=== PATIENT | male | born 1975 | race Caucasian/White ===

== ENCOUNTER 2016-11-10 16:36 | Inpatient (IN) | payer OTHER ==
--- NOTE | ~2016-11-10 | DS ---
Unit #: [id number] #: [id number] Patient: LACHELLE VIDES [id number] [address] [address] [id number] I MR#: [id number] NAME: LACHELLE VIDES ROOM: 477 Age: 41 Sex: M Admission Date: 11/10/2016 : 1975 Discharge Date: 11/12/2016 Attending Physician: Radha Mckay M.D. Primary Care Physician: Octaviano Webster M.D. DISCHARGE SUMMARY DISCHARGE DIAGNOSES 1. Diabetic ketoacidosis. 2. Abdominal pain. 3. Vomiting, which is improved. 4. Hypokalemia. 5. Hypophosphatemia. 6. Posttraumatic stress disorder/depression. 7. Tobacco abuse. 8. Noncompliance issues. DISCHARGE MEDICATIONS 1. Phos-NaK packets 250 mg three times a day. 2. Protonix 40 mg daily. 3. Aspirin 81 mg daily. 4. NovoLog 6 units subcu three times a day. 5. Lantus 30 units b.i.d. 6. Pravastatin 20 mg daily. 7. Cymbalta 60 mg q.h.s. 8. Neurontin. Continue home dose. 9. Tylenol 650 mg q.4 p.r.n. LAB WORKUP ON DISCHARGE WBC 5.2, hemoglobin 12.4, hematocrit 35.9, platelet count 233. Sodium 133, potassium 3.1, chloride 106, bicarb 23, BUN 6, creatinine 0.5, calcium 8.1, magnesium 8.1, phosphorous 1.2. Blood cultures were negative. Hemoglobin A1C 15.3. BNP on admission was 14. Influenza A and B were negative. Lactic acid 0.9. HOSPITAL COURSE Mr. Burns is a 41-year-old male who was admitted to the hospital with nausea, vomiting, abdominal pain. The patient was admitted to ICU, was found to be in diabetic ketoacidosis. Insulin drip for DKA protocol was started. Dr. Henao was consulted. IV fluids was given for hydration. The patient received Zofran on a p.r.n. basis for vomiting. He did complain of diarrhea at home, although he did not have any episode of diarrhea in the hospital. C. diff. was ordered but most likely it was just gastroenteritis or secondary to DKA. The patient is doing much better at this time. The patient is noncompliant with his medications. Counseling down at length. He does verbalize understanding. VITAL SIGNS ON DISCHARGE: Blood pressure is 108/74. Respiratory rate 16. Pulse 89. temperature 98.8. CHEST: Fair air entry. No additional sounds. CARDIOVASCULAR: S1, S2 positive. Regular rhythm. Unit #: [id number] #: [id number] Patient: LACHELLE VIDES ABDOMEN: Soft. EXTREMITIES: Negative edema. DISCHARGE INSTRUCTIONS 1. The patient is being discharged home if okay with Dr. Henao. 2. Medication as per medication reconciliation. 3. Follow up with primary care provider on Monday. He already has appointment. 4. Potassium will be given 14 mEq before discharge. Dictated by... Radha Mckay M.D. Radha TD: 11/14/2016 07:22 JOB #: [id number] DISCHARGE SUMMARY Page 1 of 1 X Radha Mckay MD X DISCHARGE SUMMARY
--- NOTE | ~2016-11-10 | CR72 ---
[facility] A Service of [facility] RADIOLOGY TEXT RESULTS PATIENT: LACHELLE VIDES LOCATION: CICCU3 CICCU3-20 : [birth year] UNIT #: [id number] AGE: [address]: Radha Mckay MD SEX: M ORDER DR: [id number] [facility] [address] [facility]. [place], [place] [address] [id number] I MR#: [id number] Acc #: [id number] NAME: LACHELLE VIDES : 1975 SEX: M STUDY DATE/TIME: 11/10/2016 17:05 UNIT: CEDOF ROOM: 68199 STUDY DESCRIPTION: CR Chest Single View Portable Attending Physician: Radha Mckay M.D. Ordering Physician: Judie Martinez M.D. Primary Care Physician: Octaviano Webster M.D. MEDICAL IMAGING REPORT This report is preliminary unless electronic signature is present EXAM Portable chest radiograph. DATE OF EXAM 11/10/2016 INDICATION Shortness of breath and cough for 5 days. FINDINGS Heart size is within normal limits. No acute infiltrates are seen. There is no pneumothorax or pleural effusion, curvilinear lucency overlying the right hemithorax is favored to be related to a skin fold. No acute infiltrates are identified. No aggressive osseous abnormalities are seen. Dictated by... Aretha Mahmood M.D. THIS IS AN ELECTRONICALLY VERIFIED REPORT Aretha Mahmood M.D. at 11/11/2016 4:30 PM AFF/uriah TD: 11/10/2016 21:46 JOB #: [id number] MEDICAL IMAGING REPORT Page 1 of 1 COPY
--- NOTE | ~2016-11-10 | A ---
[facility] Nutrition Therapy DATE: 11/11/16 Patient: LACHELLE PELAYOKACYGURJIT Physician: EKATERINA Address: [address] [place] [address] DRIVE Room/Bed: [address] [place] [address], Zip: [place] [address] Admit Date: 11/10/16 Date of : [birth year] Height: 6 0 Weight: 128 58.05 NUTRITIONAL ASSESSMENT: REASON: Seen due to dx and low BMI Admitting Dx: 41 y/o male admitted with DKA PMH: No new H&P available, info obtained from old documentation: DM, DKA, opiate abuse, non-compliance, GERD, HLD, [place], COPD, C. diff, CAD, neuropathy, seizure disorder, colitis, gastritis Anthropometrics: Ht: 72", Wt: 128 lbs (58.1 kg), BMI: 17 (underweight) Labs: Na 133, K+ 2.8, Phos 1.4, Glucose 146, POC 140-227, BUN 8, Creat 0.4, A1C 15.3 Meds: Novolin, Zofran, PPI, MgSO4, KCL, NACL I/O & Bowel function: No shift assessment available yet Skin Integrity: No shift assessment available yet Estimated Nutrition Needs: Increased 2' underweight status Assessment: Chart reviewed, events noted. See admitting dx and PMH as stated above. Patient on DKA protocol, glucose 333 md/dL upon admission. Patient has a hx of non-compliance with diabetic medications/diet. He is currently on a clear liquid diet, remains in the ER at this time- RD unable to interview. RD previously assessed last on 05/30/16 for same dx this admission- notes reviewed. Patient was 121 lbs at that time showing 7 lb weight gain since previous admission if weights are accurate, but he is still clinically underweight. RD left CC diet education materials at bedside, @ follow-up the patient requested RD return when his mother is present, as she cooks all his meals. However the patient was discharged before another f/u was able to be made. It was noted in previous documentation that the patient is missing teeth and requires soft foods, has hx of diarrhea noting hx of C. diff, gastritis and colitis. No shift assessment or updated H&P available yet. RD will follow up to assess tolerance of diet advancement, PO intake, education needs. See recs below. Dx: 1) Underweight r/t history, diet, lifestyle AEB BMI 17. 2) Altered nutrition related lab values r/t hx non-compliance AEB DKA, Hgb A1C 15.3, glucose POC 140-227 mg/dL. Intervention: CC diet, Glucerna TID, diet education? [facility] Nutrition Therapy DATE: 11/11/16 Patient: LACHELLE VIDES Physician: EKATERINA Address: [address] [place] [address] DRIVE Room/Bed: [address] [place] [address], Zip: [place] [address] Admit Date: 11/10/16 Date of : [birth year] Height: 6 0 Weight: 128 58.05 Monitoring, Evaluation and Goals: 1. Tolerance of diet advancement with PO intake > 50-75% of meals. 2. Gradual weight gain towards a healthy BMI range. 3. Improvement in glucose, lytes. Monitor: Per protocol, criteria to determine if above goals met Recommendations: 1. Advance oral diet as tolerated to 75g carb/mechanical soft diet (patient is missing teeth). Encourage small frequent meals to ensure adequate kcal/protein intake, as the patient is underweight. 2. Once diet advanced to full liquids or beyond please order chocolate Glucerna shakes TID. 3. Replace lytes. Optimize insulin regimen to promote adequate blood glucose control. 4. RD will follow-up to further determine diet education needs. Patient has a hx of being non-compliant with diabetic diet and medications in the past, RD has educated before. 5. Fluids per MD noting hyponatremia. 6. Please weigh q 3 days for monitoring purposes. RD will follow Moderate nutrition risk Respectfully, Candelaria Craig, RD, LD Food and Nutritional Services [facility] [place] [facility] cc: client file
--- NOTE | ~2016-11-10 | CO ---
Unit #: [id number] #: [id number] Patient: LACHELLE VIDES [id number] [address] [place], [place] [address] [id number] I MR#: [id number] NAME: LACHELLE VIDES ROOM: 477 Age: 41 Sex: M Admission Date: 11/10/2016 : 1975 Attending Physician: Radah Mckay M.D. Primary Care Physician: Octaviano Webster M.D. Consultation Date: 11/11/2016 CONSULTATION REPORT REASON FOR CONSULT Diabetes, ketoacidosis. REQUESTING PHYSICIAN Dr. Mckay. HISTORY OF PRESENT ILLNESS This is a 41-year-old gentleman who has history of type 1 diabetes mellitus, history of DKA in the past, multiple previous admissions who presented to the emergency room for not feeling well for about one week duration. He reports he started having nausea, vomiting, diarrhea and could not keep anything p.o. On arrival in emergency room, he was found to be in diabetic ketoacidosis. The blood glucose levels were (1) , pH was 7.1, bicarbonates were 8.5. Chemistry: Blood glucose was above 300 with a low bicarbonate and hyponatremia. He was admitted. He was started on insulin drip and IV hydration, transferred to the unit bed where patient is being seen at this time. He is awake and alert. Reports he has been taking his insulin regularly, has not missed any doses. PAST MEDICAL HISTORY 1. Type 1 diabetes mellitus, poorly controlled. 2. History of diabetic ketoacidosis in the past. 3. History of Clostridium difficile. 4. Hyperlipidemia. 5. Depression. 6. Posttraumatic disorder. 7. Stress test. 8. Peripheral neuropathy. 9. COPD. PAST SURGICAL HISTORY 1. Left shoulder surgery. 2. Left foot plantar abscess I and D. 3. History of EDG, colonoscopy in the past. SOCIAL HISTORY Lives with mother. Continues to smoke from several years. Declines alcohol. Urine drug screen is positive for marijuana, amphetamines. FAMILY HISTORY Diabetes and coronary artery disease. HOME MEDICATIONS 1. Lantus 30 units twice daily. Unit #: [id number] #: [id number] Patient: LACHELLE VIDES 2. Humalog per sliding scale. 3. Zanaflex. 4. Cymbalta. 5. Aspirin. 6. Protonix. REVIEW OF SYSTEMS A 10-point review of systems is completed. It is unremarkable at this time. Patient reports he is hungry. He has no nausea, vomiting. Diarrhea is resolved at this time. He has no abdominal pain. He is awake, alert, oriented to time, place, and person. The rest of the 10-point review of systems unremarkable. PHYSICAL EXAMINATION GENERAL: He is awake and alert. VITAL SIGNS: Vitals stable. Afebrile. Blood pressure is 107/87. HEENT: EOMI. Pupils equal, react to light. NECK: Supple. No thyromegaly noted. CHEST: Good air entry. CARDIOVASCULAR: Regular rhythm. No murmurs. ABDOMEN: Soft, nontender. Bowel sounds positive. EXTREMITIES: No edema noted. NEUROLOGIC: Nonfocal DIAGNOSTIC STUDIES LABORATORY: Creatinine 0.4, sodium 133, potassium 2.9. Anion gap is 7. Phosphorous is 1.4. A1c is 15.3. ASSESSMENT 1. Diabetic ketoacidosis, which is resolved. 2. Type 1 diabetes mellitus, poorly controlled. 3. History of polysubstance abuse and tobacco use. PLAN 1. Will discontinue insulin drip and IV fluids. 2. Will start patient on Levemir 20 units twice daily. 3. NovoLog 6 units each meal. 4. Consistent carb diet. 5. Cover with supplemental insulin as needed. 6. Accu-Cheks a.c. and at bedtime. 7. Replace electrolytes as per protocol including magnesium, potassium, and phosphorous. Thanks again for consultation. Dictated by... Yamileth Quick/marisela TD: 11/12/2016 15:25 JOB #: [id number] Unit #: [id number] #: [id number] Patient: LACHELLE VIDES CONSULTATION REPORT Page 1 of 1 X Bita Henao MD CONSULTATION REPORT
--- NOTE | ~2016-11-10 | HP ---
Unit #: [id number] #: [id number] Patient: LACHELLE VIDES [id number] [facility] [address] [facility]. [place], [place] [address] [id number] I MR#: [id number] NAME: LACHELLE VIDES ROOM: CIC3 Age: 41 Sex: M Admission Date: 11/10/2016 : 1975 Attending Physician: Radha Mckay M.D. Primary Care Physician: Octaviano Webster M.D. HISTORY AND PHYSICAL CHIEF COMPLAINT Vomiting, diarrhea and abdominal pain. HISTORY OF PRESENTING ILLNESS A 41-year-old male who has multiple medical problems, has been admitted multiple times. Last admission to [facility] was on June 04, 2016. At that time, he was diagnosed with C. diff. infection and DKA. The patient is known to be very noncompliant. His primary care provider is Dr. Webster. According to the patient, the last few days he has been having vomiting, diarrhea and abdominal pain. Abdominal pain was gradually getting worse. It was more than what he has normally with his stool. According to him, he does not think he has C. diff. at this time. He does not complain of fever but has been complaining of headache. According to him, headache is severe and the level is 9 to 10/10. The patient does seem to have a history of chronic pain. No complaint of chest pain. No complaint of palpitations. No complaint of dizziness or syncopal episode. PAST MEDICAL HISTORY 1. Diabetes mellitus. 2. Hyperlipidemia. 3. History of depression/posttraumatic stress disorder. 4. Peripheral neuropathy. 5. COPD. PAST SURGICAL HISTORY 1. History of left shoulder surgery. 2. Left foot plantar abscess I and D. 3. History of EGD and colonoscopy in the past. SOCIAL HISTORY Patient lives with mother. The patient is a smoker, has been smoking for a long period of time. No history of alcohol abuse. His urine tox screen is positive for marijuana and amphetamines. FAMILY HISTORY Diabetes and coronary artery disease. HOME MEDICATIONS 1. Pravastatin 20 mg daily. 2. Lantus 30 units subcu twice a day. 3. Humalog sliding scale with meals. 4. Zanaflex 4 mg three times a day. 5. Neurontin 800 mg three times a day. Unit #: [id number] #: [id number] Patient: LACHELLE VIDES 6. Cymbalta 60 mg q.h.s. 7. Aspirin 81 mg daily. 8. Protonix 40 mg daily. Again, I am not sure whether he has been taking medication even this time. REVIEW OF SYSTEMS The patient has no complaint of fever or chills. He has no complaint of chest pain or palpitations. No complaint of ear, nose, throat pain. No complaint of dizziness or syncopal episode. No complaint of any skin problem. No complaint of leg edema. He does complain of polyuria and polydipsia. No complaint of blurred vision. PHYSICAL EXAMINATION VITAL SIGNS: The patient is being evaluated in ICU, bed 20. At this time, blood pressure is 101/66, respiratory rate 12, pulse 75, temperature 97.9. Oxygen saturation is 99%. HEENT: Head is normocephalic. Eye movements are normal. NECK: Supple. CHEST: Fair air entry. No additional sounds. CARDIOVASCULAR: S1, S2 positive. Regular rhythm. ABDOMEN: Generalized tenderness is present. Bowel sounds positive in all quadrants. EXTREMITIES: Negative edema. Pulses are palpable. CENTRAL NERVOUS SYSTEM: Awake, alert, oriented x3. No focal neurological deficit. DIAGNOSTIC STUDIES LABORATORY: WBC 1.3, hemoglobin 15.1, hematocrit 45.7, platelet count 288. Influenza A and B is negative. Lactic acid 0.9. BNP 14. Sodium 129, potassium 4.1, chloride 99, BUN 11, creatinine 0.6, bicarb 9. Again, ABG was done 11/10/16 which shows pH 7.133, pCO2 25.4, pO2 54.4, oxygen saturation 88%. Magnesium 1.8. Amylase and lipase within normal range. Urinalysis: Ketones present. Hemoglobin A1C 15.3. IMAGING: CT scan of the abdomen and pelvis was done which showed mild wall thickening in multiple loops of small bowel suggesting enteritis. ASSESSMENT 1. The patient is being admitted to ICU with diagnosis of: 2. Diabetic ketoacidosis. 3. Abdominal pain, possible enteritis. 4. Vomiting, which is improved. 5. History of C. diff. in the past. 6. Severe hypokalemia. Potassium of 2.8. 7. Posttraumatic stress disorder/depression. 8. Noncompliance issues. 9. Tobacco abuse. PLAN Admit to ICU. The patient is being started on insulin drip DKA protocol. Dr. Henao, monitor tech, has been consulted. The patient will be NPO. Because of patient's enteritis kind of finding on the CT scan, we are going to start on IV Flagyl. Stool for C. diff. will be done. GI and DVT prophylaxis will be done. Please refer to progress note for further orders. Unit #: [id number] #: [id number] Patient: LACHELLE VIDES Dictated by Yamileth Valencia TD: 11/11/2016 14:27 JOB #: [id number] HISTORY AND PHYSICAL Page 1 of 1 X Radha Mckay MD X HISTORY AND PHYSICAL
--- NOTE | ~2016-11-10 | EKG ---
PATIENT: LACHELLE VIDES UNIT #: [id number] Ventricular Rate: 99 BPM Atrial Rate: 99 BPM P-R Interval: 172 ms QRS Duration: 92 ms Q-T Interval: 372 ms QTC Calculation(Bezet): 477 ms P Sanford: 77 degrees Calculated R Sanford: 64 degrees Calculated T Sanford: 72 degrees Diagnosis Line: Normal sinus rhythm Diagnosis Line: Right atrial enlargement Diagnosis Line: Low voltage QRS Diagnosis Line: Borderline ECG Diagnosis Line: When compared with ECG of 26-AUG-2016 09:40, Diagnosis Line: No significant change was found Diagnosis Line: Confirmed by ERVIN DO MD ([id number]) on 11/11/2016 Diagnosis Line: 7:15:39 PM INTERPRETING MD: ERNESTINA SOUZA
--- NOTE | ~2016-11-10 | FU ---
[facility] Nutrition Therapy DATE: 11/12/16 Patient: LACHELLE PELAYOKACYGURJIT Physician: EKATERINA Address: [address] [place] [address] DRIVE Room/Bed: [address] [place] [address], Zip: [place] [address] Admit Date: 11/10/16 Date of : [birth year] Height: 6 0 Weight: 123 56 NUTRITION MONITORING/FOLLOW-UP: Reason: PT SEEN FOR DIET EDUCATION RD PROVIDED WRITTEN AND VERBAL CC DIET EDUCATION. RD PROVIDED LIST OF FOODS TO AVOID/LIMIT AND FOODS TO EAT MORE OFTEN. RD ALSO EMPHASIZED IMPORTANCE OF MAINTAINING CONSISTENT MEAL SCHEDULE AND LIMITING SUGAR-SWEETENED BEVERAGES. PT DEMONSTRATED UNDERSTANDING OF THE TOPIC. OF NOTE, RDs HAVE PROVIDED DIET EDUCATION AT PAST ADMITS. PT REPORTED NO DIET QUESTIONS AT THIS TIME. RD TO REMAIN AVAILABLE. Recommendations: 1. CONTINUE TO ENCOURAGE COMPLIANCE OF CURRENT DIET ORDER-CC 2. ORDER TRUMAN GLUCERNA SHAKES TID W/MEALS RD WILL F/U PER PROTOCOL Respectfully, MAR SANTOS MS, RD, LD Food and Nutritional Services [facility] cc: client file
--- NOTE | ~2016-11-10 | CT2 ---
[facility] A Service of [facility] RADIOLOGY TEXT RESULTS PATIENT: LACHELLE VIEDS LOCATION: CEDOF : 71 UNIT #: [id number] AGE: [address]: Radha Mckay MD SEX: M ORDER DR: [id number] [facility] [address] [facility]. [place], [place] [address] [id number] I MR#: [id number] Acc #: [id number] NAME: LACHELLE VIDES : 1975 SEX: M STUDY DATE/TIME: 11/10/2016 19:04 UNIT: CEDOF ROOM: 86363 STUDY DESCRIPTION: CT Abd and Pelv W Cont Attending Physician: Radha Mckay M.D. Ordering Physician: Judie Martinez M.D. Primary Care Physician: Octaviano Webster M.D. MEDICAL IMAGING REPORT This report is preliminary unless electronic signature is present EXAM CT abdomen and pelvis INDICATION Nausea and vomiting. Hyperglycemia. Generalized abdominal pain for [address] of the abdomen and pelvis with 100 mL Isovue-370 IV contrast. Coronal and sagittal reconstructions were obtained. This CT exam was performed with one or more of the following radiation dose reduction techniques: automatic exposure control, adjustment of mA and/or kV according to patient size, and iterative reconstruction. COMPARISON CT abdomen dated 12/27/2015. FINDINGS The solid abdominal organs enhance normally. The gallbladder is not distended. There is mild wall thickening throughout the proximal jejunal loops. This is fairly similar to the prior study. There is no dilated bowel segments. The appendix is normal. No enlarged retroperitoneal or mesenteric lymph nodes. No ascites. Abdominal aorta is normal in caliber. PELVIS: The bladder is unremarkable. No enlarged pelvic or inguinal lymph nodes. IMPRESSION Mild wall thickening in multiple loops of small bowel suggesting enteritis. No evidence of small bowel obstruction, abscess, or perforation. [facility] A Service of [facility] RADIOLOGY TEXT RESULTS PATIENT: LACHELLE VIDES LOCATION: CEDOF : [birth year] UNIT #: [id number] AGE: [address]: Radha Mckay MD SEX: M ORDER DR: Dictated by... Spenser Bernal M.D. THIS IS AN ELECTRONICALLY VERIFIED REPORT Spenser Bernal M.D. at 11/11/2016 7:55 AM ZOILA/wilver TD: 11/10/2016 23:14 JOB #: [id number] MEDICAL IMAGING REPORT Page 1 of 1 COPY
[~2016-11-10 16:36] MED LIST: ACETAMINOPHEN PO; ACETAMINOPHEN650 M3 PO; ALBUTEROL17 GM INH; ALIGN4 MG PO; AMITRIPTYLINE H25 MG PO; AMITRYPTYLINE PO; ASPIR-TRIN325 MG PO; ASPIRIN PO; ASPIRIN81 M1 PO; ASPIRIN81 M2 PO; ASPIRIN81 MG PO; AUGMENTIN875 M1 PO; BACITRACIN1 GM OINT EXT; BACITRACIN3.5 GM; BACTRIM DS TABL1 TAB PO; CALAZIME P113 GM OI1 EXT; CLARITIN10 M2 PO; CLEOCIN HCL300 M1 PO; DARVOCET-N 1001 TA1 PO; DELTASONE20 MG PO; DICLOFENAC PO; DIFICID200 MG PO; DIFLUCAN200 MG PO; DOCUSATE SODIU100 MG PO; DULCOLAX5 MG PO; DULOXETINE HCL60 MG PO; FISH OIL PO; FLAGYL PO; FLAGYL250 M1 PO; FLORASTOR PO; FOLIC ACID PO; FOLIC ACID1 MG PO; GABAPENTIN400 M2 PO; GABAPENTIN600 MG PO; GABAPENTIN800 MG PO; GLUMETZA1000 MG/BO PO; HUMALOG100 U/M1; HUMALOG100 U/M2 SUBQ; HUMALOG100 U/ML; HUMALOG100 U/ML INJ; IBUPROFEN PO; IBUPROFEN800 MG PO; IMODIUM2 MG PO; INVOKANA100 MG PO; K-DUR20 ME1 PO; K-LOR20 MEQ PO; KCL PO; KEFLEX PO; KEFLEX500 M1 PO; KEFLEX500 MG PO; LANTUS100 U/ML INJ; LANTUS100 U/ML SQ; LANTUS100 U/ML SUBQ; LANTUS100 UNITS/ SUBQ; LEVAQUIN250 MG PO; LEVAQUIN750 MG PO; LEVEMIR; LEVEMIR SUBQ; LEVEMIR100 U/ML SUBQ; LEVEMIR100 UNITS/ SUBQ; LOMOTIL TABLET1 TAB PO; LORTAB 5/500 TA1 TA1 PO; LORTAB 5/500 TA1 TA2; LORTAB 5/500 TA1 TA2 PO; METFORMIN HCL1000 M1 PO; METFORMIN PO; MILK OF MAGNESIA PO; MULTIVITAMIN W/1 TAB PO; MUPIROCIN0.9 GM; NEURONTIN800 MG PO; NEUTRA-PHOS1.25 GM PO; NEXIUM PO; NICOTINE T1 PATCH .2 TOP; NOVOLOG100 U/ML SUBQ; PAIN & FEVER325 MG PO; PERICOLACE; PRAVASTATIN SOD40 MG PO; PRENATAL1 TA1 PO; PRINIVIL5 MG PO; PROMETHAZINE D118 ML PO; PROTONIX PO; PROTONIX40 MG/BLIS PO; REGLAN10 MG PO; REMERON PO; ROXICODONE5 MG PO; THIAMINE HCL100 MG PO; TRIAM; TRIAMCINOLONE AC1 GM EXT; TUMS PO; VOLTAREN75 MG PO; ZITHROMAX PO; ZOCOR PO; ZOCOR20 MG
[2016-11-10 16:59] LABS: BASOPHIL# 0.2 X10e3 (0-0.3); BASOPHIL% 2.2 % (0-2.5); EOSINOPHIL# 0.1 X10e3 (0-0.7); EOSINOPHIL% 1.7 % (0.0-7.0); HEMATOCRIT 45.7 % (38.0-50.0); HEMOGLOBIN 15.1 gm/dL (13.0-16.0); LYMPHOCYTE# 2.1 X10e3 (1.0-3.5); LYMPHOCYTE% 28.3 % (17.0-45.0); MEAN CELL VOLUME 94.9 FL (83-96); MEAN CORPUSCULAR HEMOGLOBIN 31.4 PG (28-34); MEAN CORPUSCULAR HGB CONC 33.1 g/dL (30-36); MEAN PLATELET VOLUME 8.2 FL (6.5-11.5); MONOCYTE# 0.4 X10e3 (0-1.0); NEUTROPHIL# 4.5 X10e3 (1.5-7.1); NEUTROPHIL% 61.8 % (40-75); PLATELET COUNT 288 X10e3 (140-420); RED BLOOD COUNT 4.81 X10e (3.90-5.60); RED CELL DISTRIBUTION WIDTH 13.8 % (11.0-15.5); WHITE BLOOD COUNT 7.3 X10e3 (4.0-10.5)
[2016-11-10 17:08] LABS: DIFF IND NO
[2016-11-10 17:11] LABS: INFLUENZA A NEG (NEG); INFLUENZA B NEG (NEG)
[2016-11-10 17:16] LABS: INR 0.9; PARTIAL THROMBOPLASTIN TIME 27.1 SECONDS (23.5-31.3); PROTHROMBIN TIME (PATIENT) 9.7 SECONDS (9.6-11.5)
[2016-11-10 17:25] LABS: URINE SOURCE CLEAN CATCH
[2016-11-10 17:27] LABS: POC - CKMB 1.8 ng/mL (0.0-7.9); POC - TROPONIN <0.05 ng/mL (<=0.05)
[2016-11-10 17:32] LABS: URINE APPEARANCE CLEAR; URINE BILIRUBIN NEG (NEG); URINE BLOOD NEG (NEG); URINE COLOR YELLOW; URINE GLUCOSE >1000 MG/DL (NEG); URINE KETONE 3+ (NEG); URINE LEUKOCYTE ESTERASE NEG (NEG); URINE NITRATE NEG (NEG); URINE PROTEIN 1+ (NEG); URINE SPECIFIC GRAVITY 1.031 (1.003-1.035); URINE UROBILINOGEN 0.2 MG/DL (NEG)
[2016-11-10 17:34] LABS: URBCS1 AUWI 0-2 /[HPF] (0-2); URINE BACTERIA AUWI NEG (NEGATIVE); URINE SQUAMOUS EPITHELIAL CELL NONE SEEN /[HPF]; UWBCS1 AUWI 0-2 (0-5)
[2016-11-10 17:35] LABS: CULTURE INDICATED? NO
[2016-11-10 17:41] LABS: AMPHETAMINE POS (NEG); BARBITURATES NEG (NEG); BENZODIAZEPINES NEG (NEG); COCAINE NEG (NEG); MARIJUANA POS (NEG); OPIATES NEG (NEG); TRICYCLIC ANTIDEPRESSANTS NEG (NEG); U METHADONE NEG (NEG)
[2016-11-10 18:13] LABS: ALBUMIN SERUM 4.7 g/dL (3.5-5.0); ALKALINE PHOSPHATASE 86 U/L (32-92); ALT (SGPT) 13 U/L (10-40); AST (SGOT) 12 U/L (10-42); BILIRUBIN,TOTAL 1.4 mg/dL (0.2-2.0); BLOOD UREA NITROGEN 11 mg/dL (9-23); BUN/CREATININE RATIO 18.33; CALCIUM SERUM 8.6 mg/dL (8.4-10.2); CHLORIDE 99 mmol/L (100-111); CREATININE SERUM 0.6 mg/dL (0.6-1.4); GLOM FILT RATE Estimated 123.2 mL/min (>60); GLUCOSE FASTING 333 mg/dL (70-110); POTASSIUM 4.1 mmol/L (3.5-5.1); PROTEIN TOTAL SERUM 7.7 g/dL (6.0-8.3); SODIUM 129 mmol/L (135-145)
[2016-11-10 18:15] LABS: ALCOHOL BLOOD <5 mg/dL ([, 0]); BETA HYDROXYBUTYRATE 10.67 MMOL/L (0.02-0.27); BILIRUBIN, DIRECT <0.1 mg/dL (0.0-0.2); BILIRUBIN,INDIRECT 1.3 mg/dL (0.0-0.9); CARBON DIOXIDE 9 mmol/L (22-31)
[2016-11-10 19:46] LABS: POC - CKMB <1.0 ng/mL (0.0-7.9); POC - TROPONIN <0.05 ng/mL (<=0.05)
[2016-11-10] MEDS ORDERED: PRAVACHOL (20:06)
[2016-11-10] MEDS ORDERED: HUMALOG100 UNIT/1 (20:06)
[2016-11-10] MEDS ORDERED: LANTUS100 U/ML (20:07)
[2016-11-10] MEDS ORDERED: NEURONTIN (20:07)
[2016-11-10] MEDS ORDERED: PROTONIX (20:07)
[2016-11-10] MEDS ORDERED: PROBIOTIC1 EAC1 (20:09)
[2016-11-10] MEDS ORDERED: ZANAFLEX (20:10)
[2016-11-10 20:27] LABS: ARTERIAL BLD GAS O2 SATURATION 88.2 % (90.0-100.0); ARTERIAL BLOOD GAS CARBOXY HB 0.9 %sat (0.0-9.0); ARTERIAL BLOOD GAS HCO3 8.5 mmol/L; ARTERIAL BLOOD GAS MET HB 0.7 %sat (0.0-2.0); ARTERIAL BLOOD GAS PCO2 25.4 mmHg (35.0-45.0)
[2016-11-10 20:33] LABS: ARTERIAL BLOOD GAS ALLEN TEST NORMAL; ARTERIAL BLOOD GAS ART SITE LEFT RADIAL; ARTERIAL BLOOD GAS PO2 54.4 mmHg (80.0-100); ARTERIAL BLOOD GAS pH 7.133 (7.350-7.450); ARTERIAL DRAW? YES
[2016-11-10 21:06] LABS: AMYLASE 22 U/L (0-46); LIPASE 24 U/L (22-51)
[2016-11-10 21:39] LABS: BUN/CREATININE RATIO 18.33; CALCIUM SERUM 7.7 mg/dL (8.4-10.2); CREATININE SERUM 0.6 mg/dL (0.6-1.4); GLOM FILT RATE Estimated 123.2 mL/min (>60)
[2016-11-11 01:39] LABS: CALCIUM SERUM 7.5 mg/dL (8.4-10.2); CREATININE SERUM 0.5 mg/dL (0.6-1.4); GLOM FILT RATE Estimated 132.8 mL/min (>60); POTASSIUM 3.1 mmol/L (3.5-5.1)
[2016-11-11 07:57] LABS: CALCIUM SERUM 7.7 mg/dL (8.4-10.2); CREATININE SERUM 0.4 mg/dL (0.6-1.4); GLOM FILT RATE Estimated 145.5 mL/min (>60)
[2016-11-11 08:01] LABS: POTASSIUM 2.8 mmol/L (3.5-5.1)
[2016-11-11] MEDS ORDERED: ASPIRIN81 M2 PO (09:09)
[2016-11-11] MEDS ORDERED: ZANAFLEX4 M1 PO (09:09)
[2016-11-11] MEDS ORDERED: PROTONIX PO (09:09)
[2016-11-11] MEDS ORDERED: DULOXETINE HCL60 MG PO (09:09)
[2016-11-11] MEDS ORDERED: NEURONTIN800 MG PO (09:09)
[2016-11-11] MEDS ORDERED: LANTUS100 U/ML SUBQ (09:10)
[2016-11-11] MEDS ORDERED: PRAVASTATIN SOD20 MG PO (09:10)
[2016-11-11] MEDS ORDERED: HUMALOG100 UNIT/1 SUBQ (09:11)
[2016-11-11 13:56] LABS: BUN/CREATININE RATIO 17.5; CALCIUM SERUM 7.9 mg/dL (8.4-10.2); CREATININE SERUM 0.4 mg/dL (0.6-1.4); GLOM FILT RATE Estimated 145.5 mL/min (>60)
[2016-11-11 13:58] LABS: POTASSIUM 2.9 mmol/L (3.5-5.1)
[2016-11-11 19:56] LABS: BUN/CREATININE RATIO 16.66; CALCIUM SERUM 8.2 mg/dL (8.4-10.2); CREATININE SERUM 0.3 mg/dL (0.6-1.4); GLOM FILT RATE Estimated 163.8 mL/min (>60); POTASSIUM 3.8 mmol/L (3.5-5.1)
[2016-11-12 05:43] LABS: BASOPHIL# 0.1 X10e3 (0-0.3); BASOPHIL% 1.5 % (0-2.5); EOSINOPHIL# 0.3 X10e3 (0-0.7); EOSINOPHIL% 5.6 % (0.0-7.0); HEMATOCRIT 35.9 % (38.0-50.0); HEMOGLOBIN 12.4 gm/dL (13.0-16.0); LYMPHOCYTE# 2.2 X10e3 (1.0-3.5); LYMPHOCYTE% 42.8 % (17.0-45.0); MEAN CELL VOLUME 91.3 FL (83-96); MEAN CORPUSCULAR HEMOGLOBIN 31.5 PG (28-34); MEAN CORPUSCULAR HGB CONC 34.5 g/dL (30-36); MEAN PLATELET VOLUME 7.8 FL (6.5-11.5); MONOCYTE# 0.5 X10e3 (0-1.0); MONOCYTE% 9.2 % (3.0-12.0); NEUTROPHIL# 2.1 X10e3 (1.5-7.1); NEUTROPHIL% 40.9 % (40-75); PLATELET COUNT 233 X10e3 (140-420); RED BLOOD COUNT 3.93 X10e (3.90-5.60); RED CELL DISTRIBUTION WIDTH 13.9 % (11.0-15.5); WHITE BLOOD COUNT 5.2 X10e3 (4.0-10.5)
[2016-11-12 05:44] LABS: DIFF IND NO
[2016-11-12 06:43] LABS: ALBUMIN SERUM 3.3 g/dL (3.5-5.0); BILIRUBIN,TOTAL 0.3 mg/dL (0.2-2.0); CALCIUM SERUM 8.1 mg/dL (8.4-10.2); CREATININE SERUM 0.5 mg/dL (0.6-1.4); GLOM FILT RATE Estimated 132.8 mL/min (>60); MAGNESIUM 1.8 mg/dL (1.6-3.0); POTASSIUM 3.1 mmol/L (3.5-5.1); PROTEIN TOTAL SERUM 5.2 g/dL (6.0-8.3)
[2016-11-12] MEDS ORDERED: PHOS NAK PO (13:32)
[2016-11-12] MEDS ORDERED: APAP325 M2 PO (13:34)
[2016-11-12] MEDS ORDERED: NOVOLOG100 U/ML SUBQ (13:38)
[2017-01-12] MEDS ORDERED: LANTUS100 U/ML SUBQ (09:25)
[2017-01-12] MEDS ORDERED: HUMALOG100 UNIT/1 SUBQ (09:26)
[2017-01-12] MEDS ORDERED: HUMALOG100 UNIT/1 (09:26)
[2017-01-12] MEDS ORDERED: PROTONIX PO (09:27)
[2017-01-12] MEDS ORDERED: LO-DOSE ASPIRIN81 M1 PO (09:27)
[2017-01-12] MEDS ORDERED: PRAVASTATIN SOD40 MG PO (09:27)
[2017-01-12] MEDS ORDERED: PHENERGAN PO (09:28)
[2017-01-12] MEDS ORDERED: PHENERGAN LIQUID PO (09:29)
[2017-01-12] MEDS ORDERED: GABAPENTIN800 MG PO (09:30)
[2017-01-12] MEDS ORDERED: CYMBALTA PO (09:30)
[2017-01-12] MEDS ORDERED: PROBIOTIC1 EAC2 PO (09:30)
[2017-01-12] MEDS ORDERED: ZYPREXA20 MG PO (09:31)
[2017-04-27] MEDS ORDERED: ASPIRIN81 M2 PO (11:15)
[2017-04-27] MEDS ORDERED: PROTONIX PO (11:15)
[2017-04-27] MEDS ORDERED: PATIENT'S PHARMACY (11:15)
[2017-04-27] MEDS ORDERED: LORTAB 7.5-3251 EACH PO (11:15)
[2017-04-27] MEDS ORDERED: HUMALOG KW100 UNIT/1 SUBQ (11:16)
[2017-04-27] MEDS ORDERED: GABAPENTIN400 M2 PO (11:16)
[2017-04-27] MEDS ORDERED: DULOXETINE HCL60 M1 PO (11:16)
[2017-04-27] MEDS ORDERED: BASAGLAR K100 UNIT/1 SUBQ (11:16)
[2017-04-27] MEDS ORDERED: PRAVACHOL PO (11:16)
[2017-04-27] MEDS ORDERED: ZYPREXA PO (11:16)
== END 2016-11-12 15:35 | disposition home or self-care (01) | DRG 638 ==
LOC: CED 16:36 → CEDOF 20:23 → CICCU3 11-11 10:00 → C4C 11-12 07:19
PROVIDERS: Emergency Medicine; Physician Assistant Medical
DX: E10.10 Type 1 diabetes mellitus with ketoacidosis without coma (principal); E87.1 Hypo-osmolality and hyponatremia; E83.39 Other disorders of phosphorus metabolism; K52.9 Noninfective gastroenteritis and colitis, unspecified; E87.6 Hypokalemia; Z88.8 Allergy status to other drugs, medicaments and biological substances; F43.10 Post-traumatic stress disorder, unspecified; F32.9 Major depressive disorder, single episode, unspecified; F17.210 Nicotine dependence, cigarettes, uncomplicated; Z91.19 Patient's noncompliance with other medical treatment and regimen; E78.5 Hyperlipidemia, unspecified; G62.9 Polyneuropathy, unspecified; J44.9 Chronic obstructive pulmonary disease, unspecified; Z83.3 Family history of diabetes mellitus; Z82.49 Family history of ischemic heart disease and other diseases of the circulatory system; Z79.82 Long term (current) use of aspirin; Z79.4 Long term (current) use of insulin
CPT/HCPCS: 36415; 36600; 71010; 74177; 80048; 80053; 80076; 80307; 81003; 82010; 82150; 82553; 82803; 82947; 83036; 83605; 83690; 83735; 83880; 84100; 84484; 85025; 85610; 85730; 87040; 87804; 93005; 96361; 96372; 96374; 96375; 99285; G0480; J1650; J1815; J1885; J2405; J3475; Q9967

== ENCOUNTER → 2016-12-09 | Outpatient (CLI) | payer OTHER ==
[~2016-12-09] MED LIST changes: +APAP325 M2 PO; +AUGMENTIN PO; +BASAGLAR K100 UNIT/1 SUBQ; +CYMBALTA PO; +DULOXETINE HCL60 M1 PO; +HUMALOG KW100 UNIT/1 SUBQ; +HUMALOG100 UNIT/1; +HUMALOG100 UNIT/1 SUBQ; +LANTUS100 U/ML; +LEVEMIR INJ; +LO-DOSE ASPIRIN81 M1 PO; +LORTAB 7.5-3251 EACH PO; +METRONIDAZOLE PO; +NEURONTIN; +NORCO 7.5-3251 EACH PO; +NOVOLIN R100 UNITS/ INJ; +PATIENT'S PHARMACY; +PHENERGAN LIQUID PO; +PHENERGAN PO; +PHENERGAN12.5 MG/0. PO; +PHOS NAK PO; +PRAVACHOL; +PRAVACHOL PO; +PRAVASTATIN SOD20 MG PO; +PROBIOTIC1 EAC1; +PROBIOTIC1 EAC2 PO; +PROTONIX; +VANCOMYCIN PO; +ZANAFLEX; +ZANAFLEX4 M1 PO; +ZYPREXA PO; +ZYPREXA10 MG PO; +ZYPREXA20 MG PO
--- NOTE | ~2016-12-09 | CT2 ---
[facility] A Service of [facility] RADIOLOGY TEXT RESULTS PATIENT: LACHELLE VIDES LOCATION: [facility] : 71 UNIT #: [id number] AGE: [address]: Micah Watkins MD SEX: M ORDER DR: [id number] [facility] [address] [facility]. [place], [place] [address] [id number] MR#: [id number] Acc #: [id number] NAME: LACHELLE VIDES : 1975 SEX: M STUDY DATE/TIME: 12/09/2016 9:19 UNIT: [facility] ROOM: STUDY DESCRIPTION: CT Abd and Pelv W Cont Attending Physician: Micah Watkins M.D. Ordering Physician: Micah Watkins M.D. Primary Care Physician: Octaviano Webster M.D. MEDICAL IMAGING REPORT This report is preliminary unless electronic signature is present EXAM CT abdomen and pelvis with contrast. INDICATION Lower abdominal pain for the past 1 1/2 months. PROCEDURE Contrast-enhanced CT of the abdomen and pelvis. 100 mL of Isovue-370. This CT exam was performed with one or more of the following radiation dose reduction techniques: automatic exposure control, adjustment of mA and/or kV according to patient size, and iterative reconstruction. COMPARISON STUDIES 11/10/2016 FINDINGS The included lung bases are clear. The liver, spleen, kidneys, adrenal glands, pancreas, gallbladder unremarkable. The bowel loops are nondilated. There is small bowel wall thickening and fold thickening, particularly in the left side of the abdomen. No abdominal fluid collection. PELVIS WITH CONTRAST: No pelvic mass or fluid. There is a 1.5 cm right inguinal node that is slightly larger than on the prior. No aggressive appearing bone lesion. IMPRESSION 1. Bowel wall thickening and fold thickening involving the small bowel, particularly in the left side of the abdomen. Findings are most suggestive of enteritis. There is no evidence for obstruction or abscess. [facility] A Service of [facility] RADIOLOGY TEXT RESULTS PATIENT: LACHELLE VIDES LOCATION: [facility] : 71 UNIT #: [id number] AGE: [address]: Micah Watkins MD SEX: M ORDER DR: 2. Slight interval increase in size in a mildly prominent right inguinal node. This is nonspecific. It may be reactive and can be followed. Correlate with any relevant history or examination findings. Dictated by... Dmitri Paula M.D. THIS IS AN ELECTRONICALLY VERIFIED REPORT Dmitri Paula M.D. at 12/12/2016 7:43 AM AYAKA/harman TD: 12/09/2016 12:38 JOB #: [id number] MEDICAL IMAGING REPORT Page 1 of 1 COPY
[2016-12-09 07:40] LABS: HEMATOCRIT 38.6 % (38.0-50.0); HEMOGLOBIN 12.8 gm/dL (13.0-16.0); MEAN CELL VOLUME 95.4 FL (83-96); MEAN CORPUSCULAR HEMOGLOBIN 31.6 PG (28-34); MEAN CORPUSCULAR HGB CONC 33.1 g/dL (30-36); MEAN PLATELET VOLUME 7.7 FL (6.5-11.5); RED BLOOD COUNT 4.04 X10e (3.90-5.60); RED CELL DISTRIBUTION WIDTH 13.7 % (11.0-15.5); WHITE BLOOD COUNT 5.2 X10e3 (4.0-10.5)
[2016-12-09 09:00] LABS: ALBUMIN SERUM 4.4 g/dL (3.5-5.0); BILIRUBIN,TOTAL 0.7 mg/dL (0.2-2.0); BUN/CREATININE RATIO 24.28; CALCIUM SERUM 9.3 mg/dL (8.4-10.2); CREATININE SERUM 0.7 mg/dL (0.6-1.4); GLOM FILT RATE Estimated 115.6 mL/min (>60); POTASSIUM 4.4 mmol/L (3.5-5.1); PROTEIN TOTAL SERUM 7.1 g/dL (6.0-8.3)
== END | disposition home or self-care (01) ==
LOC: CCAT 07:19
PROVIDERS: Internal Medicine
DX: R10.9 Unspecified abdominal pain (principal); R11.2 Nausea with vomiting, unspecified; R19.7 Diarrhea, unspecified; R93.3 Abnormal findings on diagnostic imaging of other parts of digestive tract
CPT/HCPCS: 36415; 74177; 80053; 85027; 85652; 86140; Q9967

== ENCOUNTER 2016-12-13 13:02 | Inpatient (IN) | payer OTHER ==
--- NOTE | ~2016-12-13 | CO ---
Unit #: [id number] #: [id number] Patient: LACHELLE VIDES [id number] [facility] [address] [facility]. [place], [place] [address] [id number] I MR#: [id number] NAME: LACHELLE VIDES ROOM: 558 Age: 41 Sex: M Admission Date: 12/13/2016 : 1975 Attending Physician: Radha Mckay M.D. Primary Care Physician: Octaviano Webster M.D. CONSULTATION REPORT DISCUSSION Mr. Burns is a 41-year-old male, seen in room 558, bed 1 on 12/23/2016 at [facility]. The patient was pleasant and cooperative during interview. Reports sleeping good, decrease in anxiety and mood lability. Denied any thoughts of harming self or others. Denied any hallucination. No side effects from medication. Making progress, looking forward to be discharged soon. The patient vital signs; temperature 99.3, pulse 100, respirations 18, blood pressure 117/86, oxygen saturation 99%. REVIEW OF SYSTEMS A complete review of systems is unremarkable. MENTAL STATUS EXAMINATION Vital signs; please see above. General appearance; the patient is tall, well built, dressed casually in hospital attire. Attention span and concentration, fair. Speech; regular rate and coherent. Oriented in time, place, and person. Mood and affect, labile. Thought process, coherent. Thought content; the patient denied any thoughts of harming self or others. Recent and remote memory, fair. Language, intact. Fund of knowledge, fair to slightly impaired. Insight and judgment, fair to slightly impaired. DIAGNOSIS Psychiatric: Bipolar mood disorder, not otherwise specified, F31.89. ASSESSMENT AND PLAN 1. Supportive psychotherapy and psychoeducation provided to the patient. 2. Educated about benefits and side effects of medication and course and prognosis of illness. 3. Advised to continue with current medication. If needed, consider further adjustment of medication. Please feel free to call if any questions, telephone #[phone]. Dictated by... Adien Trujillo M.D. OMAR/bernardo TD: 12/24/2016 14:30 JOB #: [id number] Unit #: [id number] #: [id number] Patient: LACHELLE VIDES EVELIA CONSULTATION REPORT Page 1 of 1 X Aiden Trujillo MD CONSULTATION REPORT
--- NOTE | ~2016-12-13 | CO ---
Unit #: [id number] #: [id number] Patient: LACHELLE VIDES [id number] [address] [place], [place] [address] [id number] I MR#: [id number] NAME: LACHELLE VIDES ROOM: 558 Age: 41 Sex: M Admission Date: 12/13/2016 : 1975 Attending Physician: Radha Mckay M.D. Primary Care Physician: Octaviano Webster M.D. Consultation Date: 12/14/2016 CONSULTATION REPORT REASON FOR CONSULT DKA. HISTORY OF PRESENT ILLNESS This is a 41-year-old male who was recently discharged about a month ago. He was admitted with DKA. He presented back to the emergency room not feeling well, high blood sugars, abdominal pain and reports some diarrhea, but no diarrhea has been noted since his admission. I am not sure he is compliant with his medicines, but he does insist that he has been taking his insulin as prescribed. On his arrival in the emergency room he was found to be in diabetic ketoacidosis, blood glucose of 380 with severe metabolic acidosis with a pH of 7.2 and bicarb of 9.5 on blood gas. Was admitted to the unit bed, started on IV fluids and insulin drip. Patient is being seen in the ICU. MEDICAL HISTORY 1. Type 1 diabetes mellitus. 2. History of recurrent diabetic ketoacidosis. 3. Chronic diarrhea. 4. History of peripheral neuropathy. 5. History of depression and ADHD. 6. PTSD. PAST SURGICAL HISTORY 1. Left shoulder surgery. 2. Left foot plantar surgery. 3. History of I and D. 4. History of EGD and colonoscopy in the past. SOCIAL HISTORY Lives with mother. Continues to smoke cigarettes and marijuana. Declines alcohol. FAMILY HISTORY Diabetes, coronary artery disease. HOME MEDICATIONS (as per patient) 1. Lantus 30 units twice daily. 2. Humalog 6 units each meal plus sliding scale. 3. Zanaflex. 4. Cymbalta. 5. Aspirin. 6. Protonix. Unit #: [id number] #: [id number] Patient: LACHELLE VIDES ALLERGIES Codeine and Levaquin, hydromorphone. REVIEW OF SYSTEMS A 12-point review of systems was completed, remarkable as noted in the HPI. At this time, the patient has no nausea, vomiting, abdominal pain or diarrhea. He is (1) dysuria. No neuro deficits. No lesion problems. No headaches. The rest of the review of systems unremarkable. PHYSICAL EXAMINATION GENERAL: He looks very comfortable, no acute distress. VITAL SIGNS: Afebrile. Temperature 97.7, pulse 83, respirations 16, blood pressure 95/63. HEENT: EOMI. Pupils equally react to light. NECK: Supple. No thyromegaly noted. No lymphadenopathy. CHEST: Good air entry. No wheezing. CVS: Regular rhythm. S1 and S2. No murmurs. ABDOMEN: Soft. Nontender. Nondistended. No guarding, rigidity noted. Bowel sounds positive. EXTREMITIES: No ulcers or edema noted. NEUROLOGIC: Nonfocal. SKIN: No rash. DIAGNOSTIC STUDIES LABORATORY: Labs were reviewed. Creatinine is 0.3, BUN 8, sodium 132, potassium 3.2, phosphorous 1.6, calcium 8.2. A1C is 15.4. ASSESSMENT 1. Diabetic ketoacidosis, which is resolved. 2. Hypokalemia. 3. Hypophosphatemia. 4. Dehydration. 5. COPD. PLAN/RECOMMENDATIONS Will discontinue insulin drip. Will start patient on Levemir 15 units subcu twice daily, NovoLog 6 units each meal, advance diet as tolerated to consistent carb diet. Accu-Cheks a.c. and h.s. Replace potassium per protocol. Replace magnesium. Neutra-Phos 1 pack p.o. t.i.d. for 2 days. Thanks again for the consultation. Dictated by... Yamileth Quick/dhiraj TD: 12/15/2016 09:09 JOB #: [id number] Unit #: [id number] #: [id number] Patient: LACHELLE VIDES CONSULTATION REPORT Page 1 of 1 X Bita Henao MD CONSULTATION REPORT
--- NOTE | ~2016-12-13 | CT4 ---
[facility] A Service of [facility] & [facility] RADIOLOGY TEXT RESULTS PATIENT: LACHELLE VIDES LOCATION: [facility] 558-01 : [birth year] UNIT #: [id number] AGE: [address]: Radha Mckay MD SEX: M ORDER DR: [id number] [facility] [address] [facility]. [place], [place] [address] [id number] I MR#: [id number] Acc #: [id number] NAME: LACHELLE VIDES : 1975 SEX: M STUDY DATE/TIME: 12/16/2016 13:43 UNIT: [facility] ROOM: [facility] STUDY DESCRIPTION: CT Abd and Pelv Wo Cont Attending Physician: Radha Mckay M.D. Ordering Physician: Saul Pacheco M.D. Primary Care Physician: Octaviano Webster M.D. MEDICAL IMAGING REPORT This report is preliminary unless electronic signature is present EXAM CT of the abdomen and pelvis without contrast. INDICATION Abdominal pain for 2 weeks. Patient was apparently diagnosed with C. diff at some point. TECHNIQUE Axial CT images were obtained from the dome of the diaphragm through the symphysis pubis. No oral contrast was administered for this study, although, the patient did undergo a small bowel follow through on December 15, 2016. This CT exam was performed with one or more of the following radiation dose reduction techniques: automatic exposure control, adjustment of mA and/or kV according to patient size, and iterative reconstruction. FINDINGS Images through the lung bases demonstrate some background emphysematous changes. Stable noncalcified pulmonary nodules are identified at the lung base, unchanged since July of 2013, and is benign. Patient's stomach is somewhat distended and contains residual oral contrast material from prior small bowel follow through. Liver is unremarkable. Gallbladder is contracted. Calcified granulomata are seen within the spleen. Proximal small bowel is within normal limits. The adrenal glands appear unremarkable given nonenhanced technique, as are kidneys. I do not see any free fluid or adenopathy within the abdomen, and there is no evidence of mechanical bowel obstruction. The patient's appendix is visualized and is within normal limits. Urinary bladder and prostate gland appear normal. I do not see any free fluid or adenopathy within the pelvis, while the patient reportedly has a history of Clostridium difficile. Review of bony windows does not demonstrate any aggressive osseous abnormalities, the patient is noted to have some STS. [facility] A Service of [facility] & [facility] RADIOLOGY TEXT RESULTS PATIENT: LACHELLE VIDES LOCATION: [facility] 558-01 : [birth year] UNIT #: [id number] AGE: [address]: Radha Mckay MD SEX: M ORDER DR: prominent inguinal nodes. Dictated by... Aretha Mahmood M.D. AFF/jt TD: 12/16/2016 20:20 JOB #: [id number] IMPRESSION 1. While patient reportedly has a history of C. difficile, the colon appears grossly unremarkable on this examination. There is no evidence of mechanical bowel obstruction. No free fluid or adenopathy seen within the abdomen or pelvis. 2. Patient does have fairly extensive residual oral contrast material identified within the stomach from the recent small bowel follow through. JOB: [id number] Dictated by... Aretha Mahmood M.D. THIS IS AN ELECTRONICALLY VERIFIED REPORT Aretha Mahmood M.D. at 12/19/2016 7:56 AM AFF/pcl TD: 12/16/2016 20:17 JOB #: [id number] MEDICAL IMAGING REPORT Page 1 of 1 COPY
--- NOTE | ~2016-12-13 | EKG ---
PATIENT: LACHELLE VIDES UNIT #: [id number] Ventricular Rate: 98 BPM Atrial Rate: 98 BPM P-R Interval: 168 ms QRS Duration: 90 ms Q-T Interval: 382 ms QTC Calculation(Bezet): 487 ms P [place]: 74 degrees Calculated R [place]: 54 degrees Calculated T [place]: 63 degrees Diagnosis Line: Normal sinus rhythm Diagnosis Line: Right atrial enlargement Diagnosis Line: Low voltage QRS Diagnosis Line: Prolonged QT Diagnosis Line: Abnormal ECG Diagnosis Line: When compared with ECG of 10-NOV-2016 16:38, Diagnosis Line: No significant change was found Diagnosis Line: Confirmed by MARCO PAEZ MD ([id number]) on 12/14/2016 Diagnosis Line: 10:04:37 AM INTERPRETING MD: JEANNINE SOUZA
--- NOTE | ~2016-12-13 | EKG ---
PATIENT: LACHELLE VIDES UNIT #: [id number] Ventricular Rate: 95 BPM Atrial Rate: 95 BPM P-R Interval: 178 ms QRS Duration: 94 ms Q-T Interval: 396 ms QTC Calculation(Bezet): 497 ms P [place]: 70 degrees Calculated R [place]: 54 degrees Calculated T [place]: 65 degrees Diagnosis Line: Normal sinus rhythm Diagnosis Line: Right atrial enlargement Diagnosis Line: Low voltage QRS Diagnosis Line: Prolonged QT Diagnosis Line: Abnormal ECG Diagnosis Line: When compared with ECG of 13-DEC-2016 14:46, Diagnosis Line: (unconfirmed) Diagnosis Line: No significant change was found Diagnosis Line: Confirmed by MARCO PAEZ MD ([id number]) on 12/14/2016 Diagnosis Line: 10:05:41 AM INTERPRETING MD: JEANNINE SOUZA
--- NOTE | ~2016-12-13 | CO ---
Unit #: [id number] #: [id number] Patient: LACHELLE BUTLER [id number] [facility] [address] [facility]. [place], [place] [address] [id number] I MR#: [id number] NAME: LACHELLE BUTLER ROOM: 558 Age: 41 Sex: M Admission Date: 12/13/2016 : 1975 Attending Physician: Radha Mckay M.D. Primary Care Physician: Octaviano Webster M.D. Consultation Date: 12/22/2016 CONSULTATION REPORT REASON FOR CONSULTATION Followup. DISCUSSION Mr. Lachelle Butler is a 41-year-old white male seen in room 558, bed 1 on 12/22/[address] [facility]. Patient is reporting sleeping well, decrease in anxiety, depression and mood lability. Still having periods of mood swings but getting better. No side effects of medication, able to sleep well. Patient dressed in hospital attire, lying comfortably in bed. Patient's vital signs - 97.7; 83; 20; 93/62; oxygen saturation 98%. REVIEW OF SYSTEMS Complete review of systems unremarkable. MENTAL STATUS EXAMINATION Vital signs - Please see above. General appearance - Patient is tall, thinly built, dressed casually in hospital attire, lying comfortably in bed. Attention span, concentration - Fair. Speech - Regular rate, coherent. Oriented to time, place and person. Mood and affect - Labile. Thought process - Coherent. Thought content - Patient denied any thoughts of harming self or others or any psychotic symptoms. Recent and remote memory - Fair. Language - Intact. Fund of knowledge - Fair. Insight and judgment - Fair to slightly impaired. DIAGNOSIS PSYCHIATRIC - Bipolar mood disorder, NOS, F31.89. ASSESSMENT AND PLAN 1. Supportive psychotherapy and psychoeducation provided to the patient. 2. Educated about benefits and side effects of medication and course and prognosis of illness. 3. Advised to continue with current combination of medication of Cymbalta and Zyprexa. If needed, consider further adjustment of medication. Please feel free to call with any questions, telephone number . Dictated by... Aiden Trujillo M.D. OMAR/dhiraj Unit #: [id number] #: [id number] Patient: LACHELLE BUTLER TD: 12/23/2016 08:13 JOB #: [id number] CONSULTATION REPORT Page 1 of 1 X Aiden Trujillo MD CONSULTATION REPORT
--- NOTE | ~2016-12-13 | CT125 ---
[facility] A Service of [facility] & [facility] RADIOLOGY TEXT RESULTS PATIENT: LACHELLE VIDES LOCATION: [facility] 558- : [birth year] UNIT #: [id number] AGE: [address]: Radha Mckay MD SEX: M ORDER DR: [id number] [facility] [address]. [place], [place] [address] [id number] I MR#: [id number] Acc #: [id number] NAME: LACHELLE VIDES : 1975 SEX: M STUDY DATE/TIME: 12/20/2016 21:16 UNIT: [facility] ROOM: [facility] STUDY DESCRIPTION: CT Upper Ext Lt W Cont Attending Physician: Radha Mckay M.D. Ordering Physician: Saul Pacheco M.D. Primary Care Physician: Octaviano Webster M.D. MEDICAL IMAGING REPORT This report is preliminary unless electronic signature is present EXAM CT of the left upper extremity (proximal forearm through hand) with IV contrast, 12/20/2016 and 12/21/2016 COMPARISON Left upper extremity venous Doppler 12/20/2016. HISTORY Order states left upper extremity CT without contrast. Rule out abscess. Internal medicine progress note dated 12/20/2016 states left upper extremity swelling and redness. Temperature 102. Cellulitis. Status post DKA. Technologist reports swelling, pain marked with fish oil pills. Symptoms since a.m. of 12/20/2016. TECHNIQUE This CT exam was performed with one or more of the following radiation dose reduction techniques: automatic exposure control, adjustment of mA and/or kV according to patient size, and iterative reconstruction. FINDINGS Initial exam performed on 12/20/2016 at 21:16 p.m. was positioned such that the left upper extremity was placed transversely across the upper abdomen. Given significant image noise and exam limitations, repeat examination was performed on 12/21/2016 at 15:07 p.m. with the patient's upper extremity above the head. There is forearm subcutaneous inflammation/edema likely related to the clinically reported cellulitis. There is a 2.0-3.0 cm in length potential thrombosed subcutaneous vein in the radial aspect of the distal forearm closer to the dorsal side. Given different density from the remainder of the enhanced subcutaneous veins, findings are concerning for superficial venous thrombosis in the cephalic STS. [facility] A Service of [facility] & [facility] RADIOLOGY TEXT RESULTS PATIENT: LACHELLE VIDES LOCATION: [facility] 558-01 : [birth year] UNIT #: [id number] AGE: [address]: Radha Mckay MD SEX: M ORDER DR: system. There is an adjacent potential small nonenhancing fluid collection interposed between the vein and the skin. This potential fluid collection measures 13.0 x 5.0 mm (craniocaudal x transverse) and is concerning for a small adjacent abscess. Focused ultrasound of this vein and adjacent area could be considered if this would change clinical management. There is no evidence of septic arthritis or osteomyelitis. No additional fluid collections are noted. Initial preliminary reading provided by Dr. Hitesh Paula on 12/21/2016 at 17:16 p.m. IMPRESSION 1. Suspected nearly 3.0 cm superficial venous thrombosis along the dorsal radial side of the distal forearm with an adjacent suspected fluid collection/abscess measuring 13.0 x 5.0 mm. See montage images. 2. Generalized forearm, wrist, and hand subcutaneous swelling compatible with clinically reported cellulitis. 3. No fracture or evidence of septic arthritis or osteomyelitis. 4. You could consider focused ultrasound of the area of concern to confirm the potential thrombosis as well as fluid collection if this would alter clinical management. 5. Findings discussed with Dr. Livan Gimenez on 12-22-18 at 11:15 am after unsuccessful contact attempts for Drs. Pacheco and Woody. STAT * RESULT Dictated by... Ann Tinoco M.D. THIS IS AN ELECTRONICALLY VERIFIED REPORT Ann Tinoco M.D. at 12/22/2016 11:29 AM Jewel TD: 12/22/2016 08:55 JOB #: [id number] MEDICAL IMAGING REPORT Page 1 of 1 COPY
--- NOTE | ~2016-12-13 | OR ---
Unit #: [id number] #: [id number] Patient: LACHELLE BUTLER [id number] [address] [place], [place] [address] [id number] MR#: [id number] NAME: LACHELLE BUTLER ROOM: 558 Date of Procedure: 12/22/2016 Admission Date: 12/13/2016 Surgeon: Livan Gimenez M.D. : 1975 Attending Physician: Radha Mckay M.D. Primary Care Physician: Octaviano Webster M.D. PROCEDURE OPERATIVE NOTE PREOPERATIVE DIAGNOSIS Left forearm abscess. POSTOPERATIVE DIAGNOSIS Left forearm abscess. PROCEDURE PERFORMED Incision and drainage left forearm abscess with aerobic and anaerobic cultures of gross purulent drainage, debridement of skin and subcutaneous necrotic tissue down to the muscular fascia as a result of an infiltrated IV. The debridement site was 3 x 1.8 x 1 cm. SURGEON Livan Gimenez M.D. ANESTHESIA General endotracheal. ESTIMATED BLOOD LOSS 10 mL INDICATIONS Mr. Butler is a 41-year-old gentleman who was admitted to the hospital with diabetic ketoacidosis. During his hospitalization, there was infiltration of an IV and he developed a firm, fluctuant abscess with erythema and some central necrosis. PROCEDURE The patient was transported from his hospital room to the operating room and, after appropriate monitoring and positioning, he was given general endotracheal anesthesia using an LMA. The left arm was extended on an operating arm board. The hair was clipped and he was prepped and draped in the usual sterile fashion. The central necrotic portion was opened sharply. Gross purulent drainage could be expressed and aerobic and anaerobic cultures were taken. A wedge excision to include the central necrotic area was then performed over the extent of the palpable abnormality. We dissected down to the soft tissue and debrided necrotic subcutaneous tissue down to the level of the fascia. I irrigated and obtained hemostasis. I then packed the wound with a dressing sponge soaked and rung out with Betadine. Dry dressings followed by Kerlix and Khris wrap were placed. Sponge, instrument and needle counts were correct x3. The patient tolerated the procedure well and was transported to Unit #: [id number] #: [id number] Patient: LACHELLE BUTLER recovery in stable condition. There was no family available at the end of the case. Dictated by... Yamileth Resendiz/ty TD: 12/23/2016 06:58 JOB #: [id number] PROCEDURE OPERATIVE NOTE Page 1 of 1 X Livan Gimenez MD X PROCEDURE OPERATIVE NOTE
--- NOTE | ~2016-12-13 | HP ---
Unit #: [id number] #: [id number] Patient: LACHELLE BUTLER [id number] [facility] [address] [facility]. [place], [place] [address] [id number] MR#: [id number] NAME: LACHELLE BUTLER ROOM: CICCU3 Age: 41 Sex: M Admission Date: 12/13/2016 : 1975 Attending Physician: Radha Mckay M.D. Primary Care Physician: Octaviano Webster M.D. HISTORY AND PHYSICAL ADMISSION DIAGNOSES 1. Diabetic ketoacidosis. 2. Abdominal pain with history of diarrhea. 3. History of diabetes. 4. Dyslipidemia. 5. Depression, anxiety. 6. Peripheral neuropathy. 7. History of chronic obstructive pulmonary disease. HISTORY OF PRESENT ILLNESS Mr. Butler is a 41-year-old gentleman who apparently was seen by Dr. Watkins recently secondary to diarrhea. He had the CT of the abdomen done recently and was in the process of working this diarrhea issue up as an outpatient by Dr. Watkins when yesterday he went to the outlying ER with the complaints of abdominal pain, nausea and vomiting. He was found in DKA with blood sugar of 380 and bicarb of 11. He was started on IV insulin per DKA protocol and transferred to us at [facility] ICU. He currently off of the DKA protocol IV insulin, status post evaluation per Dr. Henao. He is tolerating p.o. well. He denies any other problems. Denies fever or chills. Denies any chest pain, shortness of air, dyspnea, headache or dizziness. He denies any syncope or presyncope. REVIEW OF SYSTEMS Twelve-point review of systems on this patient is basically negative except as above. PAST MEDICAL HISTORY Significant for: 1. History of diabetes. 2. Dyslipidemia. 3. Peripheral neuropathy. 4. History of depression and anxiety. 5. Posttraumatic stress disorder. 6. COPD. PAST SURGICAL HISTORY Significant for: 1. EGD and colonoscopies in the past. 2. History of foot surgery secondary to abscess. 3. History of left shoulder surgery. HOME MEDICATIONS I do not have these in front of me but these will be clarified by the Unit #: [id number] #: [id number] Patient: LACHELLE BUTLER pharmacy and the patient will be restarted accordingly. ALLERGIES Codeine. SOCIAL HISTORY He is an active smoker. Denies any alcohol or illicit drug use. FAMILY HISTORY Significant for diabetes and coronary artery disease. PHYSICAL EXAMINATION VITAL SIGNS: BP 105/75, heart rate 70, respirations 17, temperature 97.7. GENERAL: The patient is a 41-year-old gentleman in no acute distress. HEENT: Head is atraumatic. Pupils equal, round, reactive to light and accommodation. Extraocular muscles are intact. Oropharynx is clear. NECK: Supple. No mass, no JVD, no bruits. LUNGS: Clear to auscultation bilaterally. HEART: S1, S2. No murmurs. ABDOMEN: Soft, nontender, nondistended. LOWER EXTREMITIES: Without any significant cyanosis, clubbing, or edema. NEUROLOGIC: Patient grossly intact, no focal deficits. DIAGNOSTIC STUDIES LABORATORY: Yesterday's blood gases show pH 7.22, pCO2 of 23 and pO2 of 104 with a bicarb of 9.5. Chemistry this morning significant for blood glucose of 149, bicarb 22, sodium 132, potassium 3.2, phosphorus 1.6. Serial cardiac enzymes from yesterday negative. CBC completely unremarkable. IMAGING: Chest x-ray negative. ASSESSMENT AND PLAN 1. Status post DKA, off of the IV insulin. Transition to subcu insulin per Dr. Henao. Move out of the ICU. 2. Continues diarrhea. Will get Dr. Watkins on board. 3. COPD, stable. 4. Continues tobacco use, counseled on the importance of quitting. 5. History of depression, anxiety and posttraumatic stress disorder. Continue home medications. 6. GI and DVT prophylaxis continue on PPI and Lovenox. Dictated by Yamileth Vincent/blessing TD: 12/14/2016 22:01 JOB #: [id number] Unit #: [id number] #: [id number] Patient: LACHELLE BUTLER HISTORY AND PHYSICAL Page 1 of 1 X Saul Pacheco MD X HISTORY AND PHYSICAL
--- NOTE | ~2016-12-13 | DS ---
Unit #: [id number] #: [id number] Patient: LACHELLE VIDES [id number] [address] [place], [place] [address] [id number] I MR#: [id number] NAME: LACHELLE VIDES ROOM: 558 Age: 41 Sex: M Admission Date: 12/13/2016 : 1975 Discharge Date: 12/23/2016 Attending Physician: Radha Mckay M.D. Primary Care Physician: Octaviano Webster M.D. DISCHARGE SUMMARY DISCHARGE DIAGNOSES 1. Status post diabetic ketoacidosis. 2. Clostridium difficile colitis. 3. Left upper extremity abscess, status post incision and drainage. 4. Uncontrolled diabetes. 5. Sinus tachycardia. 6. Depression, anxiety. 7. Anemia of chronic disease. CONSULTANTS 1. Dr. Watkins, gastroenterology 2. Dr. Henao, endocrinology 3. Dr. Taylor, cardiology 4. Dr. Gimenez, [facility] 5. Dr. Trujillo, psychiatry PROCEDURES AND DIAGNOSTIC STUDIES 1. I and D per Dr. Gimenez. 2. Chest x-ray on admission was negative. 3. Small bowel followthrough. Small bowel wall thickening. No evidence of obstruction. 4. CT abdomen and pelvis grossly unremarkable. 5. CT head negative. 6. Rib films negative. 7. Upper extremity ultrasound negative for DVT. 8. CT upper extremity shows superficial venous thrombosis and abscess measuring 13 x 5 mm. 9. Stool for C difficile positive. 10. Blood cultures so far negative. 11. Wound cultures so far negative. HISTORY OF PRESENT ILLNESS Please refer to History and Physical done by me for initial presentation of this gentleman. HOSPITAL COURSE DKA. Patient was admitted to ICU, started on IV insulin per DKA protocol. He was followed by Dr. Henao and was successfully transitioned from IV to subcu insulin regime. Currently stable to be discharged. See discharge medication reconciliation below. Outpatient followup with Dr. Henao. C difficile colitis, status post evaluation per Gastroenterology. Initially was treated with the Flagyl, however, later on due to continuous Unit #: [id number] #: [id number] Patient: LACHELLE VIDES symptoms, patient was also started on vancomycin p.o. Currently making some clinical progress. Continue p.o. Flagyl and p.o. vancomycin for 7 more days. Diabetes, uncontrolled. As above. Left upper extremity abscess, status post evaluation per Surgery. Was treated with IV Zosyn. Status post I and D, stable. Will be discharging on p.o. Augmentin times 7 days. Fall. The patient took a fall in the restroom. Status post negative rib films, status post negative CT of the head. Sinus tachycardia, status post evaluation per Cardiology, stable. Discharge date heart rate was 94. Anemia of chronic disease, stable. Discharge date hemoglobin 10.9, hematocrit 32.4. DISCHARGE MEDICATIONS 1. Tylenol p.r.n. 2. Vancomycin 250 mg/mL one teaspoon q.i.d. for 7 days. 3. Neurontin 800 mg t.i.d. 4. Cymbalta 60 mg h.s. 5. Pravastatin 20 mg daily. 6. Sliding scale insulin. 7. Lantus 25 units subcu h.s. 8. Lantus 10 units subcu q.a.m. 9. NovoLog 3 units subcu t.i.d. with meals. 10. Metronidazole 500 mg p.o. t.i.d. for 7 days. 11. Aspirin 81 mg daily. 12. Lortab 7.5 one or two tablets q.6 h. p.r.n. pain. 13. Protonix 40 mg daily. 14. Zyprexa 10 mg b.i.d. 15. Augmentin 875 mg p.o. b.i.d. for 7 days. FOLLOWUP 1. Patient is to follow up with his primary care physician in one week. 2. Outpatient followup with Gastroenterology, General Surgery, and Endocrinology. Dictated by... Yamileth Vincent/blessing TD: 12/23/2016 20:58 Unit #: [id number] #: [id number] Patient: LACHELLE VIDES JOB #: [id number] DISCHARGE SUMMARY Page 1 of 1 X Saul Pacheco MD X DISCHARGE SUMMARY
--- NOTE | ~2016-12-13 | CT71 ---
[facility] A Service of [facility] RADIOLOGY TEXT RESULTS PATIENT: LACHELLE VIDES LOCATION: [facility] 558-01 : [birth year] UNIT #: [id number] AGE: [address]: Radha Mckay MD SEX: M ORDER DR: [id number] [facility] [address] [facility]. [place], [place] [address] [id number] I MR#: [id number] Acc #: [id number] NAME: LACHELLE VIDES : 1975 SEX: M STUDY DATE/TIME: 12/18/2016 UNIT: [facility] ROOM: [facility] STUDY DESCRIPTION: CT Head Wo Contrast Attending Physician: Radha Mckay M.D. Ordering Physician: Saul Pacheco M.D. Primary Care Physician: Octaviano Webster M.D. MEDICAL IMAGING REPORT This report is preliminary unless electronic signature is present EXAM Head CT 12/18 at 23:07 INDICATIONS Syncopal episode, status post fall 5 hours ago[address] Headache. The CT exam was performed with one or more of the following radiation dose reduction techniques: automatic exposure control, adjustment of mA and/or kV according to patient size, and iterative reconstruction. FINDINGS Axial images were obtained from base to the vertex without contrast. Comparison made with 12/25/2015. Ventricular size and configuration are normal. There is no acute infarct or hemorrhage. There are no masses. There are no skull fractures. IMPRESSION Negative head CT. Dictated by... Livan Kaye Jr., M.D. THIS IS AN ELECTRONICALLY VERIFIED REPORT Livan Kaye Jr., M.D. at 12/19/2016 5:18 PM WINTERK/sumit TD: 12/19/2016 09:58 JOB #: [id number] [facility] A Service of [facility] RADIOLOGY TEXT RESULTS PATIENT: LACHELLE VIDES LOCATION: [facility] 558-01 : [birth year] UNIT #: [id number] AGE: [address]: Radha Mckay MD SEX: M ORDER DR: MEDICAL IMAGING REPORT Page 1 of 1 COPY
--- NOTE | ~2016-12-13 | CO ---
Unit #: [id number] #: [id number] Patient: LACHELLE BUTLER [id number] [address] [place], [place] [address] [id number] I MR#: [id number] NAME: LACHELLE BUTLER ROOM: 558 Age: 41 Sex: M Admission Date: 12/13/2016 : 1975 Attending Physician: Radha Mckay M.D. Primary Care Physician: Octaviano Webster M.D. Consultation Date: 12/15/2016 CONSULTATION REPORT REASON FOR CONSULTATION Abdominal pain, diarrhea. HISTORY OF PRESENTING ILLNESS Mr. Butler is a 41-year-old gentleman known to me from recent workup. He was admitted with DKA and was found to be having significant lower abdominal pain. He says he has been having diarrhea for the last one month which is mostly watery stool with no blood. He has a history of C. diff. colitis last year where he was treated effectively. He has no fever, no chills. He has no nausea, vomiting or hematemesis. There is no blood in the stool. PAST MEDICAL HISTORY Diabetes mellitus with recurrent ketoacidosis, history of depression, history of COPD. REVIEW OF SYSTEMS A complete 10-point review of systems is done which is unremarkable other than as mentioned above. SOCIAL HISTORY Smoker. The patient denies alcohol or drug abuse. FAMILY HISTORY No history of colon cancer in the family. PHYSICAL EXAMINATION VITAL SIGNS: Stable. Afebrile. Blood pressure 105/75. Heart rate 70. Respiration 17. Temperature 98. HEENT: Pupils equal and reactive. Sclerae anicteric. Oral mucosa moist. NECK: No JVD. No lymphadenopathy. CHEST: Clear to auscultation. A few scattered rhonchi. CARDIOVASCULAR: Regular rate and rhythm. No murmurs. ABDOMEN: Significantly tender both lower quadrants. No guarding or rebound. EXTREMITIES: Without clubbing, cyanosis or edema. NEUROLOGIC: Intact. SKIN: Warm and dry. DIAGNOSTIC STUDIES LABORATORY: Stool studies were ordered but not done. CBC is normal. Chemistry is largely normal but for alkaline phosphatase of 102 and sugar being high. Unit #: [id number] #: [id number] Patient: LACHELLE BUTLER IMAGING: CT scan shows possible small bowel wall thickening, question of enteritis, prominent right inguinal node. ASSESSMENT AND PLAN 1. Patient with recurrent diarrhea, most likely recurrent C. diff. colitis. We will collect a stool sample and start her on Flagyl for now. Recent colonoscopy was reviewed. Given the findings of small bowel wall thickening, which has been persistent over the last six weeks or so, (1) two sequential CT scans, I will get a small bowel follow through to look for small bowel pathology further. 2. Diabetes mellitus and DKA, improving. 3. We will also start on Colestid for symptomatic control. Thank you, Dr. Pacheco, for this interesting consult. We will follow along. Dictated by... Micah Watkins M.D. DAHLIA/tana TD: 12/15/2016 09:32 JOB #: [id number] CONSULTATION REPORT Page 1 of 1 X Micah Watkins MD X CONSULTATION REPORT
--- NOTE | ~2016-12-13 | EKG ---
PATIENT: LACHELLE VIDES UNIT #: [id number] Ventricular Rate: 126 BPM Atrial Rate: 126 BPM P-R Interval: 166 ms QRS Duration: 88 ms Q-T Interval: 306 ms QTC Calculation(Bezet): 443 ms P [place]: 68 degrees Calculated R [place]: 30 degrees Calculated T [place]: 60 degrees Diagnosis Line: Sinus tachycardia Diagnosis Line: Otherwise normal ECG Diagnosis Line: When compared with ECG of 13-DEC-2016 18:25, Diagnosis Line: No significant change was found Diagnosis Line: Confirmed by ARTURO JONES MD ([id number]) on Diagnosis Line: 12/19/2016 10:58:12 PM INTERPRETING : ARACELIS
--- NOTE | ~2016-12-13 | FU ---
[facility] Nutrition Therapy DATE: 12/19/16 Patient: LACHELLE PELAYOKACYGURJIT Physician: EKATERINA Address: [address] [place] [address] DRIVE Room/Bed: [address] [place] [address], Zip: [place] [address] Admit Date: 12/13/16 Date of : [birth year] Height: 6 0 Weight: 138 63 NUTRITION MONITORING/FOLLOW-UP: Reason: Nutrition follow-up Admitting Dx: 41 y/o male admitted with DKA Anthropometrics: Ht: 74", admission wt: 59.1 kg, current wt: 63 kg, BMI: 17.8 (underweight), weight trending upward Labs: Na 134, Glucose 275, POC 158-431, A1C 15.4 (12/13) Meds: Zofran prn, Novolog (low SSI + 5 units), Levemir, PPI, Abx, NSIV @ 100 ml/hr GI: Last BM 12/18 (diarrhea, + C. diff), denies N/V Skin: No change since admission assessment, no edema Assessment: Chart reviewed, events noted. RD previously provided CC diet education at admission assessment on 12/14/16. Patient is tolerating a 60g carb/meal diet with Glucerna shakes TID. Reports missed breakfast this morning due to overnight fever and AM ultrasound, however is otherwise eating well at 3 meals per day and drinking all of Glucerna shakes 3 times per day- weight is trending up as desired. Patient has hx of being very non-compliance with insulin and diet, but he reports no further dietary questions/concerns at this time. He is missing some teeth and therefore requires soft foods, however he does not wish to have a mechanical soft restriction- chooses foods off the menu accoring to what he knows he can properly chew. See nutrition goals, dx and recs as stated below. Dx: 1) Inadequate protein-energy intake r/t clinical condition AEB NPO status - RESOLVED 2) Underweight r/t dx, PMH AEB BMI 17.8, 73% IBW - ACTIVE 3) Impaired glycemic control r/t insulin and dietary non-compliance AEB glucose POC 158-431, A1C 15.4 - ACTIVE Intervention: Optimize insulin regimen Monitoring, Evaluation and Goals: 1. PO intake > 75% of meals and supplements - MET 2. Promote gradual weight gain - IN PROGRESS, WEIGHT TRENDING UP 3. Glucose WNL - NOT MET 4. Prevent skin breakdown - IN PROGRESS New nutrition goals: [facility] Nutrition Therapy DATE: 12/19/16 Patient: LACHELLE PELAYOKACYGURJIT Physician: EKATERINA Address: [address] Room/Bed: [address] [place] [address], Zip: [place] [address] Admit Date: 12/13/16 Date of : [birth year] Height: 6 0 Weight: 138 63 1. PO intake > 75% of meals and supplements. 2. Promote gradual weight gain towards a healthy BMI range. 3. Improvement in blood glucose (< 200 mg/dL) 4. Prevent skin breakdown. Monitor: Per protocol, criteria to determine if above goals met Recommendations: 1. Continue 60g carb/meal diet and Glucerna shakes TID to promote gradual weight gain. Patient requires soft foods due to missing teeth, however he monitors this himself and chooses appropriate foods on the menu. 2. Optimize insulin regimen to promote adequate blood glucose control noting continued hyperglycemia. Consider changing SSI to medium or high correction scale. Encourage insulin compliance upon discharge. 3. RD previously educated on diabetic diet- encourage compliance upon discharge. 4. Continue to weigh q 3 days for monitoring purposes, as the patient is underweight. Status: Mild nutrition risk Respectfully, Candelaria Craig, RD, LD [facility] cc: client file
--- NOTE | ~2016-12-13 | CO ---
Unit #: [id number] #: [id number] Patient: LACHELLE VIDES [id number] [facility] [address] [facility]. [place], [place] [address] [id number] I MR#: [id number] NAME: LACHELLE VIDES ROOM: 558 Age: 41 Sex: M Admission Date: 12/13/2016 : 1975 Attending Physician: Radha Mckay M.D. Primary Care Physician: Octaviano Webster M.D. CONSULTATION REPORT REASON FOR CONSULTATION Followup. DISCUSSION Mr. Burns is a 41-year-old white male seen in room 558 bed-1 on 12/20/16 at [facility]. Patient and the family were at the bedside. Patient's mom reported that he is doing much better, sleeping good, medication is helping him. Denied any problem with anger, temper, making progress, tolerating medication well, sleeping good. REVIEW OF SYSTEMS The patient is currently on Zyprexa/Cymbalta combination. Denies any hallucinations. Complete review of systems unremarkable. MENTAL STATUS EXAMINATION VITAL SIGNS: 98.6, 96, 80, 116/83. Oxygen saturation 100%. GENERAL APPEARANCE: Patient dressed in hospital attire, lying comfortably in bed. Attention span and concentration fair. Speech - regular rate, somewhat rapid, pressured. Oriented in time, place and person. Mood and affect labile. Thought process - coherent. Thought content - patient denied any thoughts of harming self or others or any psychotic symptoms. Recent and remote memory - fair. Language - intact. Fund of knowledge - fair. Insight and judgment - fair to slightly impaired. DIAGNOSIS PSYCHIATRIC: Bipolar mood disorder, not otherwise specified - F31.89 ASSESSMENT/PLAN 1. Supportive psychotherapy and psychoeducation provided to patient. 2. Educated about benefits and side effects of medications and course and prognosis of illness. If needed, consider further additional medication. Please feel free to call if any questions. Telephone number [phone]. Dictated by... Aiden Trujillo M.D. OMAR/ty TD: 12/21/2016 08:42 JOB #: [id number] Unit #: [id number] #: [id number] Patient: LACHELLE VIDES CONSULTATION REPORT Page 1 of 1 X Aiden Trujillo MD CONSULTATION REPORT
--- NOTE | ~2016-12-13 | CO ---
Unit #: [id number] #: [id number] Patient: LACHELLE BUTLER [id number] [facility] [address] [facility]. [place], [place] [address] [id number] I MR#: [id number] NAME: LACHELLE BUTLER ROOM: 558 Age: 41 Sex: M Admission Date: 12/13/2016 : 1975 Attending Physician: Radha Mckay M.D. Primary Care Physician: Octaviano Webster M.D. Consultation Date: 12/15/2016 CONSULTATION REPORT REASON FOR CONSULTATION Depression, mood swings. HISTORY OF PRESENT ILLNESS Mr. Lachelle Butler is a 41-year-old white male, seen in room 558, bed 1, on 12/15/16 at [facility] with the above-mentioned complaint. The patient was admitted with DKA. Patient's mom reported that his blood sugar was over 300. The patient's mom was at the bedside and gave history. Reported that he has never been treated. History of bipolar mood disorder for a long time. Noncompliant with medication. Poor insight. Poor judgment. Patient was recently admitted to [facility] in November of 2016 with diabetic ketoacidosis. At that time patient was on Cymbalta 60 mg daily. Patient's mom is concerned, patient having a lot of problems with mood lability, mood swings, getting mad, angry, upset, agitated. Patient denied any suicidal or homicidal ideation at this time. Denied any auditory or visual hallucinations but somewhat guarded. Patient's vital signs - 97.4, 88, 19, 115/81, oxygen saturation 100%. Patient denied any use of any drugs or alcohol. PAST PSYCHIATRIC HISTORY Unremarkable for any history of treatment except in the past with Cymbalta for depression. No history of any suicide attempt. MEDICAL HISTORY Remarkable for history of diabetic ketoacidosis, abdominal pain with history of diarrhea, history of diabetes, dyslipidemia, depression and anxiety, peripheral neuropathy, history of COPD. MEDICATION HISTORY Patient is on metronidazole, NovoLog, Lipitor, Protonix, Neurontin, Cymbalta. FAMILY HISTORY/SOCIAL HISTORY Patient has good support system from mother. No history of abuse. No history of any substance abuse. REVIEW OF SYSTEMS A complete review of systems is unremarkable except as mentioned above. MENTAL STATUS EXAMINATION Vital signs - Please see above. General appearance - Patient is thinly built, dressed casually in hospital attire. Attention span, concentration - Fair. Speech - Rapid in rate. Oriented to time, place and person. Mood and affect - Labile. Thought process - Circumstantial. Thought content - Unit #: [id number] #: [id number] Patient: LACHELLE BUTLER The patient denied any thoughts of harming self or others or any psychotic symptoms but guarded. Mood lability. Recent and remote memory - Poor. Language - Intact. Fund of knowledge - Fair to slightly impaired. Insight and judgment - Fair to slightly impaired. DIAGNOSIS 1. PSYCHIATRIC: Bipolar mood disorder, NOS, F31.89. 2. SECONDARY DIAGNOSIS: Deferred 3. MEDICAL DIAGNOSIS: Please refer to H and P. 4. STRESSOR: Psychosocial stressors. ASSESSMENT AND PLAN 1. Supportive psychotherapy and psychoeducation provided to the patient and family. 2. Educated about benefits and side effects of medication and course and prognosis of illness. 3. Advised to continue with current medications with plan to add Zyprexa 10 mg twice daily for mood stabilization. We will closely follow as needed. Consider further adjustment of medication. Please feel free to call with any questions, telephone number . Dictated by... Aiden Trujillo M.D. OMAR/dhiraj TD: 12/16/2016 10:47 JOB #: [id number] CONSULTATION REPORT Page 1 of 1 X Aiden Trujillo MD CONSULTATION REPORT
--- NOTE | ~2016-12-13 | CR72 ---
[facility] A Service of [facility] RADIOLOGY TEXT RESULTS PATIENT: LACHELLE VIDES LOCATION: [facility] [address]-68 : [birth year] UNIT #: [id number] AGE: [address]: Radha Mckay MD SEX: M ORDER DR: [id number] [facility] [address] [facility]. [place], [place] [address] [id number] I MR#: [id number] Acc #: [id number] NAME: LACHELLE VIDES : 1975 SEX: M STUDY DATE/TIME: 12/13/2016 20:38 UNIT: [facility] ROOM: 80437 STUDY DESCRIPTION: CR Chest Single View Portable Attending Physician: Radha Mckay M.D. Ordering Physician: Radha Mckay M.D. Primary Care Physician: Octaviano Webster M.D. MEDICAL IMAGING REPORT This report is preliminary unless electronic signature is present EXAM Portable chest HISTORY Shortness of air and weakness today. FINDINGS The cardiac size and pulmonary vascularity are normal. No infiltrates or effusions. The lungs are clear. IMPRESSION Negative. Dictated by... Chuck Anne M.D. THIS IS AN ELECTRONICALLY VERIFIED REPORT Chuck Anne M.D. at 12/13/2016 11:18 PM DFL/psc TD: 12/13/2016 22:53 JOB #: [id number] MEDICAL IMAGING REPORT Page 1 of 1 COPY
--- NOTE | ~2016-12-13 | US140 ---
[facility] A Service of [facility] RADIOLOGY TEXT RESULTS PATIENT: LACHELLE VIDES LOCATION: [facility] 55- : [birth year] UNIT #: [id number] AGE: [address]: Radha Mckay MD SEX: M ORDER DR: [id number] [facility] [address] [place], [place] [address] [id number] I MR#: [id number] Acc #: [id number] NAME: LACHELLE VIDES : 1975 SEX: M STUDY DATE/TIME: 12/20/2016 18:24 UNIT: [facility] ROOM: [facility] STUDY DESCRIPTION: US UE Veins Unilat or Ltd Stdy Attending Physician: Radha Mckay M.D. Ordering Physician: Saul Pacheco M.D. Primary Care Physician: Octaviano Webster M.D. MEDICAL IMAGING REPORT This report is preliminary unless electronic signature is present EXAM Color Doppler ultrasound examination of the left upper extremity. HISTORY Left upper extremity pain and swelling for the past day. TECHNIQUE Ultrasound evaluation of the left upper extremity was performed with acosta-scale, color-flow and Doppler spectral waveform analysis. FINDINGS The veins of the left upper extremity are all patent. There is good compressibility and good augmentation to flow with distal compression. Doppler waveform pattern is normal. IMPRESSION Normal examination. Dictated by... Livan Solares M.D. THIS IS AN ELECTRONICALLY VERIFIED REPORT Livan Solares M.D. at 12/20/2016 10:18 PM DINO/uriah TD: 12/20/2016 20:04 JOB #: [id number] MEDICAL IMAGING REPORT Page 1 of 1 COPY
--- NOTE | ~2016-12-13 | CO ---
Unit #: [id number] #: [id number] Patient: LACHELLE VIDES [id number] [address] [place], [place] [address] [id number] I MR#: [id number] NAME: LACHELLE VIDES ROOM: 558 Age: 41 Sex: M Admission Date: 12/13/2016 : 1975 Attending Physician: Radha Mckay M.D. Primary Care Physician: Octaviano Webster M.D. Consultation Date: 12/17/2016 CONSULTATION REPORT REASON FOR CONSULTATION Followup. DISCUSSION Mr. Burns is a 41-year-old male, seen in room 558, bed 1 on 12/17/2016. The patient's sister was in the room. The patient was pleasant and cooperative during interview. Compliant with medication. The patient reports that he is feeling better. Medication is helping him. The patient denied any side effects from medication. Started on Zyprexa recently. Able to sleep good. No agitation. Denied any thoughts of harming self or others, or any psychotic symptom. The patient's vital signs; temperature 97.7, pulse 103, respirations 18, blood pressure 187/53, oxygen saturation 100%. MENTAL STATUS EXAMINATION General appearance; the patient dressed casually in hospital attire, lying comfortably in bed. Attention span and concentration, fair. Speech; regular rate and coherent. Oriented in time, place, and person. Mood and affect were labile. Thought process, coherent. Thought content; the patient denied any thoughts of harming self or others, or any hallucination. Recent and remote memory, fair. Language, intact. Fund of knowledge, fair. Insight and judgment, fair to slightly impaired. DIAGNOSES Psychiatric: Bipolar mood disorder, not otherwise specified, F31.89. ASSESSMENT AND PLAN 1. Supportive psychotherapy and psychoeducation provided to the patient. 2. Educated about benefits and side effects of medication and course and prognosis of illness. 3. Advised to continue with current combination of medication. We will continue to follow. If needed, consider further adjustment of medication. Please feel free to call if any questions, telephone #[phone]. Dictated by... Aiden Trujillo M.D. OMAR/bernardo TD: 12/17/2016 23:11 JOB #: [id number] Unit #: [id number] #: [id number] Patient: LACHELLE VIDES CONSULTATION REPORT Page 1 of 1 X Aiden Trujillo MD CONSULTATION REPORT
--- NOTE | ~2016-12-13 | CR211 ---
[facility] A Service of [facility] & [facility] RADIOLOGY TEXT RESULTS PATIENT: LACHELLE VIDES LOCATION: [facility] : [birth year] UNIT #: [id number] AGE: [address]: Radha Mckay MD SEX: M ORDER DR: [id number] [facility] [address] [facility]. [place], [place] [address] [id number] MR#: [id number] Acc #: [id number] NAME: LACHELLE VIDES : 1975 SEX: M STUDY DATE/TIME: 12/18/2016 17:52 UNIT: [facility] ROOM: [facility] STUDY DESCRIPTION: CR Ribs Uni 2 View W PA Ch Rt Attending Physician: Radha Mckay M.D. Ordering Physician: Saul Pacheco M.D. Primary Care Physician: Octaviano Webster M.D. MEDICAL IMAGING REPORT This report is preliminary unless electronic signature is present EXAM Right ribs 4 views HISTORY Right rib pain today. Fell and hit right side today. FINDINGS 4 views of the right ribs are negative. No fracture, pneumothorax or pulmonary infiltrate or effusion. IMPRESSION Negative right ribs. Dictated by... Chuck Anne M.D. THIS IS AN ELECTRONICALLY VERIFIED REPORT Chuck Anne M.D. at 12/19/2016 12:57 PM VEE/ying TD: 12/19/2016 08:43 JOB #: [id number] MEDICAL IMAGING REPORT Page 1 of 1 COPY
--- NOTE | ~2016-12-13 | CO ---
Unit #: [id number] #: [id number] Patient: LACHELLE VIDES [id number] [facility] [address] [facility]. [place], [place] [address] [id number] I MR#: [id number] NAME: LACHELLE VIDES ROOM: 558 Age: 41 Sex: M Admission Date: 12/13/2016 : 1975 Attending Physician: Radha Mckay M.D. Primary Care Physician: Octaviano Webster M.D. Consultation Date: 12/16/2016 CONSULTATION REPORT REASON FOR CONSULTATION Followup. DISCUSSION Mr. Burns is a 41-year-old male, seen in room 558, bed 1 on 12/16/2016 at [facility]. The patient lying comfortably in bed, dressed in hospital attire. The patient reports able to sleep good, but was very upset about his home situation that his son's daughter keeps disturbed in home and his son would not do anything. The patient was somewhat mad, angry, upset. The patient having problem with anger, temper, mood lability, therefore started Zyprexa. No side effects from medication. The patient currently having problem with mood lability and irritability, but denied any suicidal or homicidal ideation. Denied any psychotic symptom. No side effects from medication. The patient's vital signs; temperature 97.6, pulse 108, respirations 18, blood pressure 109/91, oxygen saturations 100%. The patient is currently on Cymbalta 60 mg daily and Zyprexa 10 mg b.i.d. REVIEW OF SYSTEMS Complete review of systems is unremarkable except as mentioned above. MENTAL STATUS EXAMINATION Vital signs; please see above. General appearance, the patient is thin built, casually dressed, lying comfortably in bed in a propped up position. Attention span and concentration, fair. Speech, rapid in rate and somewhat pressured. Oriented in time, place, and person. Mood and affect, labile. Thought process, circumstantial. Thought content, guarded, but denied any suicidal or homicidal ideation. Denied any auditory or visual hallucination, but somewhat paranoid. Recent and remote memory, fair. Language, intact. Fund of knowledge, fair. Insight and judgment, fair to slightly impaired. DIAGNOSES Psychiatric: Bipolar mood disorder, not otherwise specified, F31.89. ASSESSMENT AND PLAN 1. Supportive psychotherapy and psychoeducation provided to the patient. 2. Educated about benefits and side effects of medication and course and prognosis of illness. 3. Continue with current medication. If needed, consider further adjustment of medication. Please feel free to call if any question telephone #[phone]. Unit #: [id number] #: [id number] Patient: LACHELLE VIDES Dictated by... Yamileth Ponce/bernardo TD: 12/18/2016 00:28 JOB #: [id number] CONSULTATION REPORT Page 1 of 1 X Aiden Trujillo MD X CONSULTATION REPORT
--- NOTE | ~2016-12-13 | CO ---
Unit #: [id number] #: [id number] Patient: LACHELLE VIDES [id number] [facility] [address] [facility]. [place], [place] [address] [id number] I MR#: [id number] NAME: LACHELLE VIDES ROOM: 558 Age: 41 Sex: M Admission Date: 12/13/2016 : 1975 Attending Physician: Radha Mckay M.D. Primary Care Physician: Octaviano Webster M.D. Consultation Date: 12/19/2016 CONSULTATION REPORT REASON FOR CONSULTATION Followup. DISCUSSION Mr. Burns is a 41-year-old male seen in room 558 bed-1 on 12/19/16 at [facility]. Patient is pleasant and cooperative, tolerating medication fairly well. Patient reports feeling better, decrease in anxiety and agitation, sleeping good. Patient denied any thoughts of harming self or others, denied any psychotic symptoms and decrease in anger, temper, mood, lability. Patient sleeping better. REVIEW OF SYSTEMS Complete review of systems unremarkable. MENTAL STATUS EXAMINATION VITAL SIGNS: 99.4, 102, 16, 101/65. Oxygen saturation 98%. GENERAL APPEARANCE: Patient dressed casually, lying comfortably in bed. Attention span and concentration fair. Speech rapid in rate, somewhat pressured. Oriented in time, place and person. Mood and affect labile. Thought process circumstantial. Thought content - guarded, paranoid but denied any thoughts of harming self or others. Recent and remote memory poor. Insight and judgment poor. DIAGNOSIS PSYCHIATRIC: Bipolar mood disorder, not otherwise specified - F31.89 ASSESSMENT/PLAN 1. Supportive psychotherapy and psychoeducation provided to patient. 2. Educated about benefits and side effects of medications and course and prognosis of illness. 3. If needed, consider further additional medication. Please feel free to call if any questions. Telephone number [phone]. Dictated by... Aiden Trujillo M.D. OMAR/ty TD: 12/21/2016 05:43 JOB #: [id number] Unit #: [id number] #: [id number] Patient: LACHELLE VIDES CONSULTATION REPORT Page 1 of 1 X Aiden Trujillo MD CONSULTATION REPORT
--- NOTE | ~2016-12-13 | A ---
[facility] Nutrition Therapy DATE: 12/14/16 Patient: LACHELLE PELAYOKACYGURJIT Physician: EKATERINA Address: [address] [place] [address] DRIVE Room/Bed: [address], Zip: [place] [address] Admit Date: 12/13/16 Date of : [birth year] Height: 6 0 Weight: 130 59 NUTRITIONAL ASSESSMENT: REASON: Dx and low BMI 41 yo male admitted for DKA PMH: T2DM, HLD, depression, PTSD, peripheral neuropathy, COPD Anthropometrics: Ht: 6'2" Wt: 59.1 kg (130#) BMI: 16.7 IBW: 190#, 68% IBW Labs: Na+ 130, K+ 3.2, Gluc 285, Ca++ 7.9, Phos 1.6, POC 132, HgbA1C 15.4 Meds: Lipitor, Protonix, Mg, K, Zofran, D5%, Novolin I/O & Bowel function: 828/550, last BM 12/13 Skin Integrity: Excoriation/redness (bottom/ra area), scar (L plantar foot), scarbs/sores (scattered), no edema notes Estimated Nutrition Needs: Increased d/t low BMI Assessment: Chart reviewed, events noted. Pt is currenly NPO. Pt is on insulin drip d/t DKA protocol. RD machine learning intern provided written and verbal diabetic diet education. Pt stated he had received diabetic diet education in the past. Pt reported living with mother, whom does the majority of the cooking. Pt reported eating soft foods d/t missing teeth. Pt reported no recent weight loss. Pt reported eating consistently throughout the day and consuming Glucerna shakes at home. RD machine learning intern encouraged adding more protein, fruits, and vegetables into diet. RD machine learning intern discussed importance of portion sizes. Pt verbalized understanding. Pt had no diet questions at this time. See recommendations below. Dx: Inadequate protein-energy intake RT clinical condition AEB NPO status. -Underweight RT dx, PMH AEB BMI 16.7, 68% IBW. -Impaired Glycemic control RT PMH, DX AEB elevated blood sugars, A1C of 15.4. Intervention: 1. NPO 2. Glucerna shakes TID Monitoring, Evaluation and Goals: 1. PO intake; consume >75% of meals and supplements 2. Weight; promote gradual weight gain towards healthy BMI [facility] Nutrition Therapy DATE: 12/14/16 Patient: LACHELLE ALTAMIRANO PEEWEE Physician: EKATERINA Address: [address] Room/Bed: [address], Zip: [place] [id number] Admit Date: 12/13/16 Date of : [birth year] Height: 6 0 Weight: 130 59 3. Labs; WNL; glucose 4. Skin; prevent skin breakdown Recommendations: 1. Once medically feasible, advance diet as tolerated to CC + dental soft diet. 2. Once diet advances, please order Glucerna shakes TID w/ meals. 3. Appreciate family and staff to encourage adequate protein and calorie intake, once diet advances. 4. Consult RD if further diet education is needed/requested. Pt is at a moderate nutritional risk. RD will f/u per protocol. Respectfully, Heather Bloom, Hand Carver Enrique Torrez MS, RD, LD [employer] cc: client file
--- NOTE | ~2016-12-13 | CO ---
Unit #: [id number] #: [id number] Patient: LACHELLE BUTLER [id number] [address] [place], [place] [address] [id number] MR#: [id number] NAME: LACHELLE BUTLER ROOM: 558 Age: 41 Sex: M Admission Date: 12/13/2016 : 1975 Attending Physician: Radha Mckay M.D. Primary Care Physician: Octaviano Webster M.D. Consultation Date: 12/19/2016 CONSULTATION REPORT REASON FOR CONSULTATION Tachycardia. HISTORY OF PRESENT ILLNESS This is a 41-year-old white male with history of type 1 diabetes mellitus with recurrent DKA and chronic diarrhea and now been diagnosed with Clostridium difficile colitis, and also has history of nicotine abuse, marijuana use, reformed alcohol abuse, and COPD, who has been treated and has resolved DKA. He is now complaining of lower abdominal discomfort and as mentioned he has tested positive for Clostridium difficile. The patient did have an elevated temperature last evening at 103. His telemetry has been running 80s to 130s, it is noted that his heart rate did elevate with fever. The patient does have problems with hypotension. He said he always had a low blood pressure. He states that he has in the past had some chest pain. He says it was usually right anterior chest wall without any radiation. He says he does not have any palpitations. He does get a little lightheaded and dizzy. Actually, he had a near syncopal episode yesterday. In the bathroom, he gotten up and he got very weak and dizzy and he fell off and he thought he passed out, but the staff reported that he was still conversing but his CT of his head and chest x-ray to evaluate for any rib cage pain is pending. His EKG this morning shows sinus tachycardia, heart rate 126 beats per minute. His telemetry shows sinus rhythm, heart rate 94. The patient had a stress test back in 2004 that was negative. Since that time, he has not had a aboriginal liaison officer and never been told he has had any heart trouble and never been told he has had a stroke. Cardiology consult to assist with evaluation and management. PAST MEDICAL HISTORY 1. Type 1 diabetes mellitus. 2. History of recurrent diabetic ketoacidosis. 3. Chronic diarrhea, history of Clostridium difficile last year. 4. Peripheral neuropathy. 5. Depression, ADHD. 6. Posttraumatic stress disorder. 7. COPD. 8. Nicotine abuse, marijuana use, and reformed alcohol abuse. 9. In 2004, he had a Myoview stress test, no ischemia, EF was 54%. PAST SURGICAL HISTORY 1. Left foot for a poor healing wound, had I and D. 2. Left shoulder surgery. Unit #: [id number] #: [id number] Patient: LACHELLE BUTLER HOME MEDICATIONS Neurontin 800 mg p.o. t.i.d., Cymbalta 60 mg p.o. daily at h.s., aspirin 81 mg p.o. daily, Protonix 40 mg p.o. daily, pravastatin 20 mg p.o. daily, Lantus 30 units subcu b.i.d., Humalog sliding scale before meals and at bedtime, acetaminophen 650 mg every 4 hours p.r.n., NovoLog 6 units subcu t.i.d. with meals. ALLERGIES 1. Codeine. 2. Levofloxacin. 3. Hydromorphone from Dilaudid. SOCIAL HISTORY The patient has EGD and colonoscopies in the past and he continues to smoke at least a half a pack of cigarettes a day. He has been smoking most of his adult life. He quit drinking heavy alcohol 4 years ago, but he was a heavy drinker. He smokes marijuana. Denies any other illicit drug abuse. FAMILY HISTORY His mother is living and doing well. He does not know anything about his father and he is the only child. REVIEW OF SYSTEMS See details in HPI. PHYSICAL EXAMINATION GENERAL: Mr. Butler is a 41-year-old white male, in no acute respiratory distress. He is awake, alert, and oriented. VITAL SIGNS: Blood pressure is 110/72, heart rate is 94, respirations 18, temperature is 99.6 and at 3:50 a.m. this morning his temperature was 103.0, his O2 saturations 97% on room air. NECK: Trachea midline. No thyromegaly or lymphadenopathy. Have conducted heart sounds. No jugular venous distention. HEART: S1, S2. Regular rate and rhythm. No clicks, murmurs, or rubs. LUNGS: Very diminished. ABDOMEN: Positive bowel sounds present. Tender with palpating. EXTREMITIES: Pedal pulses are palpable. No pedal edema. DIAGNOSTIC STUDIES LABORATORY RESULTS: On admission ABGs; pH is 7.220, pCO2 23.2, PO2 104.0, HCO3 was 9.5, O2 saturation was 96.6. Glucose is 275, BUN 15, creatinine 0.5, eGFR is 132, sodium 134, potassium 3.7, chloride 99, CO2 of 26, calcium is 8.6, phosphorus is 3.8, magnesium is 2.1, total protein 6.1, albumin 3.8, bilirubin total 0.3, AST 21, ALT 16, alkaline phosphatase is 62. C-reactive protein is 0.6. TSH is 0.21. Initial cardiac enzymes; CK-MB is 1.7, troponin less than 0.05. WBCs 7.3, hemoglobin 11.5, hematocrit 34.4, and platelets is 210. Urine tox screen is pending. Blood cultures preliminary report are negative. Stool positive for Clostridium difficile. IMAGING STUDIES: X-ray of right ribs; negative, no fractures. CT of abdomen and pelvis without contrast showed his stomach is somewhat distended, it contains residual oral contrast material from prior small-bowel follow-through, gallbladder is contracted, liver unremarkable, no free fluid or adenopathy and no evidence of any bowel obstruction, and Unit #: [id number] #: [id number] Patient: LACHELLE BUTLER some inguinal nodules noted. Small-bowel follow-through shows nonspecific finding could represent enteritis, no evidence for obstruction. Chest x-ray shows lungs are clear. CARDIOVASCULAR STUDIES: EKG shows sinus tachycardia with ventricular rate 126 beats per minute, Q waves noted in V1, poor R-wave progression, left atrial abnormality, low voltage in inferior leads. IMPRESSION 1. Some atypical chest pain. 2. Poorly controlled diabetes mellitus type 1. 3. Diabetic ketoacidosis, which has resolved. 4. Abdominal pain. 5. Fever, questionable etiology, questionable colitis. 6. Abnormal TSH is 0.21 indicating hyperthyroidism. 7. Clostridium difficile colitis. 8. Hypotension and near syncope. 9. Tachycardia. 10. Peripheral neuropathy. 11. Depression and attention deficit hyperactivity disorder. 12. Posttraumatic stress syndrome. 13. Chronic obstructive pulmonary disease. 14. Nicotine abuse. 15. Marijuana use. 16. Reformed alcohol abuse. 17. Last Myoview stress test was in 2004 that was normal with an ejection fraction of 54%. PLAN 1. Cardiology consult to assist with evaluation and management. 2. Cardiology consult is to evaluate the patient's sinus tachycardia. 3. Likely it is associated with his fever. He had a fever 103 last night. His heart rate was in the 120s to 130s. Now, he is afebrile and his heart rate down to 90s. However, with his multiple risk factors being a type 1 diabetic and smoker, he would need some kind of ischemic heart disease workup when his Clostridium difficile has resolved. On exam, there are no signs or symptoms of acute congestive heart failure. He does complain of having occasional chest pain, but it sounds somewhat atypical. 4. We will obtain a fasting lipid profile and evaluate. Obtain a 2D echo to evaluate his LV function and valves. He does have a history of reformed alcoholism. 5. Encourage the patient to completely quit smoking. 6. Not able to add on any type of beta-sammi because of his problems with some hypotension at times and that is likely secondary to some dehydration and his diabetes. 7. Further recommendation is pending per Dr. Larkin. 8. Dr. Henao will address his abnormal TSH. His DKA is resolved and Dr. Henao is managing his diabetes. Thank you very much for allowing us to assist in his care. Dictated by... Shaneka Rob/bernardo Unit #: [id number] #: [id number] Patient: LACHELLE BUTLER TD: 12/20/2016 03:52 JOB #: [id number] CC: Bita Henao M.D. CONSULTATION REPORT Page 1 of 1 X Juliana Stinson APRN CONSULTATION REPORT
--- NOTE | ~2016-12-13 | CR236 ---
[facility] A Service [facility] RADIOLOGY TEXT RESULTS PATIENT: LACHELLE VIDES LOCATION: [facility] 558-01 : [birth year] UNIT #: [id number] AGE: [address]: Radha Mckay MD SEX: M ORDER DR: [id number] [place] [id number] [facility]. [place], [place] [address] [id number] MR#: [id number] #: [id number] NAME: LACHELLE VIDES : 1975 SEX: M STUDY DATE/TIME: 12/15/2016 12:12 UNIT: [facility] ROOM: [facility] STUDY DESCRIPTION: CR Small Bowel Sbft W Films Attending Physician: Radha Mckay M.D. Ordering Physician: Micah Watkins M.D. Primary Care Physician: Octaviano Webster M.D. MEDICAL IMAGING REPORT This report is preliminary unless electronic signature is present EXAM Small bowel follow through INDICATIONS Right-sided and mid abdominal pain and diarrhea for the past 2 months. TECHNIQUE Patient was administered oral barium. Serial radiographs of the abdomen were obtained. Spot images of the ileocecal region were obtained. Total of 1 fluoroscopic image was obtained. Total fluoro time 0.[address] from 12/09/2016. FINDINGS Rf Design Engineer radiograph shows a non-obstructive bowel gas pattern. Contrast reaches the colon by 1 hour. The small bowel loops are non-dilated. There is fold thickening seen in the mid- to distal small bowel loops, particularly in the right side of the abdomen. On direct palpation, the patient was tender in the right mid- and lower abdomen. The terminal ileum and ileocecal valve were obscured by bowel loops but showed no definite abnormality. IMPRESSION 1. Small bowel wall fold thickening, particularly in the mid- and right lower quadrant of the abdomen. Nonspecific finding, could represent enteritis, as suggested on the recent CT. There is no evidence for obstruction. 2. Contrast reaches the colon by 1 hour. Dictated by... [facility] A Service [facility] RADIOLOGY TEXT RESULTS PATIENT: LACHELLE VIDES LOCATION: [facility] 558-01 : [birth year] UNIT #: [id number] AGE: [address]: Radha Mckay MD SEX: M ORDER DR: Dmitri Paula M.D. THIS IS AN ELECTRONICALLY VERIFIED REPORT Dmitri Paula M.D. at 12/16/2016 7:02 AM EED/catrachito TD: 12/15/2016 22:58 JOB #: [id number] MEDICAL IMAGING REPORT Page 1 of 1 COPY
--- NOTE | ~2016-12-13 | CO ---
Unit #: [id number] #: [id number] Patient: LACHELLE VIDES [id number] [address] [place], [place] [address] [id number] I MR#: [id number] NAME: LACHELLE VIDES ROOM: 558 Age: 41 Sex: M Admission Date: 12/13/2016 : 1975 Attending Physician: Radha Mckay M.D. Primary Care Physician: Octaviano Webster M.D. Consultation Date: 12/21/2016 CONSULTATION REPORT REASON FOR CONSULTATION Followup. DISCUSSION Mr. Burns is a 41-year-old male seen in room 558 bed-1 on 12/21/16. Patient compliant, cooperative. Patient denied any thoughts of harming self or others, reports medication is helping him. He is able to sleep good. Still having problem with mood lability but denied any psychotic symptoms. Patient was cooperative. REVIEW OF SYSTEMS Complete review of systems unremarkable. MENTAL STATUS EXAM VITAL SIGNS: 98.1, 86, 18, 110/80. Oxygen saturation 100%. GENERAL APPEARANCE: Patient dressed in hospital attire, receiving IV fluids. Attention span and concentration fair. Speech - irregular rate, somewhat pressures. Oriented in time, place and person. Mood and affect labile. Thought process circumstantial. Thought content - patient denied any thoughts of harming self or others but mood lability. Denied any hallucinations. Recent and remote memory fair. Language - intact. Fund of knowledge fair. Insight and judgment fair to slightly impaired. DIAGNOSIS PSYCHIATRIC: Bipolar mood disorder, not otherwise specified - F31.89 ASSESSMENT/PLAN Supportive psychotherapy and psychoeducation provided to patient. Educated about benefits and side effects of medication and course and prognosis of illness. Please feel free to call if any questions. Telephone number [phone]. Dictated by... Aiden Trujillo M.D. Rosy TD: 12/22/2016 06:28 JOB #: [id number] Unit #: [id number] #: [id number] Patient: LACHELLE VIDES CONSULTATION REPORT Page 1 of 1 X Aiden Trujillo MD CONSULTATION REPORT
[~2016-12-13 13:02] MED LIST changes: -AUGMENTIN PO; -BASAGLAR K100 UNIT/1 SUBQ; -CYMBALTA PO; -DULOXETINE HCL60 M1 PO; -HUMALOG KW100 UNIT/1 SUBQ; -LEVEMIR INJ; -LO-DOSE ASPIRIN81 M1 PO; -LORTAB 7.5-3251 EACH PO; -METRONIDAZOLE PO; -NORCO 7.5-3251 EACH PO; -NOVOLIN R100 UNITS/ INJ; -PATIENT'S PHARMACY; -PHENERGAN LIQUID PO; -PHENERGAN PO; -PHENERGAN12.5 MG/0. PO; -PRAVACHOL PO; -PROBIOTIC1 EAC2 PO; -VANCOMYCIN PO; -ZYPREXA PO; -ZYPREXA10 MG PO; -ZYPREXA20 MG PO
[2016-12-13 14:02] LABS: BASOPHIL# 0.1 X10e3 (0-0.3); BASOPHIL% 1.5 % (0-2.5); EOSINOPHIL# 0.1 X10e3 (0-0.7); HEMATOCRIT 45.4 % (38.0-50.0); HEMOGLOBIN 15.3 gm/dL (13.0-16.0); LYMPHOCYTE# 2.1 X10e3 (1.0-3.5); LYMPHOCYTE% 34.5 % (17.0-45.0); MEAN CELL VOLUME 94.8 FL (83-96); MEAN CORPUSCULAR HEMOGLOBIN 31.9 PG (28-34); MEAN CORPUSCULAR HGB CONC 33.6 g/dL (30-36); MONOCYTE# 0.4 X10e3 (0-1.0); MONOCYTE% 6.7 % (3.0-12.0); NEUTROPHIL# 3.5 X10e3 (1.5-7.1); NEUTROPHIL% 56.3 % (40-75); PLATELET COUNT 324 X10e3 (140-420); RED BLOOD COUNT 4.79 X10e (3.90-5.60); RED CELL DISTRIBUTION WIDTH 13.2 % (11.0-15.5); WHITE BLOOD COUNT 6.2 X10e3 (4.0-10.5)
[2016-12-13 14:07] LABS: DIFF IND NO
[2016-12-13 14:24] LABS: URINE SOURCE CLEAN CATCH
[2016-12-13 14:28] LABS: URINE APPEARANCE CLEAR; URINE BILIRUBIN NEG (NEG); URINE BLOOD 1+ (NEG); URINE COLOR YELLOW; URINE GLUCOSE >1000 MG/DL (NEG); URINE KETONE 3+ (NEG); URINE LEUKOCYTE ESTERASE NEG (NEG); URINE NITRATE NEG (NEG); URINE PROTEIN 1+ (NEG); URINE SPECIFIC GRAVITY 1.025 (1.003-1.035)
[2016-12-13 14:30] LABS: U HYALINE CASTS AUWI 0-2 /[LPF]; URINE BACTERIA AUWI NEG (NEGATIVE); URINE SQUAMOUS EPITHELIAL CELL NONE SEEN /[HPF]; UWBCS1 AUWI 0-2 (0-5)
[2016-12-13 14:37] LABS: CULTURE INDICATED? NO
[2016-12-13 14:38] LABS: ALBUMIN SERUM 4.9 g/dL (3.5-5.0); BILIRUBIN, DIRECT 0.1 mg/dL (0.0-0.2); BILIRUBIN,INDIRECT 1.5 mg/dL (0.0-0.9); BILIRUBIN,TOTAL 1.6 mg/dL (0.2-2.0); BUN/CREATININE RATIO 17.5; CALCIUM SERUM 8.7 mg/dL (8.4-10.2); CREATININE SERUM 0.8 mg/dL (0.6-1.4); GLOM FILT RATE Estimated 109.5 mL/min (>60); POTASSIUM 3.9 mmol/L (3.5-5.1); PROTEIN TOTAL SERUM 8.4 g/dL (6.0-8.3)
[2016-12-13 15:15] LABS: POC - CKMB 1.7 ng/mL (0.0-7.9); POC - TROPONIN <0.05 ng/mL (<=0.05)
[2016-12-13 18:19] LABS: BUN/CREATININE RATIO 16.25; CREATININE SERUM 0.8 mg/dL (0.6-1.4); GLOM FILT RATE Estimated 109.5 mL/min (>60); POTASSIUM 3.6 mmol/L (3.5-5.1)
[2016-12-13 20:38] LABS: ARTERIAL BLOOD GAS CARBOXY HB 1.1 %sat (0.0-9.0); ARTERIAL BLOOD GAS HCO3 9.5 mmol/L; ARTERIAL BLOOD GAS MET HB 1.1 %sat (0.0-2.0); ARTERIAL BLOOD GAS PCO2 23.2 mmHg (35.0-45.0)
[2016-12-13 20:39] LABS: AMYLASE 14 U/L (0-46); LIPASE 15 U/L (22-51)
[2016-12-13 20:40] LABS: ARTERIAL BLOOD GAS ALLEN TEST NORMAL; ARTERIAL BLOOD GAS ART SITE LEFT RADIAL; ARTERIAL BLOOD GAS DELIVERY ROOMAIR; ARTERIAL DRAW? YES
[2016-12-13 21:50] LABS: BUN/CREATININE RATIO 17.14; CALCIUM SERUM 7.9 mg/dL (8.4-10.2); CREATININE SERUM 0.7 mg/dL (0.6-1.4); GLOM FILT RATE Estimated 115.6 mL/min (>60); POTASSIUM 3.2 mmol/L (3.5-5.1)
[2016-12-14 10:43] LABS: CALCIUM SERUM 8.3 mg/dL (8.4-10.2); CREATININE SERUM 0.4 mg/dL (0.6-1.4); GLOM FILT RATE Estimated 145.5 mL/min (>60)
[2016-12-14 10:45] LABS: POTASSIUM 2.9 mmol/L (3.5-5.1)
[2016-12-14 15:47] LABS: BUN/CREATININE RATIO 26.66; CALCIUM SERUM 8.2 mg/dL (8.4-10.2); CREATININE SERUM 0.3 mg/dL (0.6-1.4); GLOM FILT RATE Estimated 163.8 mL/min (>60); POTASSIUM 3.2 mmol/L (3.5-5.1)
[2016-12-14 21:49] LABS: BUN/CREATININE RATIO 13.33; CALCIUM SERUM 8.4 mg/dL (8.4-10.2); CREATININE SERUM 0.6 mg/dL (0.6-1.4); GLOM FILT RATE Estimated 123.2 mL/min (>60); POTASSIUM 3.9 mmol/L (3.5-5.1)
[2016-12-15 03:42] LABS: CALCIUM SERUM 8.7 mg/dL (8.4-10.2); CREATININE SERUM 0.5 mg/dL (0.6-1.4); GLOM FILT RATE Estimated 132.8 mL/min (>60); MAGNESIUM 1.9 mg/dL (1.6-3.0); PHOSPHOROUS 2.3 mg/dL (2.5-4.6); POTASSIUM 3.7 mmol/L (3.5-5.1)
[2016-12-15 10:38] LABS: CALCIUM SERUM 8.3 mg/dL (8.4-10.2); CREATININE SERUM 0.5 mg/dL (0.6-1.4); GLOM FILT RATE Estimated 132.8 mL/min (>60); POTASSIUM 3.5 mmol/L (3.5-5.1)
[2016-12-15 16:00] LABS: CALCIUM SERUM 8.6 mg/dL (8.4-10.2); CREATININE SERUM 0.5 mg/dL (0.6-1.4); GLOM FILT RATE Estimated 132.8 mL/min (>60); PHOSPHOROUS 3.2 mg/dL (2.5-4.6); POTASSIUM 3.6 mmol/L (3.5-5.1)
[2016-12-15 21:41] LABS: CREATININE SERUM 0.5 mg/dL (0.6-1.4); GLOM FILT RATE Estimated 132.8 mL/min (>60); POTASSIUM 3.8 mmol/L (3.5-5.1)
[2016-12-16 03:26] LABS: HEMATOCRIT 36.1 % (38.0-50.0); HEMOGLOBIN 12.2 gm/dL (13.0-16.0); MEAN CELL VOLUME 94.4 FL (83-96); MEAN CORPUSCULAR HEMOGLOBIN 31.8 PG (28-34); MEAN CORPUSCULAR HGB CONC 33.7 g/dL (30-36); MEAN PLATELET VOLUME 7.8 FL (6.5-11.5); RED BLOOD COUNT 3.82 X10e (3.90-5.60); RED CELL DISTRIBUTION WIDTH 13.7 % (11.0-15.5); WHITE BLOOD COUNT 4.1 X10e3 (4.0-10.5)
[2016-12-16 03:53] LABS: ALBUMIN SERUM 3.8 g/dL (3.5-5.0); BILIRUBIN,TOTAL 0.3 mg/dL (0.2-2.0); BUN/CREATININE RATIO 8.33; CALCIUM SERUM 9.1 mg/dL (8.4-10.2); CREATININE SERUM 0.6 mg/dL (0.6-1.4); GLOM FILT RATE Estimated 123.2 mL/min (>60); MAGNESIUM 1.9 mg/dL (1.6-3.0); PHOSPHOROUS 3.7 mg/dL (2.5-4.6); POTASSIUM 4.3 mmol/L (3.5-5.1); PROTEIN TOTAL SERUM 6.1 g/dL (6.0-8.3)
[2016-12-17 04:01] LABS: HEMATOCRIT 34.8 % (38.0-50.0); HEMOGLOBIN 11.7 gm/dL (13.0-16.0); MEAN CELL VOLUME 94.4 FL (83-96); MEAN CORPUSCULAR HEMOGLOBIN 31.6 PG (28-34); MEAN CORPUSCULAR HGB CONC 33.5 g/dL (30-36); RED BLOOD COUNT 3.68 X10e (3.90-5.60); RED CELL DISTRIBUTION WIDTH 13.8 % (11.0-15.5); WHITE BLOOD COUNT 5.3 X10e3 (4.0-10.5)
[2016-12-17 04:27] LABS: CALCIUM SERUM 8.9 mg/dL (8.4-10.2); CREATININE SERUM 0.6 mg/dL (0.6-1.4); GLOM FILT RATE Estimated 123.2 mL/min (>60); MAGNESIUM 1.9 mg/dL (1.6-3.0); PHOSPHOROUS 3.8 mg/dL (2.5-4.6); POTASSIUM 4.2 mmol/L (3.5-5.1)
[2016-12-18 17:50] LABS: CK TOTAL 44 IU/L (36-174)
[2016-12-19 07:19] LABS: HEMATOCRIT 34.4 % (38.0-50.0); HEMOGLOBIN 11.5 gm/dL (13.0-16.0); MEAN CELL VOLUME 95.1 FL (83-96); MEAN CORPUSCULAR HEMOGLOBIN 31.9 PG (28-34); MEAN CORPUSCULAR HGB CONC 33.6 g/dL (30-36); MEAN PLATELET VOLUME 8.2 FL (6.5-11.5); RED BLOOD COUNT 3.61 X10e (3.90-5.60); RED CELL DISTRIBUTION WIDTH 13.9 % (11.0-15.5); WHITE BLOOD COUNT 7.3 X10e3 (4.0-10.5)
[2016-12-19 07:49] LABS: CALCIUM SERUM 8.6 mg/dL (8.4-10.2); CREATININE SERUM 0.5 mg/dL (0.6-1.4); GLOM FILT RATE Estimated 132.8 mL/min (>60); POTASSIUM 3.7 mmol/L (3.5-5.1)
[2016-12-19 14:10] LABS: FREE T3 2.3 pg/mL (2.5-3.9)
[2016-12-19 14:11] LABS: FREE THYROXIN (T4) 0.99 ng/dL (0.58-1.64)
[2016-12-19 15:19] LABS: AMPHETAMINE NEG (NEG); BARBITURATES NEG (NEG); BENZODIAZEPINES NEG (NEG); COCAINE NEG (NEG); MARIJUANA NEG (NEG); OPIATES NEG (NEG); TRICYCLIC ANTIDEPRESSANTS NEG (NEG); U METHADONE NEG (NEG)
[2016-12-20 07:42] LABS: BUN/CREATININE RATIO 33.33; CALCIUM SERUM 8.7 mg/dL (8.4-10.2); CREATININE SERUM 0.3 mg/dL (0.6-1.4); GLOM FILT RATE Estimated 163.8 mL/min (>60); MAGNESIUM 1.8 mg/dL (1.6-3.0)
[2016-12-20 10:40] LABS: CHOLESTEROL 86 mg/dL (0-200); HDL CHOLESTEROL 43 mg/dL (29-75); LDL CHOLESTEROL 26 mg/dL (-130); LDL/HDL RATIO 1 RATIO (0-4); TRIGLYCERIDES 84 mg/dL (10-160)
[2016-12-21 07:52] LABS: HEMOGLOBIN 10.6 gm/dL (13.0-16.0); MEAN CELL VOLUME 95.7 FL (83-96); MEAN CORPUSCULAR HEMOGLOBIN 31.9 PG (28-34); MEAN CORPUSCULAR HGB CONC 33.3 g/dL (30-36); MEAN PLATELET VOLUME 8.6 FL (6.5-11.5); RED BLOOD COUNT 3.34 X10e (3.90-5.60); RED CELL DISTRIBUTION WIDTH 13.4 % (11.0-15.5); WHITE BLOOD COUNT 8.2 X10e3 (4.0-10.5)
[2016-12-21 09:09] LABS: CALCIUM SERUM 8.3 mg/dL (8.4-10.2); CREATININE SERUM 0.4 mg/dL (0.6-1.4); GLOM FILT RATE Estimated 145.5 mL/min (>60); MAGNESIUM 1.7 mg/dL (1.6-3.0); POTASSIUM 4.2 mmol/L (3.5-5.1)
[2016-12-22 06:07] LABS: HEMATOCRIT 35.1 % (38.0-50.0); HEMOGLOBIN 11.5 gm/dL (13.0-16.0); MEAN CELL VOLUME 95.5 FL (83-96); MEAN CORPUSCULAR HEMOGLOBIN 31.3 PG (28-34); MEAN CORPUSCULAR HGB CONC 32.8 g/dL (30-36); MEAN PLATELET VOLUME 8.1 FL (6.5-11.5); RED BLOOD COUNT 3.67 X10e (3.90-5.60); RED CELL DISTRIBUTION WIDTH 13.7 % (11.0-15.5); WHITE BLOOD COUNT 5.5 X10e3 (4.0-10.5)
[2016-12-22 07:23] LABS: CREATININE SERUM 0.5 mg/dL (0.6-1.4); GLOM FILT RATE Estimated 132.8 mL/min (>60); POTASSIUM 4.2 mmol/L (3.5-5.1)
[2016-12-22 07:26] LABS: PROCALCITONIN 0.07 NG/ML
[2016-12-23 07:30] LABS: BASOPHIL# 0.1 X10e3 (0-0.3); BASOPHIL% 1.1 % (0-2.5); EOSINOPHIL# 0.3 X10e3 (0-0.7); EOSINOPHIL% 6.1 % (0.0-7.0); HEMATOCRIT 32.4 % (38.0-50.0); HEMOGLOBIN 10.8 gm/dL (13.0-16.0); LYMPHOCYTE# 1.8 X10e3 (1.0-3.5); LYMPHOCYTE% 34.1 % (17.0-45.0); MEAN CELL VOLUME 95.3 FL (83-96); MEAN CORPUSCULAR HEMOGLOBIN 31.8 PG (28-34); MEAN CORPUSCULAR HGB CONC 33.3 g/dL (30-36); MEAN PLATELET VOLUME 7.4 FL (6.5-11.5); MONOCYTE# 0.6 X10e3 (0-1.0); MONOCYTE% 12.2 % (3.0-12.0); NEUTROPHIL# 2.4 X10e3 (1.5-7.1); NEUTROPHIL% 46.5 % (40-75); PLATELET COUNT 395 X10e3 (140-420); RED CELL DISTRIBUTION WIDTH 13.9 % (11.0-15.5); WHITE BLOOD COUNT 5.3 X10e3 (4.0-10.5)
[2016-12-23 07:34] LABS: DIFF IND NO
[2016-12-23 08:00] LABS: CREATININE SERUM 0.5 mg/dL (0.6-1.4); GLOM FILT RATE Estimated 132.8 mL/min (>60); POTASSIUM 3.8 mmol/L (3.5-5.1)
[2016-12-23] MEDS ORDERED: LANTUS100 UNITS/ SUBQ (18:16)
[2016-12-23] MEDS ORDERED: LANTUS100 U/ML SUBQ (18:16)
[2016-12-23] MEDS ORDERED: NOVOLOG100 U/ML SUBQ (18:17)
[2016-12-23] MEDS ORDERED: NORCO 7.5-3251 EACH PO (18:20)
[2016-12-23] MEDS ORDERED: METRONIDAZOLE PO (18:21)
[2016-12-23] MEDS ORDERED: VANCOMYCIN PO (18:24)
[2016-12-23] MEDS ORDERED: AUGMENTIN PO (18:25)
[2016-12-23] MEDS ORDERED: ZYPREXA10 MG PO (18:26)
[2017-01-12] MEDS ORDERED: LANTUS100 U/ML SUBQ (09:25)
[2017-01-12] MEDS ORDERED: HUMALOG100 UNIT/1 SUBQ (09:26)
[2017-01-12] MEDS ORDERED: HUMALOG100 UNIT/1 (09:26)
[2017-01-12] MEDS ORDERED: PROTONIX PO (09:27)
[2017-01-12] MEDS ORDERED: LO-DOSE ASPIRIN81 M1 PO (09:27)
[2017-01-12] MEDS ORDERED: PRAVASTATIN SOD40 MG PO (09:27)
[2017-01-12] MEDS ORDERED: PHENERGAN PO (09:28)
[2017-01-12] MEDS ORDERED: PHENERGAN LIQUID PO (09:29)
[2017-01-12] MEDS ORDERED: CYMBALTA PO (09:30)
[2017-01-12] MEDS ORDERED: GABAPENTIN800 MG PO (09:30)
[2017-01-12] MEDS ORDERED: PROBIOTIC1 EAC2 PO (09:30)
[2017-01-12] MEDS ORDERED: ZYPREXA20 MG PO (09:31)
[2017-04-27] MEDS ORDERED: ASPIRIN81 M2 PO (11:15)
[2017-04-27] MEDS ORDERED: PATIENT'S PHARMACY (11:15)
[2017-04-27] MEDS ORDERED: LORTAB 7.5-3251 EACH PO (11:15)
[2017-04-27] MEDS ORDERED: PROTONIX PO (11:15)
[2017-04-27] MEDS ORDERED: BASAGLAR K100 UNIT/1 SUBQ (11:16)
[2017-04-27] MEDS ORDERED: HUMALOG KW100 UNIT/1 SUBQ (11:16)
[2017-04-27] MEDS ORDERED: ZYPREXA PO (11:16)
[2017-04-27] MEDS ORDERED: DULOXETINE HCL60 M1 PO (11:16)
[2017-04-27] MEDS ORDERED: PRAVACHOL PO (11:16)
[2017-04-27] MEDS ORDERED: GABAPENTIN400 M2 PO (11:16)
== END 2016-12-23 19:01 | disposition home or self-care (01) | DRG 623 ==
LOC: CED 13:02 → CICCU3 20:00 → CEDOF 20:00 → C5B 20:00 → CICCU3 12-14 02:59 → C5B 12-14 22:30
PROVIDERS: Emergency Medicine; Hospitalist; Internal Medicine; Internal Medicine Cardiovascular Disease; Physician Assistant Medical; Specialist
PROC: B24BZZZ Ultrasonography of Heart with Aorta (ICD-10-PCS; 2016-12-19)
PROC: 0JBH0ZZ Excision of Left Lower Arm Subcutaneous Tissue and Fascia, Open Approach (ICD-10-PCS; principal; 2016-12-22 14:30)
DX: E10.10 Type 1 diabetes mellitus with ketoacidosis without coma (principal); A04.7 Enterocolitis due to Clostridium difficile; I95.9 Hypotension, unspecified; L02.414 Cutaneous abscess of left upper limb; E10.42 Type 1 diabetes mellitus with diabetic polyneuropathy; E83.39 Other disorders of phosphorus metabolism; E44.1 Mild protein-calorie malnutrition; L03.114 Cellulitis of left upper limb; Z68.1 Body mass index [BMI] 19.9 or less, adult; Z79.4 Long term (current) use of insulin; R00.0 Tachycardia, unspecified; F41.9 Anxiety disorder, unspecified; D63.8 Anemia in other chronic diseases classified elsewhere; E78.5 Hyperlipidemia, unspecified; J44.9 Chronic obstructive pulmonary disease, unspecified; Z88.5 Allergy status to narcotic agent; F17.210 Nicotine dependence, cigarettes, uncomplicated; F90.9 Attention-deficit hyperactivity disorder, unspecified type; R07.89 Other chest pain; R55 Syncope and collapse; F43.10 Post-traumatic stress disorder, unspecified; F12.90 Cannabis use, unspecified, uncomplicated; F10.21 Alcohol dependence, in remission; E87.6 Hypokalemia; E86.0 Dehydration; K21.9 Gastro-esophageal reflux disease without esophagitis
CPT/HCPCS: 36415; 36600; 70450; 71010; 71101; 73201; 74176; 74250; 80048; 80053; 80061; 80076; 80307; 81003; 82150; 82308; 82533; 82550; 82553; 82803; 82947; 83036; 83690; 83735; 84100; 84439; 84443; 84481; 84484; 85025; 85027; 87040; 87045; 87070; 87075; 87205; 87427; 87493; 87899; 88304; 88312; 93005; 93306; 93971; 96361; 96372; 96374; 96375; 99285; C9113; J1650; J1815; J2250; J2270; J2405; J2543; J2550; J3010; J3475; Q9967

== ENCOUNTER → 2017-01-12 | Outpatient (CLI) | payer OTHER ==
[~2017-01-12] MED LIST changes: +AUGMENTIN PO; +BASAGLAR K100 UNIT/1 SUBQ; +CYMBALTA PO; +DULOXETINE HCL60 M1 PO; +HUMALOG KW100 UNIT/1 SUBQ; +LEVEMIR INJ; +LO-DOSE ASPIRIN81 M1 PO; +LORTAB 7.5-3251 EACH PO; +METRONIDAZOLE PO; +NORCO 7.5-3251 EACH PO; +NOVOLIN R100 UNITS/ INJ; +PATIENT'S PHARMACY; +PHENERGAN LIQUID PO; +PHENERGAN PO; +PHENERGAN12.5 MG/0. PO; +PRAVACHOL PO; +PROBIOTIC1 EAC2 PO; +VANCOMYCIN PO; +ZYPREXA PO; +ZYPREXA10 MG PO; +ZYPREXA20 MG PO
[2017-01-12 11:46] LABS: ALBUMIN SERUM 4.8 g/dL (3.5-5.0); BILIRUBIN,TOTAL 0.7 mg/dL (0.2-2.0); CALCIUM SERUM 9.9 mg/dL (8.4-10.2); CREATININE SERUM 0.6 mg/dL (0.6-1.4); GLOM FILT RATE Estimated 123.2 mL/min (>60); POTASSIUM 4.1 mmol/L (3.5-5.1); PROTEIN TOTAL SERUM 7.8 g/dL (6.0-8.3)
== END | disposition home or self-care (01) ==
LOC: CAMB 08:55 → EDSTATUS 09:00 → CAMB 09:00
PROVIDERS: Surgery
DX: Z01.812 Encounter for preprocedural laboratory examination (principal)
CPT/HCPCS: 36415; 80053

== ENCOUNTER → 2017-01-20 | Day surgery (SDC) | payer OTHER ==
--- NOTE | ~2017-01-20 | OR ---
Unit #: [id number] #: [id number] Patient: LACHELLE VIDES [id number] [place], [place] [address] [id number] MR#: [id number] NAME: LACHELLE VIDES ROOM: Date of Procedure: 01/20/2017 Admission Date: 01/20/2017 Surgeon: Erik Polk Jr., M.D. : 1975 Attending Physician: Erik Polk Jr., M.D. Primary Care Physician: Octaviano Webster M.D. OPERATIVE REPORT INDICATION FOR PROCEDURE The patient is a 41-year-old white male, who has been having intermittent biliary colic with evidence of gallbladder disease. It was felt that he should have a laparoscopic cholecystectomy and he is brought in this time at his request for this procedure. He understands the procedure including the risks, including that of common duct injury, biliary leak, and bleeding, and intra-abdominal organ injury, and consents. PREOPERATIVE DIAGNOSIS Chronic cholecystitis. POSTOPERATIVE DIAGNOSIS Chronic cholecystitis noting a partially wrapped up gallbladder with omental adhesions. ANESTHESIA General with endotracheal intubation and 0.5% Marcaine with epinephrine locally. PROCEDURE PERFORMED Laparoscopic cholecystectomy with lysis of adhesions. DESCRIPTION OF PROCEDURE The patient was positioned in supine position. After being anesthetized and intubated, he was prepped and draped in routine fashion for laparoscopic cholecystectomy. A small infraumbilical incision was made approximately a centimeter in length. This was carried down to the fascia. The fascia and umbilicus were lifted with a towel clip, and a Veress needle introduced into the abdomen. The abdomen was then inflated with CO2 gas. A 5-mm port was introduced in the abdomen followed by the camera. There was no evidence of any injury related to introduction of the port or the Veress needle. Brief intra-abdominal exploration was carried out. The patient was noted to have evidence of a chronic inflamed gallbladder. Two 5-mm ports were placed laterally and an 11-mm port just to the right of the upper midline. The gallbladder was lifted. There were multiple omental adhesions with the gallbladder being at least two-thirds wrapped with these adhesions. These were all taken down with sharp dissection as well as with the hook cautery. After lysis of adhesions was performed and the gallbladder freed up, dissection was carried out on the triangle of Calot, cystic duct was isolated 1 to 2 mm in diameter, it was hemoclipped x4 and divided a centimeter from its junction with the common duct. Common duct appeared normal. Cystic Unit #: [id number] #: [id number] Patient: LACHELLE VIDES artery was identified, hemoclipped x3, and divided. The gallbladder was then removed from its bed with the hook cautery using a current of 20 and after it was released, it was removed through the upper midline incision along with the grasping clamp and the port. The port was replaced. Subhepatic space checked. There was no evidence of any bleeding from the gallbladder bed. The clips on cystic duct and cystic artery were intact with no evidence of any leak or bleeding. At this point, using the neoClose technique, the fascia in the larger port site was approximated and the ports were then removed. CO2 was expressed from the abdomen. The port sites were injected with 0.5% Marcaine with epinephrine. There was no evidence of any bleeding from the port sites. After irrigating and coagulating the port site tissue for bleeding, the skin edges were approximated with stainless-steel skin clips and skin stapling device. Sterile dressings were applied externally. Estimated blood loss less than 50 mL. The patient received less than 1000 mL crystalloid solution during the procedure. Sponges and instruments counts were correct x3. No drains were used. No complications. The patient was taken to recovery room with stable vital signs in satisfactory condition. Dictated by... Erik Polk Jr., Yamileth LEI/bernardo TD: 01/21/2017 03:41 JOB #: [id number] OPERATIVE REPORT Page 1 of 1 X Erik Polk MD PROCEDURE OPERATIVE NOTE
--- NOTE | ~2017-01-20 | EKG ---
PATIENT: LACHELLE VIDES UNIT #: [id number] Ventricular Rate: 85 BPM Atrial Rate: 85 BPM P-R Interval: 194 ms QRS Duration: 90 ms Q-T Interval: 406 ms QTC Calculation(Bezet): 483 ms P [place]: 68 degrees Calculated R [place]: 25 degrees Calculated T [place]: 51 degrees Diagnosis Line: Normal sinus rhythm Diagnosis Line: Prolonged QT Diagnosis Line: Abnormal ECG Diagnosis Line: When compared with ECG of 19-DEC-2016 04:17, Diagnosis Line: No significant change was found Diagnosis Line: Confirmed by MARIO TELLEZ MD ([id number]) on Diagnosis Line: 01/20/2017 4:22:19 PM INTERPRETING MD: CATHERINE
[2017-01-20 09:52] LABS: ALBUMIN SERUM 4.1 g/dL (3.5-5.0); BILIRUBIN,TOTAL 0.9 mg/dL (0.2-2.0); CALCIUM SERUM 8.9 mg/dL (8.4-10.2); CREATININE SERUM 0.6 mg/dL (0.6-1.4); GLOM FILT RATE Estimated 123.2 mL/min (>60); POTASSIUM 4.3 mmol/L (3.5-5.1); PROTEIN TOTAL SERUM 7.1 g/dL (6.0-8.3)
== END | disposition home or self-care (01) ==
LOC: CSUR 08:35
PROVIDERS: Surgery
DX: K81.1 Chronic cholecystitis (principal); E10.9 Type 1 diabetes mellitus without complications; Z79.4 Long term (current) use of insulin; K21.9 Gastro-esophageal reflux disease without esophagitis; J44.9 Chronic obstructive pulmonary disease, unspecified; F17.200 Nicotine dependence, unspecified, uncomplicated
CPT/HCPCS: 80053; 82947; 88304; 93005; J0690; J1610; J1650; J1815; J2250; J3010; J3370

== ENCOUNTER 2017-01-25 15:12 | Inpatient (IN) | payer OTHER ==
--- NOTE | ~2017-01-25 | CO ---
Unit #: [id number] #: [id number] Patient: LACHELLE VIDES [id number] [place] [address] [facility]. [place], [place] [address] [id number] I MR#: [id number] NAME: LACHELLE VIDES ROOM: 303 Age: 41 Sex: M Admission Date: 01/25/2017 : 1975 Attending Physician: Saul Pacheco M.D. Primary Care Physician: Octaviano Webster M.D. Consultation Date: 01/26/2017 CONSULTATION REPORT REASON FOR CONSULTATION Diabetic ketoacidosis. HISTORY OF PRESENT ILLNESS This is a 41-year-old man very well known to me from multiple admissions. He had a recent laparoscopic cholecystectomy done on 01/20/[address] Polk, done as an outpatient. After laparoscopic cholecystectomy, he was discharged home, but since he has been discharged he has not been feeling well. He reports he started to having nausea and vomiting, and was unable to eat anything. He came to the emergency room, where he was found to be in a diabetic ketoacidosis. He was started on IV hydration and insulin drip transferred to the unit bed, where the patient is being seen at this point. Note on admission, the patient has a blood glucose of 577, sodium 128, CO2 of 14, pH of 7.22. PAST MEDICAL HISTORY 1. Type 1 diabetes mellitus. 2. History of diabetic ketoacidosis. 3. Peripheral neuropathy. 4. Depression. 5. ADHD. 6. PTSD. PAST SURGICAL HISTORY Left shoulder surgery, left foot plantar surgery, history of I and D, EGD, and colonoscopy. SOCIAL HISTORY Lives with mother. Continues to smoke cigarettes and marijuana. Declines alcohol. FAMILY HISTORY Diabetes, coronary artery disease. HOME MEDICATIONS List was reviewed. The patient is on Lantus 30 units b.i.d., Humalog 3 to 6 units each meal. ALLERGIES Codeine, Levaquin, hydromorphone. REVIEW OF SYSTEMS A 12-point of review of system was completed. At this point, the patient Unit #: [id number] #: [id number] Patient: LACHELLE VIDES declines any nausea, vomiting, abdominal pain. He wants to eat, he is hungry. PHYSICAL EXAMINATION GENERAL: Lying comfortably, in no acute distress VITAL SIGNS: Temperature is 98.6, pulse is 105, blood pressure is 120/86. HEENT: EOMI. Pupils are equally reactive to light. NECK: Supple. No thyromegaly noted. CHEST: Good air entry. CVS: Regular rhythm. No murmurs. ABDOMEN: Benign. NEURO: Nonfocal. DIAGNOSTIC STUDIES LABORATORY RESULTS: Reviewed. Recent lab show sodium 134, potassium 3.1, chloride 101, CO2 is 25. A1c is 14%. ASSESSMENT 1. Diabetic ketoacidosis, which has resolved at this point. 2. Hyponatremia. 3. Hypokalemia. PLAN Plan is to start the patient on subcu insulin, Levemir 25 units one dose now then 15 units subcu b.i.d., NovoLog 3 to 4 units with meals. Advance diet to consistent carb with 60 g carbs with each meal. Continue supplemental insulin 1 unit for every 50 above 150. Accu-Cheks a.c. and h.s. Discontinue IV fluids. Thanks again for consultation. Dictated by... Yamileth Quick/bernardo TD: 01/27/2017 06:39 JOB #: [id number] CONSULTATION REPORT Page 1 of 1 X Bita Henao MD CONSULTATION REPORT
--- NOTE | ~2017-01-25 | A ---
[facility] Nutrition Therapy DATE: 01/26/17 Patient: LACHELLE ALTAMIRANO DOMINICKGRUJIT Physician: ASPEN Address: [address] Room/Bed: [address], Zip: [place] [address] Admit Date: 01/25/17 Date of : [birth year] Height: 6 0 Weight: 147 67 NUTRITIONAL ASSESSMENT: REASON: PT SEEN FOR DX + LOW BMI + NPO IN ICU ASSESSMENT PT IS 41 Y.O. MALE ADMITTED FOR DKA, ABD PAIN PMH: T2DM, BIPOLAR DISORDER, PANCREATITIS, HLD, PTSD, GERD, SEIZURE DISORDER, COPD, PERIPHERAL NEUROPATHY Anthropometrics: 6'0", WT: 133-147# (60-67 KG), BMI: 18.0-19.9, 74-83%IBW Labs: GLU: 208, ALB: 5.1, PHOS: 2.2, A1c: 15.4 (12/13/16) Meds: KCL, MAG SULFATE, PHENERGAN, ZOFRAN, PROTONIX, NACL I/O & Bowel function: 1634/803, 3 BMs NOTED Skin Integrity: REDNESS BOTTOM/LOLY AREA; SCAR (L) PLANTAR FOOT; SCATTERED SCABS/SORES Estimated Nutrition Needs: INCREASED NEEDS 2' PT UNDERWEIGHT Assessment: CHART REVIEWED AND EVENTS NOTED. PT SEEN FOR DX + NPO IN ICU + LOW BMI. PT CURRENTLY NPO 2' DKA PROTOCOL. RD ATTEMPTED TO SPEAK TO PT BUT PT TOO LETHARGIC/SLEEPY. PT UNABLE TO WAKE TO VERBAL CUES. RD LEFT WRITTEN DIET EDUCATIO AT BEDSIDE. OF NOTE, PT WAS ASSESSED BY RD ON DECEMBER 14, 2016 AND WAS EDUCATED ON CC DIET. PT REPORTED AT LAST ADMIT THAT HE HAS MISSING TEETH. RD TO FOLLOW. SEE RECOMMENDATIONS BELOW. Dx: UNDERWEIGHT R/T PMH AEB BMI OF 18.0-19.9., 74-83%IBW. -IMPAIRED GLYCEMIC CONTROL R/T DX, PMH AEB ELEVALED BLOOD SUGARS, A1c OF 15.4. Intervention: 1. NPO Monitoring, Evaluation and Goals: 1. PO INTAKE; ADVANCE DIET AND CONSUME/TOLERATE >50% OF MEALS W/NO C/O N/V/D 2. WEIGHTS; PROMOTE GRADUAL WEIGHT GAIN TOWARDS HEALTHY BMI 3. LABS; WNL; GLUCOSE 4. SKIN; PROMOTE SKIN HEALING MONITOR: -DIET ADVANCEMENT/PO INTAKE/APPETITE -WEIGHTS -SUPPLEMENT INTAKE [facility] Nutrition Therapy DATE: 01/26/17 Patient: LACHELLE VIDES Physician: ASPEN Address: [address] Room/Bed: [address] [place] [address], Zip: [place] [address] Admit Date: 01/25/17 Date of : [birth year] Height: 6 0 Weight: 147 67 -EDUCATION NEEDS -LABS Recommendations: 1. ONCE MEDICALLY FEASIBLE, ADVANCE DIET TOLERATED TO CC (75 GRAMS) + DENTAL SOFT 2' MISSING TEETH. ENCOURAGE SMALL FREQUENT MEALS TO ENCOURAGE ADEQUATE KCAL AND PROTEIN INTAKE, PT UNDERWEIGHT 2. ONCE DIET ADVANCES, PLEASE ORDER GLUCERNA SHAKES TID W/MEALS 3. APPRECIATE FAMILY AND STAFF TO ENCOURAGE ADEQUATE PO INTAKE 4. CONSULT RD IF FURTHER DIET EDUCATION REQUESTE/NEEDED. PT HAS HX OF NON-COMPLIANCE WITH DIET EDUCATION AND MEDICATIONS 5. PLEASE WEIGH q 3 DAYS FOR MONITORING PURPOSES RD WILL F/U PER PROTOCOL PT IS MODERATELY COMPROMISED Respectfully, MAR SANTOS MS, RD, LD [facility] Nutrition[facility] Services [facility] cc: client file
--- NOTE | ~2017-01-25 | CR72 ---
[facility] A Service of [facility] RADIOLOGY TEXT RESULTS PATIENT: LACHELLE VIDES LOCATION: [place] [address]11 : [birth year] UNIT #: [id number] AGE: [address]: Saul Pacheco MD SEX: M ORDER DR: [id number] [facility] [address] [facility] [address]. [place], [place] [address] [id number] I MR#: [id number] #: [id number] NAME: LACHELLE VIDES : 1975 SEX: M STUDY DATE/TIME: 01/25/2017 22:42 UNIT: [facility] ROOM: [facility] STUDY DESCRIPTION: CR Chest Single View Portable Attending Physician: Saul Pacheco M.D. Ordering Physician: Saul Pacheco M.D. Primary Care Physician: Octaviano Webster M.D. MEDICAL IMAGING REPORT This report is preliminary unless electronic signature is present EXAM Portable chest, 01/25/2017 at 2242 hours INDICATION Shortness of air, cough, and congestion started yesterday. COMPARISON 12/18/2016 FINDINGS A single AP portable view of the chest shows both lungs to be clear. The heart is normal in size. The mediastinal contour is normal. No significant bone abnormalities are seen. IMPRESSION Normal portable chest. Dictated by... Livan Kaye Jr., M.D. THIS IS AN ELECTRONICALLY VERIFIED REPORT Livan Kaye Jr., M.D. at 01/26/2017 6:08 AM AMINTA/wilver TD: 01/25/2017 23:16 JOB #: [id number] MEDICAL IMAGING REPORT Page 1 of 1 COPY
--- NOTE | ~2017-01-25 | HP ---
Unit #: [id number] #: [id number] Patient: LACHELLE BUTLER [id number] [facility]. [place], [place] [address] [id number] I MR#: [id number] NAME: LACHELLE BUTLER ROOM: 303 Age: 41 Sex: M Admission Date: 01/25/2017 : 1975 Attending Physician: Saul Pacheco M.D. Primary Care Physician: Octaviano Webster M.D. HISTORY AND PHYSICAL ADMISSION DIAGNOSES 1. Abdominal pain. 2. Diabetic ketoacidosis. 3. Status post recent lap gaurang from last Monday. 4. History of diabetes. 5. Depression/anxiety. 6. Dyslipidemia. 7. Chronic obstructive pulmonary disease. 8. Continues tobacco use. 9. Peripheral neuropathy. HISTORY OF PRESENT ILLNESS Mr. Butler is a 41-year-old gentleman with an extensive history of diabetes, admission for DKA in the past, peripheral neuropathy, depression/anxiety and COPD who apparently was seen by surgery and underwent the lap gaurang last Monday, comes to the hospital with complaints of abdominal pain with some questionable bloody vomitus. The initial evaluation in the ER was significant for blood sugars of 577. The patient was in DKA, started on the IV insulin per DKA protocol and admitted to ICU. Currently, he states that his belly pain is better. Denies any fever or chills, denies any headache, dizziness, chest pain, shortness of air, or dyspnea. Denies any syncopal episode or presyncope. So, twelve point review of systems on this patient is basically negative except for as above. PAST MEDICAL HISTORY Significant for: 1. Diabetes. 2. COPD. 3. Depression/anxiety. 4. Post traumatic stress disorder. PAST SURGICAL HISTORY Significant for: 1. EGD. 2. Foot surgery. 3. Left shoulder surgery. 4. Recent lap gaurang from last Monday. MEDICATIONS Home medications on this gentleman include: 1. Lantus 30 units subcu b.i.d. 2. Humalog 3 units subcu t.i.d. and sliding scale. 3. Protonix. Unit #: [id number] #: [id number] Patient: LACHELLE BUTLER 4. Pravastatin. 5. Baby aspirin. 6. Phenergan. 7. Gabapentin. 8. Probiotics. 9. Cymbalta. 10. Zyprexa. ALLERGIES Codeine, levofloxacin. SOCIAL HISTORY Still continues to smoke a half pack per day. Denies any alcohol or illicit drugs. FAMILY HISTORY Otherwise unremarkable. PHYSICAL EXAMINATION GENERAL: The patient is a 41-year-old gentleman in no acute distress. VITAL SIGNS: Blood pressure 121/86, heart rate 105, respirations 15, temperature 99.6. HEENT: Head is atraumatic. Pupils equal, round and reactive to light and accommodation. Extraocular muscles intact. Oropharynx clear. NECK: Supple. No masses, no JVD, no bruits. CHEST: Diminished at the bases but otherwise clear. CARDIOVASCULAR: S1, S2. No murmurs. ABDOMEN: Soft. Tender to palpation over the left lower quadrant without any rebound. Bowel sounds are present but diminished. EXTREMITIES: Lower extremities without any cyanosis, clubbing or edema. NEUROLOGICAL: Cranial nerves grossly intact. No focal deficits. DIAGNOSTIC STUDIES IMAGING: Chest x-ray negative. CT abdomen and pelvis unremarkable except for gastroparesis. LABORATORY: Last chemistry significant for blood glucose of 141, down from 577. K of 3.1, white count 9.7, H and H 15.9 and 48. ASSESSMENT AND PLAN 1. Diabetic ketoacidosis which looks like it is resolving with the closing gap, status post evaluation per Dr. Henao: We will be getting off of the IV insulin drip pretty soon. 2. Abdominal pain, status post recent lap gaurang, unremarkable CT except shows some signs of gastroparesis. 3. History of diabetes. 4. Depression/anxiety/post traumatic stress disorder. 5. Dyslipidemia, on statin. 6. History of chronic obstructive pulmonary disease with continuous tobacco use at the baseline. Counseled on the importance of quitting tobacco. 7. Peripheral neuropathy: Continue home medications. 8. Continue GI and DVT prophylaxis with PPI. Unit #: [id number] #: [id number] Patient: LACHELLE BUTLER Dictated by Yamileth Vincent/df TD: 01/27/2017 06:09 JOB #: [id number] HISTORY AND PHYSICAL Page 1 of 1 X Saul Pacheco MD X HISTORY AND PHYSICAL
--- NOTE | ~2017-01-25 | EKG ---
PATIENT: LACHELLE VIDES UNIT #: [id number] Ventricular Rate: 126 BPM Atrial Rate: 126 BPM P-R Interval: 164 ms QRS Duration: 90 ms Q-T Interval: 278 ms QTC Calculation(Bezet): 402 ms P [place]: 79 degrees Calculated R [place]: 82 degrees Calculated T [place]: 87 degrees Diagnosis Line: Sinus tachycardia Diagnosis Line: Biatrial enlargement Diagnosis Line: Low voltage QRS Diagnosis Line: Nonspecific T wave abnormality Diagnosis Line: Abnormal ECG Diagnosis Line: When compared with ECG of 20-JAN-2017 09:32, Diagnosis Line: Questionable change in QRS axis Diagnosis Line: Nonspecific T wave abnormality now evident in Diagnosis Line: Inferior leads Diagnosis Line: Nonspecific T wave abnormality now evident in Diagnosis Line: Anterolateral leads Diagnosis Line: Confirmed by ARTURO JONES MD ([id number]) on Diagnosis Line: 01/26/2017 7:35:00 AM INTERPRETING MD: ARACELIS
--- NOTE | ~2017-01-25 | CT2 ---
[facility] A Service of [facility] RADIOLOGY TEXT RESULTS PATIENT: LACHELLE VIDES LOCATION: CICCU2 CICCU2-11 : [birth year] UNIT #: [id number] AGE: [address]: Saul Pacheco MD SEX: M ORDER DR: [id number] [facility] [address] [facility] [address] [facility]. [place], [place] [address] [id number] MR#: [id number] Acc #: [id number] NAME: LACHELLE VIDES : 1975 SEX: M STUDY DATE/TIME: 01/25/2017 17:50 UNIT: [facility] ROOM: STUDY DESCRIPTION: CT Abd and Pelv W Cont Attending Physician: Brendon Campos M.D. Ordering Physician: Brendon Campos M.D. Primary Care Physician: Octaviano Webster M.D. MEDICAL IMAGING REPORT This report is preliminary unless electronic signature is present EXAM CT abdomen and pelvis with contrast HISTORY Gallbladder surgery 01/20/2017, now complains of abdominal pain, vomiting. COMPARISON CT abdomen and pelvis 12/16/2016 TECHNIQUE Axial images performed through the abdomen and pelvis following IV contrast. Multiplanar reconstructed images were reviewed at a workstation. This CT exam was performed with one or more of the following radiation dose reduction techniques: automatic exposure control, adjustment of mA and/or kV according to patient size, and iterative reconstruction. FINDINGS Abdomen: Lung bases unremarkable. Liver and spleen unremarkable. The gallbladder is surgically absent. Pancreas, kidneys and adrenal glands unremarkable. No free air or free fluid. Moderate air and fluid distension of the stomach with a large air-fluid level. Mild distension of the proximal duodenum. No focal inflammatory change or obstructing lesions identified. The remainder of the small bowel and colon appears normal. Pelvis: Bladder is moderately distended. Prostate unremarkable. Osseous structures, soft tissues unremarkable. IMPRESSION Moderate air and fluid distension of the stomach suggesting gastroparesis with mild distension of the first and second portions of the duodenum. No obstructing lesion identified in this patient post recent cholecystectomy. [facility] A Service of [facility] RADIOLOGY TEXT RESULTS PATIENT: LACHELLE VIDES [facility] [birth year] UNIT #: [id number] AGE: [address]: Saul Pacheco MD SEX: M ORDER DR: Dictated by... Latoya Madsen M.D. THIS IS AN ELECTRONICALLY VERIFIED REPORT Latoya Madsen M.D. at 01/26/2017 2:46 PM REGAN/erika TD: 01/25/2017 18:33 JOB #: [id number] MEDICAL IMAGING REPORT Page 1 of 1 COPY
--- NOTE | ~2017-01-25 | DS ---
Unit #: [id number] #: [id number] Patient: LACHELLE VIDES [id number] [address] [id number] I MR#: [id number] NAME: LACHELLE VIDES ROOM: 303 Age: 41 Sex: M Admission Date: 01/25/2017 : 1975 Discharge Date: 01/27/2017 Attending Physician: Saul Pacheco M.D. Primary Care Physician: Octaviano Webster M.D. DISCHARGE SUMMARY DISCHARGE DIAGNOSES 1. Status post diabetic ketoacidosis. 2. Status post recent laparoscopic cholecystectomy. 3. Abdominal pain with nausea and vomiting, resolved. 4. History of depression and anxiety. 5. Dyslipidemia. 6. Chronic obstructive pulmonary disease. 7. History of peripheral neuropathy. DISCHARGE MEDICATIONS 1. Neurontin 800 mg t.i.d. 2. Cymbalta 60 mg q.h.s. 3. Phenergan 25 mg p.r.n. nausea q.6 hours. 4. Pravastatin 20 mg q.h.s. 5. Humalog 4 units subcu t.i.d. with meals. 6. Sliding scale insulin. 7. Lantus 15 units subcu q.h.s. 8. Aspirin 81 mg daily. 9. Probiotic 1 tablet q.a.m. 10. Protonix 40 mg daily. 11. Zyprexa 10 mg b.i.d. CONSULTS ON THIS HOSPITAL STAY Dr. Henao. DIAGNOSTIC STUDIES IMAGING: Chest x-ray unremarkable. CT abdomen and pelvis also unremarkable. HISTORY OF PRESENT HOSPITAL STAY Please refer to H and P done by me for initial presentation on this gentleman. ACTIVE PROBLEMS AND DIAGNOSES ON THIS HOSPITAL STAY DKA. Was admitted to ICU. Was treated with IV insulin per DKA protocol. Was evaluated by Dr. Henao. Currently stable. His blood sugar is 173. Out of ICU from last night. Transitioned to subcu insulin. Insulin regimen as above. See discharge med/rec per Dr. Henao. Outpatient followup with Dr. Henao. Diabetes. As above. Abdominal pain with nausea and vomiting and recent laparoscopic Unit #: [id number] #: [id number] Patient: LACHELLE VIDES cholecystectomy. Stable. Unremarkable CT. Pain resolved. Again, patient tolerating p.o. diet well. Depression and anxiety. Continue home medicines. Dyslipidemia. Continue statin. History of COPD. Stable. History of peripheral vascular disease. Continue Neurontin. DISPOSITION Going home. PLAN Patient had low potassium yesterday. Checking BMP. If everything looks fine, the patient is being discharged home with outpatient followup with primary care physician in 2-3 days and with endocrinology as an outpatient. Dictated by... Yamileth Vincent/dhiraj TD: 01/28/2017 09:19 JOB #: [id number] DISCHARGE SUMMARY Page 1 of 1 X Saul Pacheco MD X DISCHARGE SUMMARY
[~2017-01-25 15:12] MED LIST changes: -BASAGLAR K100 UNIT/1 SUBQ; -DULOXETINE HCL60 M1 PO; -HUMALOG KW100 UNIT/1 SUBQ; -LEVEMIR INJ; -LORTAB 7.5-3251 EACH PO; -NOVOLIN R100 UNITS/ INJ; -PATIENT'S PHARMACY; -PHENERGAN12.5 MG/0. PO; -PRAVACHOL PO; -ZYPREXA PO
[2017-01-25 16:15] LABS: BASOPHIL# 0.1 X10e3 (0-0.3); BASOPHIL% 1.5 % (0-2.5); EOSINOPHIL% 0.2 % (0.0-7.0); HEMOGLOBIN 15.9 gm/dL (13.0-16.0); LYMPHOCYTE# 1.6 X10e3 (1.0-3.5); LYMPHOCYTE% 16.4 % (17.0-45.0); MEAN CELL VOLUME 94.1 FL (83-96); MEAN CORPUSCULAR HEMOGLOBIN 31.1 PG (28-34); MEAN CORPUSCULAR HGB CONC 33.1 g/dL (30-36); MEAN PLATELET VOLUME 8.1 FL (6.5-11.5); MONOCYTE# 0.6 X10e3 (0-1.0); MONOCYTE% 6.1 % (3.0-12.0); NEUTROPHIL# 7.3 X10e3 (1.5-7.1); NEUTROPHIL% 75.8 % (40-75); PLATELET COUNT 427 X10e3 (140-420); RED CELL DISTRIBUTION WIDTH 13.3 % (11.0-15.5); WHITE BLOOD COUNT 9.7 X10e3 (4.0-10.5)
[2017-01-25 16:17] LABS: DIFF IND NO
[2017-01-25 16:42] LABS: ALBUMIN SERUM 5.1 g/dL (3.5-5.0); ALKALINE PHOSPHATASE 131 U/L (32-92); ALT (SGPT) 26 U/L (10-40); AST (SGOT) 16 U/L (10-42); BILIRUBIN,TOTAL 1.8 mg/dL (0.2-2.0); BLOOD UREA NITROGEN 17 mg/dL (9-23); BUN/CREATININE RATIO 15.45; CALCIUM SERUM 9.7 mg/dL (8.4-10.2); CARBON DIOXIDE 14 mmol/L (22-31); CHLORIDE 82 mmol/L (100-111); CREATININE SERUM 1.1 mg/dL (0.6-1.4); GLOM FILT RATE Estimated 81.8 mL/min (>60); LIPASE 17 U/L (22-51); POTASSIUM 3.8 mmol/L (3.5-5.1); PROTEIN TOTAL SERUM 8.5 g/dL (6.0-8.3); SODIUM 128 mmol/L (135-145)
[2017-01-25 17:04] LABS: BILIRUBIN, DIRECT <0.1 mg/dL (0.0-0.2); BILIRUBIN,INDIRECT 1.7 mg/dL (0.0-0.9); GLUCOSE FASTING 577 mg/dL (70-110)
[2017-01-25 17:05] LABS: BETA HYDROXYBUTYRATE 13.87 MMOL/L (0.02-0.27)
[2017-01-25 19:58] LABS: URINE SOURCE CLEAN CATCH
[2017-01-25 20:05] LABS: URINE APPEARANCE CLEAR; URINE BILIRUBIN NEG (NEG); URINE BLOOD NEG (NEG); URINE COLOR YELLOW; URINE GLUCOSE >1000 MG/DL (NEG); URINE KETONE 3+ (NEG); URINE LEUKOCYTE ESTERASE NEG (NEG); URINE NITRATE NEG (NEG); URINE PROTEIN NEG (NEG); URINE SPECIFIC GRAVITY 1.042 (1.003-1.035); URINE UROBILINOGEN 0.2 MG/DL (NEG)
[2017-01-25 20:10] LABS: CULTURE INDICATED? NO
[2017-01-26 00:58] LABS: BUN/CREATININE RATIO 16.66; CALCIUM SERUM 9.2 mg/dL (8.4-10.2); CREATININE SERUM 0.9 mg/dL (0.6-1.4); GLOM FILT RATE Estimated 104.2 mL/min (>60); POTASSIUM 3.1 mmol/L (3.5-5.1)
[2017-01-26 05:06] LABS: BUN/CREATININE RATIO 21.42; CALCIUM SERUM 9.2 mg/dL (8.4-10.2); CREATININE SERUM 0.7 mg/dL (0.6-1.4); GLOM FILT RATE Estimated 115.6 mL/min (>60); PHOSPHOROUS 2.2 mg/dL (2.5-4.6); POTASSIUM 3.5 mmol/L (3.5-5.1)
[2017-01-26 11:42] LABS: CALCIUM SERUM 9.1 mg/dL (8.4-10.2); CREATININE SERUM 0.5 mg/dL (0.6-1.4); GLOM FILT RATE Estimated 132.8 mL/min (>60); POTASSIUM 3.3 mmol/L (3.5-5.1)
[2017-01-26 19:04] LABS: BASOPHIL# 0.1 X10e3 (0-0.3); BASOPHIL% 0.7 % (0-2.5); EOSINOPHIL# 0.2 X10e3 (0-0.7); HEMATOCRIT 40.6 % (38.0-50.0); LYMPHOCYTE# 2.5 X10e3 (1.0-3.5); LYMPHOCYTE% 15.9 % (17.0-45.0); MEAN CELL VOLUME 92.1 FL (83-96); MEAN CORPUSCULAR HEMOGLOBIN 30.9 PG (28-34); MEAN CORPUSCULAR HGB CONC 33.5 g/dL (30-36); MEAN PLATELET VOLUME 7.5 FL (6.5-11.5); MONOCYTE# 1.5 X10e3 (0-1.0); MONOCYTE% 9.6 % (3.0-12.0); NEUTROPHIL# 11.6 X10e3 (1.5-7.1); NEUTROPHIL% 72.8 % (40-75); PLATELET COUNT 354 X10e3 (140-420); RED BLOOD COUNT 4.41 X10e (3.90-5.60); RED CELL DISTRIBUTION WIDTH 13.1 % (11.0-15.5)
[2017-01-26 19:06] LABS: DIFF IND YES; HEMOGLOBIN 13.6 gm/dL (13.0-16.0); WHITE BLOOD COUNT 15.9 X10e3 (4.0-10.5)
[2017-01-26 19:27] LABS: PLATELET ESTIMATE NORMAL (NORMAL)
[2017-01-27 20:38] LABS: BUN/CREATININE RATIO 21.66; CALCIUM SERUM 8.7 mg/dL (8.4-10.2); CREATININE SERUM 0.6 mg/dL (0.6-1.4); GLOM FILT RATE Estimated 123.2 mL/min (>60); POTASSIUM 3.6 mmol/L (3.5-5.1)
[2017-04-27] MEDS ORDERED: LORTAB 7.5-3251 EACH PO (11:15)
[2017-04-27] MEDS ORDERED: PATIENT'S PHARMACY (11:15)
[2017-04-27] MEDS ORDERED: ASPIRIN81 M2 PO (11:15)
[2017-04-27] MEDS ORDERED: PROTONIX PO (11:15)
[2017-04-27] MEDS ORDERED: ZYPREXA PO (11:16)
[2017-04-27] MEDS ORDERED: PRAVACHOL PO (11:16)
[2017-04-27] MEDS ORDERED: BASAGLAR K100 UNIT/1 SUBQ (11:16)
[2017-04-27] MEDS ORDERED: HUMALOG KW100 UNIT/1 SUBQ (11:16)
[2017-04-27] MEDS ORDERED: GABAPENTIN400 M2 PO (11:16)
[2017-04-27] MEDS ORDERED: DULOXETINE HCL60 M1 PO (11:16)
== END 2017-01-27 22:10 | disposition home or self-care (01) | DRG 638 ==
LOC: CED 15:12 → C3A PCU 18:30 → CEDOF 18:30 → CED 18:43 → CICCU2 21:55 → CEDOF 21:55 → C3A PCU 01-26 20:54
PROVIDERS: Emergency Medicine; Hospitalist
DX: E10.10 Type 1 diabetes mellitus with ketoacidosis without coma (principal); E87.1 Hypo-osmolality and hyponatremia; E44.0 Moderate protein-calorie malnutrition; E10.42 Type 1 diabetes mellitus with diabetic polyneuropathy; Z68.1 Body mass index [BMI] 19.9 or less, adult; Z79.4 Long term (current) use of insulin; F32.9 Major depressive disorder, single episode, unspecified; F41.9 Anxiety disorder, unspecified; E78.5 Hyperlipidemia, unspecified; J44.9 Chronic obstructive pulmonary disease, unspecified; F17.210 Nicotine dependence, cigarettes, uncomplicated; F43.10 Post-traumatic stress disorder, unspecified; R10.9 Unspecified abdominal pain; Z90.49 Acquired absence of other specified parts of digestive tract; F90.8 Attention-deficit hyperactivity disorder, other type; E87.6 Hypokalemia
CPT/HCPCS: 36415; 71010; 74177; 80048; 80076; 81003; 82010; 82947; 83036; 83690; 84100; 84132; 85025; 87040; 93005; 96361; 96374; 96375; 99291; J1170; J1815; J2270; J2405; Q9967

== ENCOUNTER 2017-02-04 16:28 | Inpatient (IN) | payer OTHER ==
--- NOTE | ~2017-02-04 | CO ---
Unit #: [id number] #: [id number] Patient: LACHELLE VIDES [id number] [address] [place], [place] [address] [id number] MR#: [id number] NAME: LACHELLE VIDES ROOM: 227 Age: 41 Sex: M Admission Date: 02/04/2017 : 1975 Attending Physician: Radha Mckay M.D. Primary Care Physician: Octaviano Webster M.D. Consultation Date: 02/06/2017 CONSULTATION REPORT REASON FOR CONSULTATION Diabetes ketoacidosis. HISTORY OF PRESENT ILLNESS This is a 41-year-old male, who has a history of type 1 diabetes mellitus, poor compliance, who presented to the emergency room for not feeling well, having nausea, vomiting, and abdominal pain, and high blood sugars. He was found to be in diabetes ketoacidosis, admitted to the unit bed and initiated on insulin drip and IV fluids, and consult has been called. PAST MEDICAL HISTORY Type 1 diabetes mellitus, poorly compliant; history of diabetes ketoacidosis; peripheral neuropathy, depression; ADHD. PAST SURGICAL HISTORY Left shoulder surgery, left foot plantar surgery, EGD, colonoscopy, cholecystectomy. SOCIAL HISTORY Lives at home with the parents. Continues to smoke marijuana. Declines alcohol. FAMILY HISTORY Remarkable for diabetes mellitus and coronary artery disease. HOME MEDICATIONS List is reviewed, supposed to be taking Lantus 15 units subcu b.i.d., Humalog 4 units with each meal, Protonix 20 mg daily, pravastatin 20 mg in the evening, gabapentin, probiotic, Cymbalta, Zyprexa. REVIEW OF SYSTEMS 12-point review of system was completed. The patient denies any nausea, vomiting, or abdominal pain at this point. No urgency, frequency, or dysuria. No fever or chills. No neurological deficits. PHYSICAL EXAMINATION GENERAL: He is awake, alert, oriented to time, place, and person. VITAL SIGNS: Stable. He is afebrile, hemodynamically blood pressure is 116/79. HEENT: EOMI. Pupils equally reactive to light. NECK: Supple. No thyromegaly noted. CHEST: Good air entry. CVS: Regular rhythm. No murmurs. ABDOMEN: Soft and nontender. Bowel sounds positive. Unit #: [id number] #: [id number] Patient: LACHELLE VIDES EXTREMITIES: No edema noted. NEUROLOGIC: Nonfocal. DIAGNOSTIC STUDIES LABORATORY RESULTS: On admission, glucose 539, CO2 of 10, sodium 126, creatinine of 1.3. ASSESSMENT 1. Diabetes ketoacidosis, which has resolved at this point. 2. Hyponatremia, improving. 3. Hypokalemia, improving. PLAN Last night, I switched the patient to subcu insulin with Levemir 15 units subcu twice daily and NovoLog 4 units each meal. Diet has been advised to have consistent carb diet with 60 g carbs per meal. Accu-Cheks a.c. and h.s. Cover with supplemental insulin as needed. Thanks again for consultation. Dictated by... Yamileth Quick/bernardo TD: 02/06/2017 14:54 JOB #: [id number] CONSULTATION REPORT Page 1 of 1 X Bita Henao MD X CONSULTATION REPORT
--- NOTE | ~2017-02-04 | EKG ---
PATIENT: LACHELLE VIDES UNIT #: [id number] Ventricular Rate: 123 BPM Atrial Rate: 131 BPM QRS Duration: 74 ms Q-T Interval: 418 ms QTC Calculation(Bezet): 598 ms Calculated R Humble: 79 degrees Calculated T Humble: 70 degrees Diagnosis Line: Sinus tachycardia Diagnosis Line: Low voltage QRS Diagnosis Line: Septal infarct , age undetermined Diagnosis Line: Abnormal ECG Diagnosis Line: When compared with ECG of 26-JAN-2017 00:29, Diagnosis Line: Junctional rhythm has replaced Sinus rhythm Diagnosis Line: ST elevation now present in Inferior leads Diagnosis Line: Nonspecific T wave abnormality no longer evident Diagnosis Line: in Inferior leads Diagnosis Line: Nonspecific T wave abnormality no longer evident Diagnosis Line: in Lateral leads Diagnosis Line: Confirmed by ROSE SETHI MD ([id number]) on Diagnosis Line: 02/06/2017 11:03:48 AM INTERPRETING MD: NAVDEEP SOUZA
--- NOTE | ~2017-02-04 | A ---
[facility] Nutrition Therapy DATE: 02/06/17 Patient: LACHELLE PELAYOKACYGURJIT Physician: EKATERINA Address: [address] [place] [address] DRIVE Room/Bed: [address], Zip: [place] [address] Admit Date: 02/04/17 Date of : [birth year] Height: 6 0 Weight: 144 65.5 NUTRITIONAL ASSESSMENT: REASON: LOW BMI, DKA 41 yo male admitted for DKA, n/v and abdominal pain PMH: type 1 DM, peripheral neuropathy, GERD, h/o drug abuse, PTSD, bipolar disorder, pancreatitis, HLD, recent cholecystectomy, seizure disorder, COPD Anthropometrics: Ht: 6'0" Wt: 61 kg BMI: 18.2 IBW: 80.9 kg, 75% IBW Labs: Na+ 130 Gluc 199 BUN 7 Creat 0.5 Accuchecks 124-203 Meds: Novolog, KCl, levemir, protonix, MgSO4, zofran, novolin I/O & Bowel function: 5182/1402, last BM 02/06 Skin Integrity: Lap site scars- abdomen Emerson- abdomen Abrasion/ scar LFA Edema: none noted Estimated Nutrition Needs: Increased due to low body weight Diet: Consistent carbohydrate Assessment: Chart reviewed, events noted. 41 yo male admitted for DKA, n/v and abdominal pain. RD at [facility] assessed the pt on 01/26/17 for low BMI and DKA during a recent previous admission. Pt has a h/o type 1 DM and multiple previous admissions for DKA. Pt was educated on 12/14/[address] on DM/ consistent carbohydrate diet. RD spoke with the pt at bedside today. Pt reports having significant weight loss starting with his previous hospitalization a couple weeks ago. Pt consumed ~50-60% of his breakfast. Pt is unsure about his exact amount of weight loss, but he reports that he previously weighed 150#, indicating ~15# weight loss compared to his admission weight. RD offered diet education, and the pt asked for printed materials that he could review himself. RD provided printed materials, and provided brief overview of the information. Pt declined Glucerna supplements, but requested that he be able to order a snack at hs. RD will order. Dx: Impaired glycemic control RT likely noncompliance AEB DKA, accuchecks 124-203. 2) Underweight RT recent hospitalizations, decreased appetite prior to admission AEB n/v and abdominal pain upon admission, BMI 18.2, 75% IBW, pt reported weight loss. [facility] Nutrition Therapy DATE: 02/06/17 Patient: LACHELLE ALTAMIRANO PEEWEE Physician: EKATERINA Address: [address] [place] [address] Room/Bed: [address], Zip: [place] [address] Admit Date: 02/04/17 Date of : [birth year] Height: 6 0 Weight: 144 65.5 Intervention: 1. Diet education 2. Snack at hs 3. CCD Monitoring, Evaluation and Goals: 1. Oral intake; tolerate >50% of meals 2. Weight; prevent further weight loss, promote weight gain towards healthy BMI range 3. GI; promote regular GI function 4. Improve labs; glucose, Na+ Recommendations: 1. Continue consistent carbohydrate diet and add snack at hs. 2. Glucerna BID if requested by the pt (declined when offered by RD). 3. Encourage consistent carbohydrate diet compliance. Pt would benefit from seeing an outpatient RD or attending free DM classes at his local health department. Pt is at mild-moderate nutritional risk. Respectfully, FIOR DUDLEY RD, LD Food and Nutritional Services [facility] cc: client file
--- NOTE | ~2017-02-04 | DS ---
Unit #: [id number] #: [id number] Patient: LACHELLE BUTLER [id number] [address] [address] [id number] MR#: [id number] NAME: LACHELLE BUTLER ROOM: 227 Age: 41 Sex: M Admission Date: 02/04/2017 : 1975 Discharge Date: 02/07/2017 Attending Physician: Radha Mckay M.D. Primary Care Physician: Octaviano Webster M.D. DISCHARGE SUMMARY FINAL DIAGNOSES 1. Diabetic ketoacidosis which is resolved. 2. Uncontrolled diabetes mellitus type 1. 3. Hypokalemia, resolved. 4. Hyponatremia, resolved. 5. Abdominal pain, improved. 6. Nausea and vomiting, resolved. 7. History of depression. 8. History of peripheral neuropathy. 9. History of ADHD. 10. Posttraumatic stress disorder. DISCHARGE MEDICATIONS 1. Gabapentin. Continue home dose of 800 mg t.i.d. 2. Cymbalta 60 mg daily. 3. Promethazine on a p.r.n. basis. 4. Pravastatin 20 mg daily. 5. Levemir 15 units subcutaneous b.i.d. 6. NovoLog 4 units subcutaneous t.i.d. 7. Aspirin 81 mg daily. 8. Lactobacillus q.a.m. 9. Protonix 20 mg daily. 10. Zyprexa 10 mg b.i.d., home dose. CONSULTANTS Dr. Henao from endocrinology services. DIAGNOSTIC DATA LABORATORY: On discharge, potassium 3.8, magnesium 1.8, blood cultures negative. Sodium 130, potassium 4.6, BUN 7, creatinine 0.5, white blood cell count 11.4, hemoglobin 13.8, hematocrit 41.9, platelets 347. On admission, the patient's sodium was 126, bicarb 10, glucose 539, BUN 18 and creatinine 1.3. HOSPITAL COURSE Mr. Lachelle Butler is a 41-year-old male who has had multiple admissions to the hospital. He was admitted with nausea, vomiting and abdominal pain and was diagnosed with acute diabetic ketoacidosis. The patient was admitted to the ICU. Insulin by diabetic ketoacidosis protocol was started. The patient recovered pretty fast, within 24 hours. Most likely there are a lot of noncompliance issues. Discussed with Dr. Henao. The patient is being discharged home as he is stable. The patient has been advised to follow up with his primary care physician in one week. Diet counseling has been done. The patient has been advised to be compliant Unit #: [id number] #: [id number] Patient: LACHELLE BUTLER with the medications. PHYSICAL EXAMINATION VITALS: Blood pressure 130/88, respiratory rate 18, pulse 94, temperature 98.2, oxygen saturation 100%. CHEST: Fair air entry. HEART: Regular rhythm. ABDOMEN: Soft. DISPOSITION The patient is being discharged home in stable condition. MEDICATIONS As per medication reconciliation. FOLLOWUP 1. Follow up with primary care provider in one week. 2. Follow up with endocrinology as scheduled. Dictated by... Yamileth Valencia TD: 02/08/2017 09:38 JOB #: [id number] DISCHARGE SUMMARY Page 1 of 1 X Radha Mckay MD X DISCHARGE SUMMARY
--- NOTE | ~2017-02-04 | CR72 ---
[facility] A Service of [facility] RADIOLOGY TEXT RESULTS PATIENT: LACHELLE VIDES LOCATION: CICCU3 CICCU3-16 : [birth year] UNIT #: [id number] AGE: [address]: Radha Mckay MD SEX: M ORDER DR: [id number] [place] [id number] I MR#: [id number] Acc #: [id number] NAME: LACHELLE VIDES : 1975 SEX: M STUDY DATE/TIME: 02/04/2017 19:32 UNIT: SEDOF ROOM: [facility] STUDY DESCRIPTION: CR Chest Single View Portable Attending Physician: Radha Mckay M.D. Ordering Physician: Omar Reyes M.D. Primary Care Physician: Octaviano Webster M.D. MEDICAL IMAGING REPORT This report is preliminary unless electronic signature is present. EXAM Portable chest, 02/04/2017. HISTORY Cough, chest congestion, nausea, vomiting, and diarrhea and shortness of breath today. No known injury. FINDINGS A single AP portable view of the chest shows both lungs to be clear. The heart is normal in size. The mediastinal contour is normal. No significant bone abnormalities are seen. IMPRESSION Normal portable chest. Dictated by... Arash Gastelum M.D. THIS IS AN ELECTRONICALLY VERIFIED REPORT Arash Gastelum M.D. at 02/05/2017 2:15 PM MAGDALENA/harman TD: 02/05/2017 03:45 JOB #: [id number] MEDICAL IMAGING REPORT Page 1 of 1
--- NOTE | ~2017-02-04 | HP ---
Unit #: [id number] #: [id number] Patient: LACHELLE VIDES [id number] [address] [place], [place] [address] [id number] I MR#: [id number] NAME: LACHELLE VIDES [facility] Age[facility] 41 Sex: M Admission Date: 02/04/2017 : 1975 Attending Physician: Radha Mckay M.D. Primary Care Physician: Octaviano Webster M.D. HISTORY AND PHYSICAL CHIEF COMPLAINT Nausea, vomiting and abdominal pain and elevated sugars. HISTORY OF PRESENT ILLNESS Mr. Burns is a 41-year-old male who has had multiple admissions to the hospital for the same kind of reason. The patient was last admitted in January and discharged on 01/27/2017. Presentation was diabetic ketoacidosis. The patient had cholecystectomy done on 01/20/2017. According to the patient, he was doing very well until Monday. On Monday he went to see his primary care provider, Dr. Webster, and was doing okay. On Monday he woke up and his sugars were very high. Then on Monday the whole day he was trying to control with sliding scale. It would not and on Monday he started vomiting. He has been vomiting for the last three days. He could not tolerate any food. He could not control his sugars. He started having abdominal pain. Level of abdominal pain is 6-7/10. The patient's abdominal pain has improved. The last vomiting was yesterday, but he is still having some cramps. No complaint of fever, chills or rigors. No complaint of diarrhea. No complaint of chest pain. PAST MEDICAL HISTORY 1. History of diabetes mellitus type 1. 2. History of multiple time diabetic ketoacidosis. 3. Peripheral neuropathy. 4. Depression. 5. ADHD. 6. Posttraumatic stress disorder. PAST SURGICAL HISTORY 1. History of left shoulder surgery. 2. History of left foot plantar surgery. 3. History of EGD and colonoscopy. 4. History of cholecystectomy on 01/20/2017. SOCIAL HISTORY The patient lives at home with his parents who are elderly. He continues to smoke a half pack per day. No history of alcohol abuse or drug abuse. FAMILY HISTORY Unremarkable. ALLERGIES Codeine and Levaquin. HOME MEDICATIONS Unit #: [id number] #: [id number] Patient: LACHELLE VIDES 1. Lantus 15 units subcutaneous at bedtime. 2. Humalog 4 units subcutaneous t.i.d. 3. Protonix 20 mg daily. 4. Pravastatin 20 mg q. evening. 5. Low dose aspirin 81 mg daily. 6. Phenergan 25 mg p.r.n. 7. Gabapentin 800 mg t.i.d. 8. Probiotic daily. 9. Cymbalta 60 mg daily. 10. Zyprexa 10 mg b.i.d. REVIEW OF SYSTEMS As per history of present illness. PHYSICAL EXAMINATION GENERAL: The patient has been examined in the ICU, room 16. VITALS: Blood pressure 116/67, respiratory rate 16, pulse 98, temperature 98.0, oxygen saturation 98%. HEENT: Head is normocephalic. Eye movements are normal. No pale conjunctivae. NECK: Supple. No thyromegaly. No bruits. CHEST: Fair air entry. No additional sounds. HEART: S1 and S2 positive. Regular rhythm. ABDOMEN: Soft. Mild tenderness is present. Scar from laparoscopic cholecystectomy is present. EXTREMITIES: Negative edema. Pulses are palpable. NEUROLOGIC: The patient is awake and alert, oriented times three. No focal neurological deficits. DIAGNOSTIC STUDIES LABORATORY: White blood cell count 11.1, hemoglobin 16.7, hematocrit 49.1, platelet count 495. Troponin less than 0.05. Sodium 126, potassium 3.8, bicarb 10, glucose 539, BUN 18, creatinine 1.3. Amylase and lipase are in normal range. Serum acetone elevated to 5. ASSESSMENT The patient is being admitted to the ICU with the diagnoses of 1. Diabetic ketoacidosis. 2. Nausea and vomiting. 3. Abdominal pain. 4. History of depression. 5. History of hyperlipidemia. 6. History of posttraumatic stress disorder. PLAN Admit to the ICU. Dr. Henao has been consulted. Insulin drip has been started. IV Protonix 40 mg daily. Potassium will be replaced. IV Zofran 4 mg q.6 h. p.r.n. IV Dilaudid 1 mg q.4 h. p.r.n. Home medications have been reviewed. The patient has been advised to be compliant with diet and insulin treatment. Please refer to progress note for further orders. Tobacco cessation counseling done. Dictated by Radha Mckay M.D. KN/gz Unit #: [id number] #: [id number] Patient: LACHELLE VIDES TD: 02/05/2017 12:46 JOB #: [id number] HISTORY AND PHYSICAL Page 1 of 1 X Radha Mckay MD X HISTORY AND PHYSICAL
[2017-02-04 17:34] LABS: ARTERIAL BLD GAS O2 SATURATION 53.5 % (90.0-100.0); ARTERIAL BLOOD GAS CARBOXY HB 1.5 %sat (0.0-9.0); ARTERIAL BLOOD GAS HCO3 10.2 mmol/L
[2017-02-04 17:37] LABS: BASOPHIL# 0.1 X10e3 (0-0.3); BASOPHIL% 1.2 % (0-2.5); EOSINOPHIL% 0.2 % (0.0-7.0); HEMATOCRIT 49.1 % (38.0-50.0); HEMOGLOBIN 16.7 gm/dL (13.0-16.0); LYMPHOCYTE# 2.2 X10e3 (1.0-3.5); LYMPHOCYTE% 19.7 % (17.0-45.0); MEAN CELL VOLUME 94.2 FL (83-96); MEAN PLATELET VOLUME 7.8 FL (6.5-11.5); MONOCYTE# 0.9 X10e3 (0-1.0); MONOCYTE% 8.4 % (3.0-12.0); NEUTROPHIL# 7.8 X10e3 (1.5-7.1); NEUTROPHIL% 70.5 % (40-75); PLATELET COUNT 495 X10e3 (140-420); RED BLOOD COUNT 5.22 X10e (3.90-5.60); RED CELL DISTRIBUTION WIDTH 13.3 % (11.0-15.5); WHITE BLOOD COUNT 11.1 X10e3 (4.0-10.5)
[2017-02-04 17:39] LABS: ARTERIAL BLOOD GAS MET HB -0.1 %sat (0.0-2.0)
[2017-02-04 17:40] LABS: ARTERIAL DRAW? NO
[2017-02-04 17:41] LABS: DIFF IND NO
[2017-02-04 17:48] LABS: POC - CKMB 1.2 ng/mL (0.0-7.9); POC - TROPONIN <0.05 ng/mL (<=0.05)
[2017-02-04 17:50] LABS: ALBUMIN SERUM 5.3 g/dL (3.5-5.0); ALKALINE PHOSPHATASE 132 U/L (32-92); ALT (SGPT) 26 U/L (10-40); AMYLASE 15 U/L (0-46); AST (SGOT) 17 U/L (10-42); BLOOD UREA NITROGEN 18 mg/dL (9-23); BUN/CREATININE RATIO 13.84; CALCIUM SERUM 9.1 mg/dL (8.4-10.2); CHLORIDE 81 mmol/L (100-111); CREATININE SERUM 1.3 mg/dL (0.6-1.4); GLOM FILT RATE Estimated 66.9 mL/min (>60); LIPASE 22 U/L (22-51); POTASSIUM 3.8 mmol/L (3.5-5.1); SODIUM 126 mmol/L (135-145)
[2017-02-04 17:53] LABS: BILIRUBIN, DIRECT <0.1 mg/dL (0.0-0.2); BILIRUBIN,INDIRECT 1.9 mg/dL (0.0-0.9); CARBON DIOXIDE 10 mmol/L (22-31); GLUCOSE FASTING 539 mg/dL (70-110)
[2017-02-04 21:23] LABS: URINE SOURCE CLEAN CATCH
[2017-02-04 21:25] LABS: URINE APPEARANCE CLEAR; URINE BILIRUBIN NEG (NEG); URINE BLOOD NEG (NEG); URINE COLOR YELLOW; URINE GLUCOSE 100 MG/DL (NORM); URINE LEUKOCYTE ESTERASE NEG (NEG); URINE NITRATE NEG (NEG); URINE PH 5.5 (5-8); URINE PROTEIN NEG (NEG); URINE SPECIFIC GRAVITY >=1.030 (1.003-1.035); URINE UROBILINOGEN 0.2 MG/DL (NORM)
[2017-02-04 21:30] LABS: MICRO INDICATED? NO; URINE KETONE 3+ (NEG)
[2017-02-05 02:49] LABS: CREATININE SERUM 0.6 mg/dL (0.6-1.4); GLOM FILT RATE Estimated 123.2 mL/min (>60); PHOSPHOROUS 1.7 mg/dL (2.5-4.6)
[2017-02-05 02:51] LABS: POTASSIUM 2.8 mmol/L (3.5-5.1)
[2017-02-05 09:48] LABS: CREATININE SERUM 0.5 mg/dL (0.6-1.4); GLOM FILT RATE Estimated 132.8 mL/min (>60)
[2017-02-05 14:42] LABS: BUN/CREATININE RATIO 27.5; CALCIUM SERUM 8.3 mg/dL (8.4-10.2); CREATININE SERUM 0.4 mg/dL (0.6-1.4); GLOM FILT RATE Estimated 145.5 mL/min (>60); PHOSPHOROUS 1.8 mg/dL (2.5-4.6)
[2017-02-05 14:46] LABS: POTASSIUM 3.1 mmol/L (3.5-5.1)
[2017-02-05 20:52] LABS: CALCIUM SERUM 8.2 mg/dL (8.4-10.2); CREATININE SERUM 0.4 mg/dL (0.6-1.4); GLOM FILT RATE Estimated 145.5 mL/min (>60)
[2017-02-05 20:55] LABS: POTASSIUM 2.7 mmol/L (3.5-5.1)
[2017-02-06 06:04] LABS: BASOPHIL# 0.1 X10e3 (0-0.3); BASOPHIL% 1.1 % (0-2.5); EOSINOPHIL# 0.3 X10e3 (0-0.7); EOSINOPHIL% 2.4 % (0.0-7.0); HEMATOCRIT 41.9 % (38.0-50.0); LYMPHOCYTE# 2.5 X10e3 (1.0-3.5); LYMPHOCYTE% 22.3 % (17.0-45.0); MEAN CELL VOLUME 93.4 FL (83-96); MEAN CORPUSCULAR HEMOGLOBIN 30.7 PG (28-34); MEAN CORPUSCULAR HGB CONC 32.9 g/dL (30-36); MEAN PLATELET VOLUME 7.9 FL (6.5-11.5); MONOCYTE% 8.5 % (3.0-12.0); NEUTROPHIL# 7.5 X10e3 (1.5-7.1); NEUTROPHIL% 65.7 % (40-75); PLATELET COUNT 347 X10e3 (140-420); RED BLOOD COUNT 4.48 X10e (3.90-5.60); RED CELL DISTRIBUTION WIDTH 12.9 % (11.0-15.5); WHITE BLOOD COUNT 11.4 X10e3 (4.0-10.5)
[2017-02-06 06:22] LABS: DIFF IND NO; HEMOGLOBIN 13.8 gm/dL (13.0-16.0)
[2017-02-06 06:36] LABS: CALCIUM SERUM 8.7 mg/dL (8.4-10.2); CREATININE SERUM 0.5 mg/dL (0.6-1.4); GLOM FILT RATE Estimated 132.8 mL/min (>60); MAGNESIUM 1.8 mg/dL (1.6-3.0); POTASSIUM 4.6 mmol/L (3.5-5.1)
[2017-02-07 06:52] LABS: MAGNESIUM 1.8 mg/dL (1.6-3.0); POTASSIUM 3.8 mmol/L (3.5-5.1)
[2017-02-07] MEDS ORDERED: LEVEMIR INJ (10:53)
[2017-02-07] MEDS ORDERED: NOVOLIN R100 UNITS/ INJ (10:54)
[2017-02-07] MEDS ORDERED: PHENERGAN12.5 MG/0. PO (11:03)
[2017-04-27] MEDS ORDERED: PROTONIX PO (11:15)
[2017-04-27] MEDS ORDERED: PATIENT'S PHARMACY (11:15)
[2017-04-27] MEDS ORDERED: LORTAB 7.5-3251 EACH PO (11:15)
[2017-04-27] MEDS ORDERED: ASPIRIN81 M2 PO (11:15)
[2017-04-27] MEDS ORDERED: PRAVACHOL PO (11:16)
[2017-04-27] MEDS ORDERED: BASAGLAR K100 UNIT/1 SUBQ (11:16)
[2017-04-27] MEDS ORDERED: HUMALOG KW100 UNIT/1 SUBQ (11:16)
[2017-04-27] MEDS ORDERED: DULOXETINE HCL60 M1 PO (11:16)
[2017-04-27] MEDS ORDERED: GABAPENTIN400 M2 PO (11:16)
[2017-04-27] MEDS ORDERED: ZYPREXA PO (11:16)
== END 2017-02-07 11:37 | disposition home or self-care (01) | DRG 638 ==
LOC: SED 16:28 → SEDOF 18:33 → SED 18:33 → CICCU3 18:33 → SEDOF 18:35 → CICCU3 02-05 01:23 → C2A 02-06 16:50
PROVIDERS: Emergency Medicine; Physician Assistant Medical
DX: E10.10 Type 1 diabetes mellitus with ketoacidosis without coma (principal); E87.1 Hypo-osmolality and hyponatremia; E44.0 Moderate protein-calorie malnutrition; E10.42 Type 1 diabetes mellitus with diabetic polyneuropathy; Z68.1 Body mass index [BMI] 19.9 or less, adult; E87.6 Hypokalemia; Z79.4 Long term (current) use of insulin; R10.9 Unspecified abdominal pain; F90.9 Attention-deficit hyperactivity disorder, unspecified type; F43.10 Post-traumatic stress disorder, unspecified; Z91.19 Patient's noncompliance with other medical treatment and regimen; F32.9 Major depressive disorder, single episode, unspecified; F12.10 Cannabis abuse, uncomplicated; Z83.3 Family history of diabetes mellitus; Z82.49 Family history of ischemic heart disease and other diseases of the circulatory system
CPT/HCPCS: 71010; 80048; 80076; 81003; 82010; 82150; 82553; 82803; 82947; 83690; 83735; 84100; 84132; 84484; 85025; 87040; 93005; 96361; 96374; 96375; 99291; C9113; J1170; J1815; J2270; J2405; J2550; J3475

== ENCOUNTER 2017-03-08 11:55 | Inpatient (IN) | payer OTHER ==
[~2017-03-08] VITALS: Ht 182.9 cm; Wt 58.5 kg
--- NOTE | ~2017-03-08 | CO ---
Unit #: [id number] #: [id number] Patient: LACHELLE VIDES [id number] [facility] [address] [facility]. [place], [place] [address] [id number] I MR#: [id number] NAME: LACHELLE VIDES ROOM: 239 Age: 41 Sex: M Admission Date: 03/08/2017 : 1975 Attending Physician: Saul Pacheco M.D. Primary Care Physician: Octaviano Webster M.D. Consultation Date: 03/11/2017 CONSULTATION REPORT REASON FOR CONSULTATION Followup. DISCUSSION Mr. Burns is a 41-year-old male, seen on 03/11/2017 at [facility] in room 239, bed 1. The patient dressed in hospital attire, lying comfortably in bed. The patient reports medication is helping him. The patient was started on his Cymbalta and Zyprexa combination, tolerating medication fairly well. Complete review of systems unremarkable. The patient denied any side effects from medication. The patient reports sleeping better, decrease in anxiety. The patient's vital signs; temperature 98.1, pulse 86, respirations 13, and blood pressure 103/64, oxygen saturation 97%. MENTAL STATUS EXAMINATION General appearance; the patient dressed casually, lying comfortably in bed. Attention span and concentration, fair. Speech, regular rate and coherent. Oriented in time, place, and person. Mood and affect, labile. Thought process, circumstantial. The patient denied any suicidal or homicidal ideation, but still having symptoms of depression. Recent and remote memory, fair. Language, intact. Fund of knowledge, fair. Insight and judgment, fair to slightly impaired. DIAGNOSES Psychiatric: Major depressive disorder, recurrent, severe, F33.2. ASSESSMENT/PLAN 1. Supportive psychotherapy and psychoeducation provided to the patient. 2. Educated about benefits and side effects of medication and course and prognosis of illness. 3. Advised to continue with current medication with a plan to consider adjusting the dosage of Zyprexa and Cymbalta if needed. Please feel free to call if any questions telephone #[phone]. Dictated by... Aiden Trujillo M.D. OMAR/bernardo TD: 03/12/2017 13:18 JOB #: [id number] Unit #: [id number] #: [id number] Patient: LACHELLE VIDES CONSULTATION REPORT Page 1 of 1 X Aiden Trujillo MD CONSULTATION REPORT
--- NOTE | ~2017-03-08 | CT4 ---
[facility] A Service of [facility] RADIOLOGY TEXT RESULTS PATIENT: LACHELLE VIDES LOCATION: [facility] : [birth year] UNIT #: [id number] AGE: [address]: Salu Pacheco MD SEX: M ORDER DR: [id number] [place] [id number] [facility]. [place], [place] [address] [id number] MR#: [id number] Acc #: [id number] NAME: LACHELLE VIDES : 1975 SEX: M STUDY DATE/TIME: 03/12/2017 9:41 UNIT: [facility] ROOM: 239 STUDY DESCRIPTION: CT Abd and Pelv Wo Cont Attending Physician: Saul Pacheco M.D. Ordering Physician: Miah Maki M.D. Primary Care Physician: Octaviano Webster M.D. MEDICAL IMAGING REPORT This report is preliminary unless electronic signature is present EXAM CT abdomen and pelvis without contrast INDICATION Left-sided abdominal pain with nausea and vomiting for the past 9 days. Follow up small bowel obstruction. PROCEDURE Unenhanced CT of the abdomen and pelvis. This CT examination was performed with one or more of the following radiation dose reduction techniques: automatic exposure control, adjustment of mA and/or kV according to patient size, and iterative reconstruction. COMPARISON 03/08/2017. FINDINGS ABDOMEN WITHOUT CONTRAST: Linear atelectasis or scarring in the dependent lung bases. Liver, kidneys, adrenal glands, pancreas are unremarkable. Previous cholecystectomy. The bowel loops are nondilated. Appendix is normal. PELVIS WITHOUT CONTRAST: No pelvic mass or fluid. No aggressive appearing bone lesion. IMPRESSION No acute findings. No evidence for obstruction. The bowel loops are nondilated. Appendix is normal. Dictated by... [facility] A Service of [facility] RADIOLOGY TEXT RESULTS PATIENT: LACHELLE VIDES LOCATION: [facility] : 71 UNIT #: [id number] AGE: [address]: Saul Pacheco MD SEX: M ORDER DR: Dmitri Paula M.D. THIS IS AN ELECTRONICALLY VERIFIED REPORT Dmitri Paula M.D. at 03/13/2017 8:15 AM AYAKA/ying TD: 03/12/2017 10:11 JOB #: [id number] MEDICAL IMAGING REPORT Page 1 of 1 COPY
--- NOTE | ~2017-03-08 | A ---
[facility] Nutrition Therapy DATE: 03/09/17 Patient: LACHELLE PELAYOKACYGURJIT Physician: ASPEN Address: [address] Room/Bed: [address], Zip: [place] [address] Admit Date: 03/08/17 Date of : [birth year] Height: 6 0 Weight: 139 63.5 NUTRITIONAL ASSESSMENT: REASON: DKA, NPO in ICU 41 yo male admitted for DKA and abdominal pain PMH: COPD, type 1 DM, DKA, peripheral neuropathy, GERD, seizure disorder, h/o drug abuse, pancreatitis, HLD, c.diff, PTSD, cholecystectomy Anthropometrics: Ht: 6'0" wt: 63.5 kg BMI: 19.0 IBW: 80.9 kg, 78% IBW Labs: K+ 3.0 Gluc 128 Creat 0.5 Ca++ 8.2 Mg++ 1.2 Phos 1.1 Accuchecks 105-172 HgbA1C 14.7 Meds: IVF, insulin drip, MgSO4, KCl, D5%, novolin, D50%, zofran, protonix, NaCl I/O & Bowel function: 3774/550, last BM 03/08, partial SBO noted in CT Skin Integrity: no breakdown noted, no edema Diet: NPO Assessment: Chart reviewed, events noted. 41 yo male well known to RDs at [facility] admitted for DKA, diarrhea and abdominal pain. CT of the abdomen revealed a partial SBO per information in [facility]. Checking stool for C.diff. Pt is currently NPO, to have KUB today per RN report. Pt has been historically underweight with BMI ranging from 14-19, with current BMI of 19. Per weights in [facility], it appears the pt's weights have been stable and have actually increased. RD spoke with the pt at bedside. Pt reports that he has likely lost weight recently, however, he has gained weight since previous admissions. Pt is requesting clear liquids, and RD explained why he is NPO. Pt states "I am kind of hungry". Please see recommendations below. Dx: Inadequate protein-energy intake RT DKA protocol, partial SBO, clinical condition AEB NPO status, CT abdomen. 2) Underweight RT PMH AEB BMI 19.0, 78% IBW. Intervention: 1. Advance diet once medically feasible Monitoring, Evaluation and Goals: 1. Nutrition; advance to oral diet vs. nutrition support [facility] Nutrition Therapy DATE: 03/09/17 Patient: LACHELLE PELAYOKACYGURJIT Physician: ASPEN Address: [address] Room/Bed: [address], Zip: [place] [address] Admit Date: 03/08/17 Date of : [birth year] Height: 6 0 Weight: 139 63.5 2. Improve labs; K+, gluc, Mg++ 3. Weight; prevent weight loss, promote weight maintenance 4. GI; promote regular GI function Recommendations: 1. Once medically feasible, advance the pt to a clear liquid diet as tolerated + Ensure clear BID. 2. If the pt is able to tolerate clear liquids, advance to a consistent carbohydrate diet + Glucerna BID. Further dietary restrictions to be determined pending GI function/ results of KUB. 3. If unable to advance to PO diet, may consider alternative form of nutrition. RD will follow up to make appropriate recommendations. Please consult RD if nutrition support ordered by MD. 4. Obtain accurate weights for monitoring purposes. Pt is at moderate nutritional risk. RD will follow hospital course per protocol. Respectfully, FIOR DUDLEY RD, LD Food and Nutritional Services [facility] cc: client file
--- NOTE | ~2017-03-08 | CO ---
Unit #: [id number] #: [id number] Patient: LACHELLE VIDES [id number] [address] [place], [place] [address] [id number] MR#: [id number] NAME: LACHELLE VIDES ROOM: CIC2 Age: 41 Sex: M Admission Date: 03/08/2017 : 1975 Attending Physician: Saul Pacheco M.D. Primary Care Physician: Octaviano Wesbter M.D. Consultation Date: 03/08/2017 CONSULTATION REPORT CHIEF COMPLAINT Abdominal pain. HISTORY OF PRESENT ILLNESS This is a 41-year-old gentleman who has had a several-day history of left upper quadrant pain with some nausea and vomiting. He has had no change in bowel habits. He was admitted to the hospitalists and specifically to the intensive care unit with diabetic ketoacidosis. He has been evaluated by our group in the past for recent cholecystectomy in January of 2017. PAST MEDICAL HISTORY Significant for insulin-dependent diabetes mellitus. He has history of peripheral neuropathy, depression, PTSD and attention deficit hyperactivity disorder. PAST SURGICAL HISTORY He has had laparoscopic cholecystectomy, as mentioned above, left shoulder surgery, left foot surgery and multiple scopes. MEDICATIONS Medications include Neurontin, aspirin, Levemir, Humalog, Protonix and Phenergan. ALLERGIES Codeine and Levaquin. SOCIAL HISTORY He does smoke cigarettes, and he denies any history of alcohol or drug abuse. FAMILY HISTORY Family history is negative for cancer. PHYSICAL EXAMINATION VITAL SIGNS: Temperature was initially 93.8, heart rate 87, blood pressure 113/71. GENERAL: He is in no acute distress. HEENT: Pupils are equal and reactive to light and accommodation, and his extraocular muscles are intact. NECK: Neck is without masses or bruits. LUNGS: Lungs show good breath sounds bilaterally with equal exchange. CARDIOVASCULAR: Cardiac exam shows regular rate and rhythm without murmur. Unit #: [id number] #: [id number] Patient: LACHELLE VIDES ABDOMEN: Abdomen is soft, nondistended. He has 2+ left upper quadrant tenderness, and there are no peritoneal signs. EXTREMITIES: Extremities are without edema or cyanosis. NEUROLOGIC: He is alert and oriented. There are no focal deficits. DIAGNOSTIC STUDIES LABORATORY: White blood count is 16,000, hemoglobin 16. Glucose was 468. Creatinine is 1.2. Lactic acid level is 1.5. IMAGING: CT report is pending. OVERALL IMPRESSION This gentleman has left upper quadrant pain. If CT is negative, we may consider upper endoscopy, and further recommendations are to follow. Dictated by... Humble Griffin III, M.D. VCL/dhiraj TD: 03/10/2017 13:16 JOB #: [id number] CONSULTATION REPORT Page 1 of 1 X Humble Griffin III, MD X CONSULTATION REPORT
--- NOTE | ~2017-03-08 | EKG ---
PATIENT: LACHELLE VIDES UNIT #: [id number] Ventricular Rate: 102 BPM Atrial Rate: 102 BPM P-R Interval: 170 ms QRS Duration: 100 ms Q-T Interval: 416 ms QTC Calculation(Bezet): 542 ms P Clear: 78 degrees Calculated R Clear: 80 degrees Calculated T Clear: 46 degrees Diagnosis Line: Sinus tachycardia Diagnosis Line: Right atrial enlargement Diagnosis Line: Low voltage QRS Diagnosis Line: Prolonged QT Diagnosis Line: Abnormal ECG Diagnosis Line: When compared with ECG of 04-FEB-2017 16:54, Diagnosis Line: Criteria for Septal infarct are no longer Present Diagnosis Line: Poor data quality Diagnosis Line: Confirmed by ERVIN DO MD ([id number]) on 03/08/2017 Diagnosis Line: 7:48:08 PM INTERPRETING MD: ERNESTINA SOUZA
--- NOTE | ~2017-03-08 | CO ---
Unit #: [id number] #: [id number] Patient: LACHELLE VIDES [id number] [address] [address] [id number] I MR#: [id number] NAME: LACHELLE VIDES ROOM: 239 Age: 41 Sex: M Admission Date: 03/08/2017 : 1975 Attending Physician: Saul Pacheco M.D. Primary Care Physician: Octaviano Webster M.D. Consultation Date: 03/13/2017 CONSULTATION REPORT REASON FOR CONSULTATION Followup. DISCUSSION Mr. Burns is a 41-year-old male, seen in room 239, bed 1 on 03/13/2017. The patient reports mood is getting better. Denied any side effects from medication. Sleeping good. Denied any suicidal or homicidal ideation. Denied any psychotic symptom. The patient reports able to sleep good, looking forward to be discharged soon. REVIEW OF SYSTEMS Complete review of system unremarkable. MENTAL STATUS EXAMINATION The patient's vital signs; temperature 98.4, heart rate 81, respiratory rate 18, blood pressure 116/80, and oxygen saturation 100%. General appearance; the patient dressed casually. Attention span and concentration, fair. Speech, regular rate. Oriented in time, place, and person. Mood and affect, sad and dysphoric. Speech, monotone. Thought process, goal directed. The patient denied any thoughts of harming self or others or any psychotic symptom. Recent and remote memory, poor. Insight and judgment, poor. DIAGNOSES Major depressive disorder, recurrent, severe, F33.2; rule out bipolar mood disorder, F31.9. ASSESSMENT/PLAN 1. Supportive psychotherapy and psychoeducation provided to the patient. 2. Educated about benefits and side effects of medication and course and prognosis of illness. 3. Advised to continue with current medication and advised the patient to follow up in [facility] and given crisis line #[phone]. Dictated by... Aiden Trujillo M.D. OMAR/bernardo TD: 03/14/2017 08:02 JOB #: [id number] Unit #: [id number] #: [id number] Patient: LACHELLE VIDES CONSULTATION REPORT Page 1 of 1 X Aiden Trujillo MD CONSULTATION REPORT
--- NOTE | ~2017-03-08 | CR4 ---
[facility] A Service of [facility] & [facility] RADIOLOGY TEXT RESULTS PATIENT: LACHELLE VIDES LOCATION: [address] : [birth year] UNIT #: [id number] AGE: [address]: Saul Pacheco MD SEX: M ORDER DR: [id number] [facility] [address] [facility]. [place], [place] [address] [id number] I MR#: [id number] Acc #: [id number] NAME: LACHELLE VIDES : 1975 SEX: M STUDY DATE/TIME: 03/09/2017 10:24 UNIT: [facility] ROOM: [facility] STUDY DESCRIPTION: CR Abdomen Flat Upright or Dec Attending Physician: Saul Pacheco M.D. Ordering Physician: Humble Griffin III, M.D. Primary Care Physician: Octaviano Webster M.D. MEDICAL IMAGING REPORT This report is preliminary unless electronic signature is present EXAM Abdomen supine and upright 03/09/2017 1024 hours HISTORY 41-year-old man complaining of 6-day history of abdominal pain with nausea and small bowel obstruction. COMPARISON CT abdomen 03/08/2017 FINDINGS Supine and upright views of the abdomen demonstrate moderate gas in the small bowel without definite plain film evidence of wall thickening as was seen on yesterday's CT. The stomach is decompressed. There is no colonic wall thickening or distension. IMPRESSION Nonspecific bowel gas pattern. No definite distension or wall thickening seen in the small bowel as was seen on yesterday's CT. A small amount of colonic gas is present. There is no free air. Dictated by... Ratna Caruso M.D. THIS IS AN ELECTRONICALLY VERIFIED REPORT Ratna Caruso M.D. at 03/09/2017 2:37 PM TAYA/tracier TD: 03/09/2017 12:54 JOB #: [id number] MEDICAL IMAGING REPORT Page 1 of 1 COPY
--- NOTE | ~2017-03-08 | CR72 ---
[facility] A Service of [facility] RADIOLOGY TEXT RESULTS PATIENT: LACHELLE VIDES LOCATION: CIC3 CICCU3-20 : [birth year] UNIT #: [id number] AGE: [address]: Saul Pacheco MD SEX: M ORDER DR: [id number] [facility] [address] [facility]. [place], [place] [address] [id number] I MR#: [id number] Acc #: [id number] NAME: LACHELLE VIDES : 1975 SEX: M STUDY DATE/TIME: 03/08/2017 14:39 UNIT: CEDOF ROOM: 24641 STUDY DESCRIPTION: CR Chest Single View Portable Attending Physician: Saul Pacheco M.D. Ordering Physician: Saul Pacheco M.D. Primary Care Physician: Octaviano Webster M.D. MEDICAL IMAGING REPORT This report is preliminary unless electronic signature is present EXAM Portable chest HISTORY Shortness of air today. FINDINGS A single AP portable view of the chest shows both lungs to be clear. The heart is normal in size. The mediastinal contour is normal. No significant bone abnormalities are seen. IMPRESSION Normal portable chest. Dictated by... Chuck Anne M.D. THIS IS AN ELECTRONICALLY VERIFIED REPORT Chuck Anne M.D. at 03/09/2017 4:28 PM VEE/paddy TD: 03/08/2017 16:33 JOB #: [id number] MEDICAL IMAGING REPORT Page 1 of 1 COPY
--- NOTE | ~2017-03-08 | CO ---
Unit #: [id number] #: [id number] Patient: LACHELLE VIDES [id number] [address] [address] [id number] I MR#: [id number] NAME: LACHELLE VIDES ROOM: 239 Age: 41 Sex: M Admission Date: 03/08/2017 : 1975 Attending Physician: Saul Pacheco M.D. Primary Care Physician: Octaviano Webster M.D. Consultation Date: 03/12/2017 CONSULTATION REPORT REASON FOR CONSULTATION Followup. DISCUSSION Mr. Burns is a 41-year-old white male, seen in room 239, bed 1, on 03/12/2017. The patient dressed casually in hospital attire, lying comfortably. The patient reports medication is helping him. Decrease in anxiety and depression. Denied any suicidal or homicidal ideation. Denied any psychotic symptoms. The patient reports that he will be discharged soon. VITAL SIGNS Temperature 97.9, heart rate 79, respiratory rate 16, blood pressure 103/63, and oxygen saturation 100%. REVIEW OF SYSTEMS Complete review of systems is unremarkable except as mentioned above. MENTAL STATUS EXAMINATION General appearance, the patient dressed casually and lying comfortably in bed. Attention span and concentration, fair. Speech, regular rate and coherent. Oriented in time, place, and person. Mood and affect were sad and dysphoric. Thought process, coherent. Thought content, the patient denied any thoughts of harming self or others or any psychotic symptom. Recent and remote memory, fair. Language, intact. Fund of knowledge, fair. Insight and judgment, fair to slightly impaired. DIAGNOSES Psychiatric: Major depressive disorder, recurrent, severe, F33.2 and rule out bipolar mood disorder. ASSESSMENT AND PLAN 1. Supportive psychotherapy and psychoeducation provided to the patient. 2. Educated about benefits and side effects of medication and course and prognosis of illness. 3. Advised to continue with current medication combination. If needed, consider further adjustment of medication. We will continue to follow and make further adjustment of medication if needed. Dictated by... Aiden Trujillo M.D. [facility] Unit #: [id number] #: [id number] Patient: LACHELLE VIDES TD: 03/12/2017 18:43 JOB #: [id number] CONSULTATION REPORT Page 1 of 1 X Aiden Trujillo MD CONSULTATION REPORT
--- NOTE | ~2017-03-08 | CT4 ---
[facility] A Service of [facility] RADIOLOGY TEXT RESULTS PATIENT: LACHELLE VIDES LOCATION: [address] : [birth year] UNIT #: [id number] AGE: [address]: Saul Pacheco MD SEX: M ORDER DR: [id number] [facility] [address] [place], [place] [address] [id number] I MR#: [id number] Acc #: [id number] NAME: LACHELLE VIDES : 1975 SEX: M STUDY DATE/TIME: 03/08/2017 15:44 UNIT: [facility] ROOM: [facility] STUDY DESCRIPTION: CT Abd and Pelv Wo Cont Attending Physician: Saul Pacheco M.D. Ordering Physician: Isaías Montilla D.O. Primary Care Physician: Octaviano Webster M.D. MEDICAL IMAGING REPORT This report is preliminary unless electronic signature is present EXAM CT of the abdomen and pelvis without contrast HISTORY Abdominal pain, nausea, vomiting and weakness for 5 days. COMPARISON 01/25/2017 TECHNIQUE Axial 5.0 mm images were obtained through the abdomen and pelvis without IV or oral contrast. This CT exam was performed with one or more of the following radiation dose reduction techniques: automatic exposure control, adjustment of mA and/or kV according to patient size, and iterative reconstruction. FINDINGS The lung bases are clear. The gallbladder has been removed. The liver, spleen, pancreas, adrenal glands and kidneys are normal. The stomach and proximal small bowel are slightly distended. They are filled with fluid and the wall appears normal in thickness in the proximal jejunum. There appears to be a transition zone seen in the left lower quadrant where there appears to be wall thickening developing in the small bowel and I believe this continues on within the distal small bowel which has its lumen collapsed but the small bowel still seems to have wall thickening. There is no surrounding inflammation or free fluid. The appendix is normal. The bladder and prostate gland are normal and the bones are normal. IMPRESSION 1. The patient clearly has a partial mid small bowel obstruction within [facility] A Service of [facility] & [facility] RADIOLOGY TEXT RESULTS PATIENT: LACHELLE VIDES LOCATION: CICCU3 CICCU3-20 : [birth year] UNIT #: [id number] AGE: [address]: Saul Pacheco MD SEX: M ORDER DR: the mid to proximal jejunum. The bowel proximal to this point is distended with fluid as is the stomach and the bowel wall in those regions are normal. There appears to be a transition zone where the patient develops wall thickening in the small bowel and I believe the wall thickening continues on throughout most of the small bowel. There is no visible inflammation or free fluid. The appendix is normal. 2. Findings suggest some type of enteritis or infiltrative small bowel abnormality. 3. The appendix is normal. Dictated by... Mayco Grider M.D. THIS IS AN ELECTRONICALLY VERIFIED REPORT Mayco Grider M.D. at 03/09/2017 1:00 PM Liv TD: 03/08/2017 17:13 JOB #: [id number] MEDICAL IMAGING REPORT Page 1 of 1 COPY
--- NOTE | ~2017-03-08 | HP ---
Unit #: [id number] #: [id number] Patient: LACHELLE BUTLER [id number] [facility] [address] [facility]. [place], [place] [address] [id number] I MR#: [id number] NAME: LACHELLE BUTLER ROOM: CICCU3 Age: 41 Sex: M Admission Date: 03/08/2017 : 1975 Attending Physician: Saul Pacheco M.D. Primary Care Physician: Octaviano Webster M.D. HISTORY AND PHYSICAL ADMISSION DIAGNOSES 1. Diabetic ketoacidosis. 2. Continued diarrhea. 3. Insulin dependent diabetes. 4. Peripheral neuropathy. 5. Depression. 6. History of attention deficit hyperactivity disorder. 7. Posttraumatic stress disorder. 8. Status post recent laparoscopic cholecystectomy. 9. Status post Clostridium difficile colitis recently, status post fecal transplant. HISTORY OF PRESENT ILLNESS Mr. Butler is a 41-year-old gentleman, well known to our service secondary to prior admissions with DKA, went to the [facility] today with the complaints of the continuous diarrhea. He was found the blood glucose in 800s in DKA, along with the acute renal failure and was admitted. The patient tells me that the last couple of days he did not take his insulin secondary to feeling ill with a continuous diarrhea. He also complains of some abdominal pain. Denies any nausea, denies any fever or chills. Denies any chest pain, headache, dizziness or syncopal episode. REVIEW OF SYSTEMS Total review of system was negative except as above. PAST MEDICAL HISTORY Significant history of insulin dependent diabetes, peripheral neuropathy, history of recent C. diff colitis, history of depression, anxiety, ADHD in chronic pain. PAST SURGICAL HISTORY Significant for history of recent lap gaurang, left shoulder and left foot surgery, EGD and colonoscopy. HOME MEDICATIONS He was taking gabapentin, aspirin, Levemir, Humalog, Protonix and Phenergan. ALLERGIES Allergic to codeine and Levaquin. SOCIAL HISTORY He is an active smoker. Denies any alcohol or illicit drug use. Unit #: [id number] #: [id number] Patient: LACHELLE BUTLER FAMILY HISTORY Unremarkable. PHYSICAL EXAMINATION GENERAL: Patient is a 41-year-old gentleman in no acute distress. VITAL SIGNS: BP 126/72, heart rate 95, respirations 21, temperature 93.8, don't known if this is an error or not, previous temperature recorded 98.3. HEENT: Head is atraumatic. Pupils equal, round, reactive to light and accommodation. Extraocular muscles intact. Oropharynx clear. NECK: Supple. No mass. No JVD. No bruits. CHEST: Diminished at the bases, but generally clear. HEART: S1 and S2. No murmurs. ABDOMEN: Tender at the left lower quadrant. No rebound. Bowel sounds are present. No distention. LOWER EXTREMITIES: Denies any cyanosis, clubbing, or edema. NEUROLOGIC: Patient grossly intact. No focal deficits. DIAGNOSTIC STUDIES IMAGING STUDIES: Chest x-ray shows normal portable chest. CT of abdomen and pelvis without the contrast shows mild small bowel obstruction within the mid to proximal jejunum, enteritis or infiltrative small bowel abnormality. Normal appendix. LABORATORY STUDIES: Blood gases show pH 7.038, pCO2 24, and pO2 153. Last chemistry shows blood glucose of 468. BUN and creatinine 23 and 1.2. Sodium 131, CO2 less than 5, calcium 7.9, albumin 5.1, indirect bili 1.6, alk phos 142. Lactic acid 1.5. Ketones elevated at 15.3. Cardiac enzymes negative. Hematology - white count 16,000. Blood culture pending. ASSESSMENT AND PLAN 1. DKA admitted to ICU and started on a DKA protocol with IV insulin. Monitor electrolytes closely. Dr. Henao to follow and Dr. Galindo to be transfused. 2. Small bowel obstruction with continuous diarrhea and recent lab gaurang. Will ask general surgery evaluation. Continue NPO. Supportive care, symptomatic management. Serial abdominal exams. Check stool for C. diff. 3. History of chronic pain. 4. History of ADHD and post traumatic stress disorder, along with anxiety. Continue home medications. 5. GI and DVT prophylaxis on Protonix and will put him on SCDs. Actually I will put him on heparin 5,000 units subcu b.i.d. 6. Leukocytosis, check procalcitonin level. Will start him on Flagyl. Dictated by Yamileth Vincent/leonel TD: 03/09/2017 05:14 JOB #: [id number] Unit #: [id number] #: [id number] Patient: LACHELLE BUTLER HISTORY AND PHYSICAL Page 1 of 1 X Saul Pacheco MD HISTORY AND PHYSICAL
--- NOTE | ~2017-03-08 | CO ---
Unit #: [id number] #: [id number] Patient: LACHELLE VIDES [id number] [facility] [address] [facility]. [place], [place] [address] [id number] I MR#: [id number] NAME: LACHELLE VIDES ROOM: 239 Age: 41 Sex: M Admission Date: 03/08/2017 : 1975 Attending Physician: Saul Pacheco M.D. Primary Care Physician: Octaviano Webster M.D. Consultation Date: 03/10/2017 CONSULTATION REPORT REASON FOR CONSULTATION Depression, anxiety. HISTORY OF PRESENT ILLNESS Mr. Burns is a 41-year-old male seen in room 5, CCU2 at [facility] with a chief complaint of depression, anxiety. Mr. Burns presented with depression and anxiety. The patient was admitted in DKA with a glucose level of more than 400. The patient was having problems with diarrhea. Blood glucose was 800, according to the intake reports. DKA, acute renal failure. The patient was admitted to ICU. The patient reports that he has been off from his medication which helped him, Zyprexa and Cymbalta, and would like to go back. The patient currently denied any suicidal or homicidal ideation, denied any psychotic symptoms, pleasant, cooperative. The patient was somewhat upset about being denied from disability. PAST PSYCHIATRIC HISTORY Remarkable for history of depression, anxiety, history of outpatient treatment. No history of any suicide attempt. MEDICAL HISTORY History of diabetic ketoacidosis, diarrhea, insulin-dependent diabetes, peripheral neuropathy, depression, posttraumatic stress disorder, recent cholecystectomy status post C. diff. colitis. MEDICATION HISTORY The patient is on: 1. Gabapentin. 2. Aspirin. 3. Levemir. 4. Humalog. 5. Protonix. 6. Phenergan. ALLERGIES Codeine and Levaquin. FAMILY HISTORY AND SOCIAL HISTORY The patient has a good support system but no history of abuse, history of any substance abuse. REVIEW OF SYSTEMS Complete review of systems was unremarkable. Unit #: [id number] #: [id number] Patient: LACHELLE VIDES MENTAL STATUS EXAMINATION VITAL SIGNS: 98.3, 78, 14, 112/80, oxygen saturation 99%. GENERAL APPEARANCE: Patient dressed casually in hospital attire, lying comfortably in bed. ATTENTION SPAN AND CONCENTRATION: Fair. Pleasant, cooperative during interview. SPEECH: Regular rate, coherent. ORIENTATION: Oriented in time, place and person. MOOD AND AFFECT: Sad, dysphoric. THOUGHT PROCESS: Coherent. THOUGHT CONTENT: The patient denied any thoughts of harming self or others. RECENT AND REMOTE MEMORY: Fair, denied any hallucination. LANGUAGE: Intact. FUND OF KNOWLEDGE: Fair. INSIGHT AND JUDGMENT: Fair to slightly impaired. DIAGNOSIS Psychiatric: 1. Major depressive disorder, recurrent, severe, F33.2. 2. Posttraumatic stress disorder, chronic, F43.12. 3. Anxiety disorder, NOS, F40.01. ASSESSMENT/PLAN 1. Supportive psychotherapy, psychoeducation provided to patient. 2. Educated about benefits and side effects of medication and course and prognosis of illness. 3. Advised to resume Cymbalta 30 mg daily and Zyprexa 10 mg at bedtime if needed. Consider further adjustment of medication. Please feel free to call if any question, telephone number [phone]. Dictated by... Aiden Trujillo M.D. OMAR/tana TD: 03/13/2017 06:47 JOB #: [id number] CONSULTATION REPORT Page 1 of 1 X Aiden Trujillo MD X CONSULTATION REPORT
--- NOTE | ~2017-03-08 | DS ---
Unit #: [id number] #: [id number] Patient: LACHELLE BUTLER [id number] [address] [place], [place] [address] [id number] MR#: [id number] NAME: LACHELLE BUTLER ROOM: 239 Age: 41 Sex: M Admission Date: 03/08/2017 : 1975 Discharge Date: 03/13/2017 Attending Physician: Saul Pacheco M.D. Primary Care Physician: Octaviano Webster M.D. DISCHARGE SUMMARY FINAL DIAGNOSES 1. Diabetic ketoacidosis. 2. Diarrhea with Clostridium difficile positive. 3. Insulin dependent diabetes mellitus, uncontrolled. 4. Peripheral neuropathy. 5. Abdominal pain. 6. Hyponatremia, resolved. 7. Hypokalemia, resolved. 8. Hypophosphatemia. 9. Malnutrition. 10. Major depressive disorder, recurrent. 11. Post traumatic stress disorder. 12. Anxiety disorder. CONSULTATION DURING HOSPITALIZATION 1. Dr. Griffin - [facility]. 2. Dr. Petersen - Pulmonary Services. 3. Dr. Aiden Trujillo - Psych Services. LAB WORKUP ON DISCHARGE BMP shows sodium 139, potassium 3.7, chloride 103, BUN 6, creatinine 0.5, calcium 8.7, amylase 13. CBC shows WBC 4.1, hemoglobin 11.5, hematocrit 33.1, platelet count 216. RADIOLOGICAL STUDIES DONE DURING HOSPITALIZATION Chest x-ray on admission which was normal. CT scan of the abdomen and pelvis was done on admission which shows partial mid small bowel obstruction within the mid to proximal jejunum and possible antritis. Repeat CT scan of abdomen and pelvis was done on March 12 which shows no acute finding, no evidence of obstruction. The bowel loops are nondilated. Appendix is normal. HOSPITAL COURSE Mr. Butler is a 41-year-old male who has had multiple admissions in the hospital. Last discharge was on February 07, 2017. He returned back with the same kind of complaint with nausea and vomiting, was found to be in diabetic ketoacidosis. Patient was admitted to ICU. Started on insulin drip. He is doing much better at this time. There was a question of small bowel obstruction. Dr. Griffin was consulted. Unit #: [id number] #: [id number] Patient: LACHELLE BUTLER patient was treated with bowel rest. Stool tested positive for C. diff. The patient is being started on IV Flagyl. Patient is doing much better at this time. Vomiting has resolved. Abdominal pain is better. Repeat CT scan is normal. Patient is being discharged home in stable condition. EXAMINATION ON DISCHARGE Blood pressure is 116/80, laboratory rate 18, pulse is 81, temperature 98.4, oxygen saturation is 100%. HEAD is normocephalic. CHEST has fair air entry. CVA is regular rhythm. ABDOMEN is soft. EXTREMITIES - negative edema. DISCHARGE INSTRUCTIONS 1. The patient is being discharged home in stable condition. 2. Follow up with primary care provider in one week. 3. Diabetic diet counseling and medication counseling done. Advised to be complete with medications and diet. Patient will continue Flagyl for seven more days. Dictated by... Yamileth Valencia TD: 03/14/2017 11:41 JOB #: [id number] DISCHARGE SUMMARY Page 1 of 1 X Radha Mckay MD X DISCHARGE SUMMARY
--- NOTE | ~2017-03-08 | CO ---
Unit #: [id number] #: [id number] Patient: LACHELLE VIDES [id number] [address] [place], [place] [address] [id number] MR#: [id number] NAME: LACHELLE VIDES ROOM: [facility] Age: 41 Sex: M Admission Date: 03/08/2017 : 1975 Attending Physician: Saul Pacheco M.D. Primary Care Physician: Octaviano Webster M.D. Consultation Date: 03/09/2017 CONSULTATION REPORT REASON FOR CONSULT ICU management. HISTORY OF PRESENT ILLNESS This is a very pleasant 41-year-old male with a past medical history significant for C. diff colitis, depression, anxiety, diabetes, who presented to the emergency room with a complaint of nausea, vomiting, and diarrhea. However, he is describing his diarrhea as different from the previous one he had when he had C. diff. Of note, the patient had a recent fecal transplant at [facility]. Upon presentation to the emergency room, his blood sugar was above 800. The patient denied any fever, chills or night sweats. No cough or chest pain. PAST MEDICAL HISTORY 1. Recurrent C. diff. 2. Diabetes. 3. Depression. 4. Attention deficit hyperactivity disorder. 5. Posttraumatic stress disorder. PAST SURGICAL HISTORY 1. Fecal transplant. 2. Lap cholecystectomy. 3. Left shoulder surgery. 4. Left foot surgery. 5. Multiple EGD and colonoscopy. HOME MEDICATIONS 1. Neurontin. 2. Aspirin. 3. Levemir. 4. Humalog. 5. Protonix. 6. Phenergan. ALLERGIES Codeine and Levaquin. SOCIAL HISTORY The patient is an active smoker. He denies any history of alcohol or drug abuse. FAMILY HISTORY Hypertension. Unit #: [id number] #: [id number] Patient: LACHELLE VIDES PHYSICAL EXAMINATION GENERAL: The patient is in no acute distress. VITAL SIGNS: Blood pressure is 105/68, respiratory rate 19, O2 saturation 98% on room air. HEENT: Atraumatic, normocephalic. PERRLA, EOMI. NECK: Supple. No JVD, no lymphadenopathy. CHEST: Clear to auscultation bilaterally but with decreased breath sounds at the bases. HEART: S1, S2. Slightly tachycardic but no murmur, gallops or rubs. ABDOMEN: Tender to deep palpation. SKIN: No rashes. FACTORY EXPERT: Awake, alert, oriented x3. No focal motor/sensory deficits. DIAGNOSTIC STUDIES LABORATORY: Creatinine 0.5, sodium 133, potassium 3.2, CO2 19, white blood count 10.2, hemoglobin 11.8, platelets 244. IMAGING: CT abdomen is consistent with small bowel obstruction. ASSESSMENT 1. DKA. 2. Small bowel obstruction. 3. Questionable enteritis. 4. Rule out C. diff colitis. 5. Hyponatremia. 6. Hypokalemia. 7. Hypophosphatemia. 8. Malnutrition. 9. Depression. 10. Anxiety. 11. ADHD. PLAN 1. The patient is with critical blood sugar level. He will be continued on insulin drip and will adjust per the DKA protocol. 2. Will keep patient NPO and continue IV hydration. 3. IV Flagyl for possible C. diff, pending culture. 4. Surgical eval for small bowel obstruction. 5. NG-tube if needed. 6. DVT/GI prophylaxis. I would like to thank Dr. Pacheco for allowing me to be part of this patient's care. Dictated by... Silvana Petersen M.D. EA/ty TD: 03/10/2017 06:05 JOB #: [id number] Unit #: [id number] #: [id number] Patient: LACHELLE VIDES CONSULTATION REPORT Page 1 of 1 X SILVANA MIR MD X CONSULTATION REPORT
--- NOTE | ~2017-03-08 | FU ---
[facility] Nutrition Therapy DATE: 03/13/17 Patient: LACHELLE PELAYOKACYGURJIT Physician: ASPEN Address: [address] Room/Bed: [address] [place] [address], Zip: [place] [address] Admit Date: 03/08/17 Date of : [birth year] Height: 6 0 Weight: 128 58.5 NUTRITION MONITORING/FOLLOW-UP: Reason: PT SEEN FOR FOLLOW-UP DX: DKA AND ABDOMINAL PAIN Anthropometrics: 6'0", WT: 139# (63 KG), BMI: 18.7 -ADMIT WEIGHT: 139# Labs: BUN: 6, CREAT: 0.5, ALB: 5.1, HgbA1c: 14.7, LIPASE: 11 Meds: KCL, LEVEMIR, NOVOLOG, PROTONIX, ZOFRAN, NACL I&O's: 3980/807, 3 BMs NOTED Skin: NO BREAKDOWN NOTED Assessment: CHART REVIEWED AND EVENTS NOTED. PT SEEN FOR FOLLOW-UP. PT REPORTS TOLERATING PO INTAKE, PT ATE 100% BREAKFAST THIS AM (TRAY AT BEDSIDE) BUT NOTES SOME DIFFICULTY CHEWING, NOTING MISSING TEETH. PT C/O ABD PAIN AT TIME OF VISIT. PT REQUESTS TO NO LONGER RECEIVE ENSURE CLEAR SHAKES, BUT WOULD LIKE GLUCERNA JAVIER, RD TO ORDER. THIS RD REVIEWED CC DIET EDUCATION WITH PT, PT DEMONSTRATED UNDERSTANDING OF THE TOPIC. RD ALSO ENCOURAGED ADEQUATE KCAL AND PROTEIN INTAKE + LISTED SOFT FOODS , PT AGREED. PT REPORTED NO DIET QUESTIONS AT THIS TIME. RD TO CONTINUE TO FOLLOW. Dx: INADEQUATE PROTEIN-ENERGY INTAKE R/T DKA PROTOCOL, PARTIAL SBO, CLINICAL CONDITION AEB NPO STATUS, CT ABDOMEN.-RESOLVED 2. UNDERWEIGHT R/T PMH AEB BMI OF 19.0, 78%IBW.-ACTIVE NEW Dx: IMPAIRED GLYCEMIC CONTROL R/T DX, PMH AEB ELEVATED BLOOD SUGARS, A1c: 14.7, NEED FOR THERAPEUTIC DIET ORDER. Intervention: 1. CC + GI SOFT DIET 2. D/C ENSURE CLEAR BID 3. GLUCERNA SHAKES BID 4. VERBAL CC DIET EDUCATION Monitoring, Evaluation and Goals: 1. NUTRITION; ADVANCE TO ORAL DIET-MET/IN PROGRESS 2. IMPROVE LABS; K+ (IMPROVED), GLU (IMPROVED), MG+ (IMPROVED)-MET 3. WEIGHT; PREVENT WEIGHT LOSS; PROMOTE WEIGHT MAINTENANCE-IN PROGRESS 4. GI; PROMOTE REGULAR GI FUNCTION-NOT MET NEW GOAL (IN ADDITION TO ABOVE) [facility] Nutrition Therapy DATE: 03/13/17 Patient: LACHELLE VIDES Physician: ASPEN Address: [address] Room/Bed: [address] [place] [address], Zip: [place] [address] Admit Date: 03/08/17 Date of : [birth year] Height: 6 0 Weight: 128 58.5 1. ORAL INTAKE; CONSUME/TOLERATE >50% OF MEALS AND SUPPLEMENTS MONITOR: -PO INTAKE/APPETITE -SUPPLEMENT INTAKE -WEIGHTS -LABS Recommendations: 1. PLEASE D/C ENSURE CLEAR BID W/MEALS. ORDER STRAWBERRY GLUCERNA SHAKES BID W/MEALS 2. CONTINUE TO ENCOURAGE COMPLIANCE OF CURRENT DIET ORDER ABOVE 3. CONTINUE TO OBTAIN ACCURATE WEIGHTS FOR MONITORING PURPOSES RD WILL F/U PER PROTOCOL PT IS MILD/MODERATELY COMPROMISED Respectfully, MAR SANTOS MS, RD, LD Food and Nutritional Services [facility] cc: client file
[~2017-03-08 11:55] MED LIST changes: +LEVEMIR INJ; +NOVOLIN R100 UNITS/ INJ; +PHENERGAN12.5 MG/0. PO
[2017-03-08 12:24] LABS: ARTERIAL BLD GAS O2 SATURATION 96.9 % (90.0-100.0); ARTERIAL BLOOD GAS CARBOXY HB 0.8 %sat (0.0-9.0); ARTERIAL BLOOD GAS MET HB 1.3 %sat (0.0-2.0)
[2017-03-08 12:27] LABS: ARTERIAL BLOOD GAS ALLEN TEST NORMAL; ARTERIAL BLOOD GAS ART SITE RIGHT RADIAL; ARTERIAL BLOOD GAS pH 7.038 (7.350-7.450); ARTERIAL DRAW? YES
[2017-03-08 12:48] LABS: DIFF IND YES; EOSINOPHIL# 0.1 X10e3 (0-0.7); EOSINOPHIL% 0.5 % (0.0-7.0); HEMATOCRIT 48.9 % (38.0-50.0); HEMOGLOBIN 16.3 gm/dL (13.0-16.0); LYMPHOCYTE# 5.2 X10e3 (1.0-3.5); LYMPHOCYTE% 30.7 % (17.0-45.0); MEAN CELL VOLUME 95.8 FL (83-96); MEAN CORPUSCULAR HGB CONC 33.4 g/dL (30-36); MEAN PLATELET VOLUME 7.9 FL (6.5-11.5); MONOCYTE# 4.7 X10e3 (0-1.0); MONOCYTE% 28.1 % (3.0-12.0); NEUTROPHIL# 6.8 X10e3 (1.5-7.1); NEUTROPHIL% 40.7 % (40-75); PLATELET COUNT 415 X10e3 (140-420); RED CELL DISTRIBUTION WIDTH 13.6 % (11.0-15.5); WHITE BLOOD COUNT 16.9 X10e3 (4.0-10.5)
[2017-03-08 13:03] LABS: PLATELET ESTIMATE NORMAL (NORMAL); RBC NORMAL YES
[2017-03-08 13:13] LABS: ALBUMIN SERUM 5.1 g/dL (3.5-5.0); ALKALINE PHOSPHATASE 142 U/L (32-92); ALT (SGPT) 28 U/L (10-40); AST (SGOT) 13 U/L (10-42); BILIRUBIN, DIRECT 0.1 mg/dL (0.0-0.2); BILIRUBIN,INDIRECT 1.6 mg/dL (0.0-0.9); BILIRUBIN,TOTAL 1.7 mg/dL (0.2-2.0); BLOOD UREA NITROGEN 22 mg/dL (9-23); BUN/CREATININE RATIO 15.71; CALCIUM SERUM 9.1 mg/dL (8.4-10.2); CARBON DIOXIDE <5 mmol/L (22-31); CHLORIDE 97 mmol/L (100-111); CREATININE SERUM 1.4 mg/dL (0.6-1.4); GLOM FILT RATE Estimated 61.1 mL/min (>60); GLUCOSE FASTING 464 mg/dL (70-110); LIPASE 22 U/L (22-51); POTASSIUM 3.5 mmol/L (3.5-5.1); PROTEIN TOTAL SERUM 8.1 g/dL (6.0-8.3); SODIUM 134 mmol/L (135-145)
[2017-03-08 13:14] LABS: POC - TROPONIN <0.05 ng/mL (<=0.05)
[2017-03-08] MEDS ORDERED: ASPIRIN81 M2 PO (13:36)
[2017-03-08] MEDS ORDERED: GABAPENTIN400 M2 PO (13:36)
[2017-03-08] MEDS ORDERED: BASAGLAR K100 UNIT/1 SUBQ (13:36)
[2017-03-08] MEDS ORDERED: PHENERGAN PO (13:37)
[2017-03-08] MEDS ORDERED: PROTONIX PO (13:37)
[2017-03-08] MEDS ORDERED: HUMALOG KW100 UNIT/1 SUBQ (13:37)
[2017-03-08 15:41] LABS: AMYLASE 13 U/L (0-46); BLOOD UREA NITROGEN 23 mg/dL (9-23); BUN/CREATININE RATIO 19.16; CALCIUM SERUM 7.9 mg/dL (8.4-10.2); CHLORIDE 101 mmol/L (100-111); CREATININE SERUM 1.2 mg/dL (0.6-1.4); GLOM FILT RATE Estimated 73.6 mL/min (>60); GLUCOSE FASTING 468 mg/dL (70-110); LIPASE 23 U/L (22-51); POTASSIUM 3.7 mmol/L (3.5-5.1); SODIUM 131 mmol/L (135-145)
[2017-03-08 15:43] LABS: CARBON DIOXIDE <5 mmol/L (22-31)
[2017-03-08 20:20] LABS: BUN/CREATININE RATIO 26.66; CALCIUM SERUM 7.7 mg/dL (8.4-10.2); CREATININE SERUM 0.9 mg/dL (0.6-1.4); GLOM FILT RATE Estimated 104.2 mL/min (>60); PHOSPHOROUS 2.4 mg/dL (2.5-4.6); POTASSIUM 3.2 mmol/L (3.5-5.1)
[2017-03-09 00:51] LABS: BUN/CREATININE RATIO 31.42; CREATININE SERUM 0.7 mg/dL (0.6-1.4); GLOM FILT RATE Estimated 115.6 mL/min (>60)
[2017-03-09 00:59] LABS: POTASSIUM 2.5 mmol/L (3.5-5.1)
[2017-03-09 06:22] LABS: URINE SOURCE CLEAN CATCH
[2017-03-09 06:28] LABS: URINE APPEARANCE CLEAR; URINE BILIRUBIN NEG (NEG); URINE BLOOD 4+ (NEG); URINE COLOR YELLOW; URINE GLUCOSE 1000 MG/DL (NORM); URINE KETONE 3+ (NEG); URINE LEUKOCYTE ESTERASE NEG (NEG); URINE NITRATE NEG (NEG); URINE PROTEIN 1+ (NEG); URINE UROBILINOGEN NORM (NORM)
[2017-03-09 06:36] LABS: URINE BACTERIA AUWI NEG (NEGATIVE); URINE SQUAMOUS EPITHELIAL CELL NONE SEEN /[HPF]; UWBCS1 AUWI 0-2 (0-5)
[2017-03-09 06:57] LABS: BASOPHIL% 0.3 % (0-2.5); EOSINOPHIL% 0.5 % (0.0-7.0); HEMATOCRIT 33.5 % (38.0-50.0); LYMPHOCYTE# 0.9 X10e3 (1.0-3.5); LYMPHOCYTE% 9.1 % (17.0-45.0); MEAN CORPUSCULAR HEMOGLOBIN 31.9 PG (28-34); MEAN CORPUSCULAR HGB CONC 35.1 g/dL (30-36); MEAN PLATELET VOLUME 7.3 FL (6.5-11.5); MONOCYTE% 9.8 % (3.0-12.0); NEUTROPHIL# 8.2 X10e3 (1.5-7.1); NEUTROPHIL% 80.3 % (40-75); PLATELET COUNT 244 X10e3 (140-420); RED BLOOD COUNT 3.69 X10e (3.90-5.60); RED CELL DISTRIBUTION WIDTH 13.3 % (11.0-15.5); WHITE BLOOD COUNT 10.2 X10e3 (4.0-10.5)
[2017-03-09 07:00] LABS: HEMOGLOBIN 11.8 gm/dL (13.0-16.0); MEAN CELL VOLUME 90.9 FL (83-96)
[2017-03-09 07:01] LABS: DIFF IND NO
[2017-03-09 07:28] LABS: CALCIUM SERUM 8.2 mg/dL (8.4-10.2); CREATININE SERUM 0.5 mg/dL (0.6-1.4); GLOM FILT RATE Estimated 132.8 mL/min (>60); PHOSPHOROUS 1.1 mg/dL (2.5-4.6)
[2017-03-09 10:43] LABS: AMYLASE 13 U/L (0-46); LIPASE 11 U/L (22-51)
[2017-03-09 12:58] LABS: CALCIUM SERUM 8.3 mg/dL (8.4-10.2); CREATININE SERUM 0.4 mg/dL (0.6-1.4); GLOM FILT RATE Estimated 145.5 mL/min (>60)
[2017-03-09 13:00] LABS: POTASSIUM 2.9 mmol/L (3.5-5.1)
[2017-03-09 19:10] LABS: CALCIUM SERUM 7.8 mg/dL (8.4-10.2); CREATININE SERUM 0.5 mg/dL (0.6-1.4); GLOM FILT RATE Estimated 132.8 mL/min (>60); POTASSIUM 3.2 mmol/L (3.5-5.1)
[2017-03-10 05:43] LABS: BASOPHIL# 0.1 X10e3 (0-0.3); BASOPHIL% 0.9 % (0-2.5); EOSINOPHIL# 0.1 X10e3 (0-0.7); EOSINOPHIL% 1.4 % (0.0-7.0); HEMATOCRIT 31.7 % (38.0-50.0); HEMOGLOBIN 10.9 gm/dL (13.0-16.0); LYMPHOCYTE# 1.5 X10e3 (1.0-3.5); MEAN CELL VOLUME 92.1 FL (83-96); MEAN CORPUSCULAR HEMOGLOBIN 31.8 PG (28-34); MEAN CORPUSCULAR HGB CONC 34.5 g/dL (30-36); MEAN PLATELET VOLUME 7.8 FL (6.5-11.5); MONOCYTE# 0.5 X10e3 (0-1.0); MONOCYTE% 7.6 % (3.0-12.0); NEUTROPHIL# 4.5 X10e3 (1.5-7.1); NEUTROPHIL% 68.1 % (40-75); PLATELET COUNT 200 X10e3 (140-420); RED BLOOD COUNT 3.44 X10e (3.90-5.60); RED CELL DISTRIBUTION WIDTH 13.3 % (11.0-15.5); WHITE BLOOD COUNT 6.6 X10e3 (4.0-10.5)
[2017-03-10 05:49] LABS: DIFF IND NO
[2017-03-10 06:34] LABS: CALCIUM SERUM 8.1 mg/dL (8.4-10.2); CREATININE SERUM 0.5 mg/dL (0.6-1.4); GLOM FILT RATE Estimated 132.8 mL/min (>60); MAGNESIUM 1.6 mg/dL (1.6-3.0)
[2017-03-10 06:35] LABS: POTASSIUM 2.7 mmol/L (3.5-5.1)
[2017-03-11 06:49] LABS: BUN/CREATININE RATIO 12.5; CALCIUM SERUM 8.3 mg/dL (8.4-10.2); CREATININE SERUM 0.4 mg/dL (0.6-1.4); GLOM FILT RATE Estimated 145.5 mL/min (>60); MAGNESIUM 1.7 mg/dL (1.6-3.0)
[2017-03-11 06:56] LABS: POTASSIUM 2.8 mmol/L (3.5-5.1)
[2017-03-12 06:33] LABS: CALCIUM SERUM 8.5 mg/dL (8.4-10.2); CREATININE SERUM 0.5 mg/dL (0.6-1.4); GLOM FILT RATE Estimated 132.8 mL/min (>60); MAGNESIUM 1.7 mg/dL (1.6-3.0); POTASSIUM 3.2 mmol/L (3.5-5.1)
[2017-03-12 08:16] LABS: HEMATOCRIT 33.1 % (38.0-50.0); HEMOGLOBIN 11.5 gm/dL (13.0-16.0); MEAN CELL VOLUME 92.5 FL (83-96); MEAN CORPUSCULAR HEMOGLOBIN 32.2 PG (28-34); MEAN CORPUSCULAR HGB CONC 34.8 g/dL (30-36); MEAN PLATELET VOLUME 8.5 FL (6.5-11.5); RED BLOOD COUNT 3.58 X10e (3.90-5.60); RED CELL DISTRIBUTION WIDTH 13.8 % (11.0-15.5); WHITE BLOOD COUNT 4.1 X10e3 (4.0-10.5)
[2017-03-13 06:44] LABS: CALCIUM SERUM 8.7 mg/dL (8.4-10.2); CREATININE SERUM 0.5 mg/dL (0.6-1.4); GLOM FILT RATE Estimated 132.8 mL/min (>60); MAGNESIUM 1.7 mg/dL (1.6-3.0); POTASSIUM 3.7 mmol/L (3.5-5.1)
[2017-03-13] MEDS ORDERED: FLAGYL PO (11:29)
[2017-04-27] MEDS ORDERED: PROTONIX PO (11:15)
[2017-04-27] MEDS ORDERED: ASPIRIN81 M2 PO (11:15)
[2017-04-27] MEDS ORDERED: LORTAB 7.5-3251 EACH PO (11:15)
[2017-04-27] MEDS ORDERED: PATIENT'S PHARMACY (11:15)
[2017-04-27] MEDS ORDERED: BASAGLAR K100 UNIT/1 SUBQ (11:16)
[2017-04-27] MEDS ORDERED: DULOXETINE HCL60 M1 PO (11:16)
[2017-04-27] MEDS ORDERED: PRAVACHOL PO (11:16)
[2017-04-27] MEDS ORDERED: HUMALOG KW100 UNIT/1 SUBQ (11:16)
[2017-04-27] MEDS ORDERED: GABAPENTIN400 M2 PO (11:16)
[2017-04-27] MEDS ORDERED: ZYPREXA PO (11:16)
== END 2017-03-13 12:07 | disposition home or self-care (01) | DRG 638 ==
LOC: CED 11:55 → CICCU2 13:40 → CEDOF 13:40 → CED 14:06 → CICCU3 16:34 → CICCU2 03-09 20:06 → C2A 03-10 17:55
PROVIDERS: Emergency Medicine; Hospitalist; Internal Medicine Pulmonary Disease; Physician Assistant Medical; Surgery
DX: E13.10 Other specified diabetes mellitus with ketoacidosis without coma (principal); A04.7 Enterocolitis due to Clostridium difficile; K56.60 Unspecified intestinal obstruction; E46 Unspecified protein-calorie malnutrition; F33.2 Major depressive disorder, recurrent severe without psychotic features; E87.1 Hypo-osmolality and hyponatremia; E11.40 Type 2 diabetes mellitus with diabetic neuropathy, unspecified; E87.6 Hypokalemia; E83.39 Other disorders of phosphorus metabolism; F43.10 Post-traumatic stress disorder, unspecified; F41.9 Anxiety disorder, unspecified; F90.9 Attention-deficit hyperactivity disorder, unspecified type; F17.210 Nicotine dependence, cigarettes, uncomplicated; Z79.4 Long term (current) use of insulin; Z88.1 Allergy status to other antibiotic agents; Z88.5 Allergy status to narcotic agent; Z90.49 Acquired absence of other specified parts of digestive tract
CPT/HCPCS: 36415; 36600; 71010; 74020; 74176; 80048; 80076; 81003; 82010; 82150; 82308; 82553; 82803; 82947; 83036; 83605; 83690; 83735; 84100; 84132; 84484; 85025; 85027; 87040; 87086; 87493; 93005; 96361; 96374; 96375; 99285; C9113; J1650; J1815; J2270; J2405; J3475